=== PATIENT | female | born 1960 | race Caucasian/White ===

== ENCOUNTER 2020-07-02 09:10 | Outpatient (REF) | payer MEDICARE, SELFPAY ==
[2020-07-02 11:23] LABS: MANUAL DIFF FLAG NO
[2020-07-02 11:33] LABS: Basophils Absolute Auto 0.1 X10*3/uL (0.0-0.2); Basophils Percent Auto 0.6 % (0-2); Eosinophils Absolute Auto 0.2 X10*3/uL (0.0-0.4); Eosinophils Percent Auto 2.2 % (0-4); Hemoglobin 12.6 g/dl (12.0-16.0); Imm Gran Abs Auto 0.06 X10*3/uL (0.00-0.03); Imm Gran Pct Auto 0.6 % (0.0-0.4); Lymphocytes Absolute Auto 2.3 X10*3/uL (1.2-4.9); Lymphocytes Percent Auto 23.3 % (20-40); Mean Corpuscular HGB Conc 29.3 g/dl (31.0-35.0); Mean Corpuscular Hemoglobin 24.3 pg (27.0-33.0); Mean Platelet Volume 11.9 fL (9.4-12.3); Monocytes Absolute Auto 0.7 X10*3/uL (0.1-1.2); Neutrophils Absolute Auto 6.7 X10*3/uL (2.0-8.3); Neutrophils Percent Auto 66.3 % (45-73); Platelet Count 318 X10*3/uL (160-400); Red Blood Count 5.18 X10*6/uL (4.20-5.50); Red Cell Distribution Width 14.6 % (11.0-16.0)
[2020-07-02 11:44] LABS: Alanine Aminotransferase 27 U/L (0-31); Albumin Level 4.3 g/dL (3.5-5.0); Alkaline Phosphatase 98 U/L (39-117); Anion Gap 14 (12-20); Aspartate Amino Transferase 21 U/L (5-31); Bilirubin Total 0.3 mg/dL (0.0-1.0); Blood Urea Nitrogen 16 mg/dL (9-16); Calcium 9.1 mg/dL (8.4-10.2); Carbon Dioxide 27 mmol/L (22-29); Chloride 103 mmol/L (96-108); Cholesterol 190 mg/dL; Estimated Glomerular Filt Rate > 60; Glucose Fasting 156 mg/dL (60-99); HDL Cholesterol 74 mg/dL; LDL Cholesterol Calculated 89 mg/dl; Potassium 4.8 mmol/l (3.3-5.1); Sodium 139 mmol/L (135-145); Total Protein 6.8 g/dL (6.5-8.0); Triglycerides 139 mg/dL
[2020-07-02 11:56] LABS: Creatinine Urine 154.94 mg/dL; Microalbum/Creatinine Ratio Ur 10.3 ug/mg cr
[2020-07-02 12:07] LABS: TSH reflex Free T4 1.29 mIU/mL (0.32-4.0); Vitamin D 25-OH Total 34.4 ng/mL (>30)
[2020-07-02 12:24] LABS: Folate 8.3 ng/mL (> or = 4.0); Vitamin B12 1855 pg/mL (200-900)
== END 2020-07-02 09:11 | disposition home or self-care (01) ==
LOC: HO.HMGCLDS 09:10
PROVIDERS: PCP Internal Medicine; Visit Provider Internal Medicine
DX: E11.22 Type 2 diabetes mellitus with diabetic chronic kidney disease (principal); N18.30 Chronic kidney disease, stage 3 unspecified; E78.2 Mixed hyperlipidemia; E66.01 Morbid (severe) obesity due to excess calories; G62.9 Polyneuropathy, unspecified
CPT/HCPCS: 36415; 80053; 80061; 82043; 82306; 82607; 82746; 84443; 85025

== ENCOUNTER → 2020-08-21 13:07 | Outpatient (BNVA) | payer MEDICARE, SELFPAY | PROVIDERS: PCP Internal Medicine; Visit Provider Urology | DX: Z13.89 Encounter for screening for other disorder (principal) | CPT/HCPCS: 99202 ==

== ENCOUNTER → 2020-09-23 08:48 | Outpatient (BNVA) | payer MEDICARE, SELFPAY | PROVIDERS: PCP Internal Medicine; Visit Provider Urology | DX: N32.1 Vesicointestinal fistula (principal) | CPT/HCPCS: 52000; 81002; 99212 ==

== ENCOUNTER 2020-10-20 14:49 | Outpatient (REF) | payer MEDICARE, SELFPAY ==
[2020-10-20 16:59] LABS: Blood Urea Nitrogen 17 mg/dL (9-16); Estimated Glomerular Filt Rate 59
== END 2020-10-20 14:50 | disposition home or self-care (01) ==
LOC: HO.LAB 14:49
PROVIDERS: PCP Internal Medicine; Visit Provider Surgery
DX: N32.1 Vesicointestinal fistula (principal)
CPT/HCPCS: 36415; 82565; 84520; 99202

== ENCOUNTER 2020-10-31 13:21 | Outpatient (REF) | payer MEDICARE, SELFPAY ==
--- NOTE | ~2020-10-31 | CT_ITS ---
EXAMINATION: CT ABDOMEN AND PELVIS WITH CONTRAST CLINICAL INFORMATION: Vesicointestinal fistula. COMPARISON: None TECHNIQUE: Multidetector volumetric images were obtained from the superior aspect of the liver through the pubic symphysis following administration 85 mL of Omnipaque 350 intravenous contrast. Sagittal and coronal reformatted images were obtained on the technologist's workstation. Oral contrast: No This CT examination was performed using dose optimization techniques as appropriate, variously including the following: *Automated exposure control *Adjustment of mA and/or kV according to patient size (this includes techniques or standardized protocols for targeted exams where dose is matched to indication/reason for exam; i.e. extremities or head) *Use of iterative reconstruction technique DLP: 784 mGy-cm FINDINGS: LUNG BASES: The visualized lung bases are unremarkable. LIVER, GALLBLADDER, AND BILIARY TREE: The liver is normal in size, shape, and hypoattenuation. No focal hepatic lesion or biliary ductal dilatation is present. The gallbladder is not visualized. PANCREAS: There is mild attenuation of head and uncinate process of the pancreas. The body and the tail of pancreas is unremarkable. SPLEEN: Unremarkable. ADRENAL GLANDS: Unremarkable. KIDNEYS AND URETERS: The kidneys are normal in size, lobulated shape, and normal attenuation. No hydronephrosis, hydroureter, or calculi seen. No perinephric stranding. BLADDER: Unremarkable. GASTROINTESTINAL TRACT: There is scattered stool and diverticula seen throughout the colon without any distention or diverticulitis. The small bowel loops are normal caliber. No free air or free fluid seen. No abnormal fluid collection or abscess seen. ABDOMINAL WALL: No significant hernia is appreciated. LYMPH NODES: Normal. VASCULAR: Unremarkable. PELVIC VISCERA: The uterus has been surgically removed. There is no free air or free fluid. There is no adnexal mass seen. OSSEOUS STRUCTURES: There are degenerative disc changes and ventral spondylosis throughout the lower dorsal and lumbar spine. No lytic process. CT/CT abdomen pelvis w con IMPRESSION: Sigmoid diverticulosis without diverticulitis. There is no fistulous connection, air-fluid level or fluid collection adjacent to the sigmoid colon and the bladder. Lobulated right kidney contour but no radiopaque renal calculi or hydronephrosis seen. Moderate constipation. Diffuse attenuation of liver likely hepatic steatosis. No focal lesion seen.
[2020-10-31] MEDS: iohexoL 350 MG/ML 100 ML INFUS..BTL IV (14:36)
== END 2020-10-31 13:22 | disposition home or self-care (01) ==
LOC: HO.CT 13:21
PROVIDERS: PCP Internal Medicine; Visit Provider Surgery
DX: N32.1 Vesicointestinal fistula (principal)
CPT/HCPCS: 74177; Q9967

== ENCOUNTER 2020-11-03 14:23 | Outpatient (REF) | payer MEDICARE, SELFPAY ==
--- NOTE | ~2020-11-03 | XR_ITS ---
EXAMINATION: XR KNEE, RIGHT CLINICAL INFORMATION: Pain COMPARISON: Previous x-ray August 2007 TECHNIQUE: Four views of the right knee. FINDINGS: There is a slight medial subluxation of the distal femur with respect to the proximal tibia. Bone alignment is otherwise normal. No fracture or dislocation is seen. There is joint space narrowing at the medial femoral tibial joint. There is lateral degenerative meniscal calcification. There are osteophytes at the patellofemoral joint. There is a slight lateral subluxation of the patella on the sunrise view. There is no significant joint effusion. XR/XR knee RT 4V IMPRESSION: Degenerative changes and medial subluxation of the distal tibia with respect to the proximal fibula. This appears increased from 2018 exams.
== END 2020-11-03 14:24 | disposition home or self-care (01) ==
LOC: HO.XRAY 14:23
PROVIDERS: PCP Internal Medicine; Visit Provider Internal Medicine
DX: N32.1 Vesicointestinal fistula (principal); R39.89 Other symptoms and signs involving the genitourinary system; E11.9 Type 2 diabetes mellitus without complications; I10 Essential (primary) hypertension; E78.2 Mixed hyperlipidemia; E66.01 Morbid (severe) obesity due to excess calories; Z88.1 Allergy status to other antibiotic agents; Z91.041 Radiographic dye allergy status; Z91.013 Allergy to seafood; Z88.2 Allergy status to sulfonamides; Z88.8 Allergy status to other drugs, medicaments and biological substances; Z91.018 Allergy to other foods; Z91.81 History of falling; Z79.84 Long term (current) use of oral hypoglycemic drugs; Z79.899 Other long term (current) drug therapy
CPT/HCPCS: 73564; 99212

== ENCOUNTER → 2021-01-05 09:49 | Outpatient (BNVA) | payer MEDICARE, SELFPAY | PROVIDERS: PCP Internal Medicine; Visit Provider Nurse Practitioner Gerontology | DX: E11.65 Type 2 diabetes mellitus with hyperglycemia (principal); E78.2 Mixed hyperlipidemia; I10 Essential (primary) hypertension; E66.01 Morbid (severe) obesity due to excess calories; Z68.42 Body mass index [BMI] 45.0-49.9, adult | CPT/HCPCS: 82947; 99212 ==

== ENCOUNTER 2021-01-13 11:20 | Outpatient (REF) | payer MEDICARE, SELFPAY ==
--- NOTE | ~2021-01-13 | US_ITS ---
EXAMINATION: US THYROID CLINICAL INFORMATION: Nontoxic goiter, unspecified. COMPARISON: None TECHNIQUE: Linear transducer grayscale and color Doppler examination with attention to the region of the thyroid. FINDINGS: SIZE: Measurements of the thyroid lobes and nodules are given in sagittal, anteroposterior and transverse dimensions respectively. Right Thyroid Lobe: 5.4 x 1.5 x 1.7 cm, volume 7.1 mL. Parenchyma: The gland echotexture is heterogeneous. Thyroid vascularity is normal. Left Thyroid Lobe: 5.6 x 1.5 x 1.9 cm, volume 8.4 mL. Parenchyma: The gland echotexture is heterogeneous. Thyroid vascularity is normal. Isthmus: 0.6 cm in maximum AP dimension. Estimated total number of nodules greater than or equal to 1 cm: 3. Patient Care Technician nodules are described as follows: 1. Location: Right mid pole. Size: 0.9 x 0.6 x 1.0 cm, volume 0.28 mL. Nodule characteristics: Composition: Spongiform (0). ACR TI-RADS total points: 0 ACR TI-RADS category: 1 2. Location: Right mid pole. Size: 1.0 x 0.5 x 0.7 cm, volume 0.18 mL. Nodule characteristics: Composition: Spongiform (0). ACR TI-RADS total points: 0 ACR TI-RADS category: 1 3. Location: Left lower pole. Size: 1.8 x 1.7 x 1.7 cm, volume 2.7 mL. Nodule characteristics: Composition: Solid (2). Echogenicity: Hyperechoic (1). Shape: Not taller than wide (0). Margins: Smooth (0). Echogenic Foci: None (0). ACR TI-RADS total points: 3 ACR TI-RADS category: 3 NODES: No lymphadenopathy is seen in the tissue surrounding the thyroid gland. US/US thyroid IMPRESSION: 1. Bilateral thyroid nodules are seen, as detailed. Recommend follow-up ultrasound examination in one year. 2. There is heterogeneous thyroid echotexture, which can be associated with thyroiditis. ACR TI-RADS RECOMMENDATION REFERENCE: Ultrasound-guided fine-needle aspiration, followup ultrasound, no further follow up. * TR1 (0 point) and TR 2 (2 points): No FNA or follow up * TR3 (3 points): FNA if more than or equal to 2.5 cm in maximum dimension, followup ultrasound in 1, 3 and 5 years if 1.5 to 2.4 cm in maximum dimension. * TR4 (4-6 points): FNA if more than or equal to 1.5 cm in maximum dimension, followup ultrasound in 1, 2, 3 and 5 years if 1 to 1.4 cm in maximum dimension. * TR5 (more than or equal to 7 points): FNA if more than or equal to 1 cm in maximum dimension, followup ultrasound every year for 5 years if 0.5 to 0.9 cm in maximum dimension. * TR3, TR4 or TR5 nodules that are below the size threshold for follow up receive no follow up.
== END 2021-01-13 11:21 | disposition home or self-care (01) ==
LOC: HO.HMGCX 11:20
PROVIDERS: PCP Internal Medicine; Visit Provider Nurse Practitioner Gerontology
DX: E04.9 Nontoxic goiter, unspecified (principal)
CPT/HCPCS: 76536

== ENCOUNTER 2021-01-20 08:58 | Outpatient (REF) | payer MEDICARE, SELFPAY ==
[2021-01-20 12:13] LABS: Free T4 (Free Thyroxine) 1.01 ng/dL (0.71-1.85); Thyroid Stimulating Hormone 1.75 uIU/mL (0.32-4.0)
[2021-01-21 20:06] LABS: Thyroglobulin Antibodies <1 IU/mL (< or = 1); Thyroid Peroxidase Antibodies <1 IU/mL (<9)
== END 2021-01-20 08:59 | disposition home or self-care (01) ==
LOC: HO.HMGCLDS 08:58
PROVIDERS: PCP Internal Medicine; Visit Provider Nurse Practitioner Gerontology
DX: E04.9 Nontoxic goiter, unspecified (principal)
CPT/HCPCS: 36415; 84439; 84443; 86376; 86800

== ENCOUNTER 2021-03-17 08:43 | Outpatient (REF) | payer MEDICARE, SELFPAY ==
[2021-03-17 12:25] LABS: Creatinine Urine 147.46 mg/dL; Microalbum/Creatinine Ratio Ur 16.9 ug/mg cr
[2021-03-17 12:33] LABS: Alanine Aminotransferase 23 U/L (0-31); Albumin Level 4.2 g/dL (3.5-5.0); Alkaline Phosphatase 97 U/L (39-117); Anion Gap 15 (12-20); Aspartate Amino Transferase 21 U/L (5-31); Bilirubin Total 0.2 mg/dL (0.0-1.0); Blood Urea Nitrogen 14 mg/dL (9-16); Calcium 9.9 mg/dL (8.4-10.2); Carbon Dioxide 24 mmol/L (22-29); Chloride 104 mmol/L (96-108); Cholesterol 196 mg/dL; Estimated Glomerular Filt Rate 56; Glucose Fasting 311 mg/dL (60-99); HDL Cholesterol 54 mg/dL; LDL Cholesterol Calculated 94 mg/dl; Potassium 4.9 mmol/L (3.3-5.1); Sodium 138 mmol/L (135-145); Total Protein 6.8 g/dL (6.5-8.0); Triglycerides 241 mg/dL
[2021-03-21 13:16] LABS: Vitamin D 25-OH, D2 <4 ng/mL; Vitamin D 25-OH, D3 41 ng/mL; Vitamin D 25-OH, Total 41 ng/mL (30-100)
== END 2021-03-17 08:44 | disposition home or self-care (01) ==
LOC: HO.HMGCLDS 08:43
PROVIDERS: PCP Internal Medicine; Visit Provider Internal Medicine
DX: E78.2 Mixed hyperlipidemia (principal); E78.5 Hyperlipidemia, unspecified; E11.9 Type 2 diabetes mellitus without complications; E55.9 Vitamin D deficiency, unspecified
CPT/HCPCS: 36415; 80053; 80061; 82043; 82306

== ENCOUNTER 2021-03-26 07:45 | Outpatient (REF) | payer MEDICARE, SELFPAY ==
--- NOTE | 2021-03-26 08:44 | PM.OP ---
Brief Operative Note Date of Service: 03/26/21 Pre-op diagnosis: Multinodular Thyroid Procedure: This is doctor Leigha Kuhn. This is an ultrasound-guided fine-needle aspiration report. Date of Examination: 03/26/2021 Indication: Multinodular Thyroid Porcedure: Procedure was explained to the patient. Alternatives, the risk and benefits were discussed. Written consent was obtained. A time-out was also obtained. After sterile preparation, fine-needle aspiration of a left lower pole 1.8 cm thyroid nodule was performed using direct ultrasound guidance to confirm accurate needle placement. Four aspirations were made using 27 gauge needles. Samples were submitted for cytology. 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 The patient tolerated the procedure well. Aftercare instructions were provided. Impression: Uncomplicated fine needle aspiration biopsy of a left lower pole 1.8 cm thyroid nodule under ultrasound guidance. The 2 right mid pole nodules that were previously measured at 1.0 cm, measured 0.7 cm and 0.8 cm in greatest dimension today, thus no FNA biopsy was performed on these nodules. Surgeon: Leigha Kuhn, DO Was an Party Director used for this Procedure?: No Estimated blood loss (mL): 0
== END 2021-03-26 07:46 | disposition home or self-care (01) ==
LOC: HO.US 07:45
PROVIDERS: PCP Internal Medicine; Visit Provider Internal Medicine
DX: E04.2 Nontoxic multinodular goiter (principal)
CPT/HCPCS: 10005; 88172; 88173; 88177

== ENCOUNTER → 2021-03-27 08:38 | Outpatient (BNVA) | payer MEDICARE, SELFPAY | PROVIDERS: PCP Internal Medicine; Visit Provider Nurse Practitioner Gerontology | DX: E11.65 Type 2 diabetes mellitus with hyperglycemia (principal); E66.01 Morbid (severe) obesity due to excess calories; E78.2 Mixed hyperlipidemia; E04.9 Nontoxic goiter, unspecified; I10 Essential (primary) hypertension; Z68.42 Body mass index [BMI] 45.0-49.9, adult | CPT/HCPCS: Q3014 ==

== ENCOUNTER → 2021-04-09 11:14 | Outpatient (BNVA) | payer MEDICARE, SELFPAY | PROVIDERS: PCP Internal Medicine; Visit Provider Internal Medicine | DX: Z13.89 Encounter for screening for other disorder (principal) | CPT/HCPCS: Q3014 ==

== ENCOUNTER → 2021-05-21 10:22 | Outpatient (BNVA) | payer MEDICARE, SELFPAY | PROVIDERS: PCP Internal Medicine; Visit Provider Nurse Practitioner Gerontology | DX: E11.65 Type 2 diabetes mellitus with hyperglycemia (principal); E78.2 Mixed hyperlipidemia; E66.01 Morbid (severe) obesity due to excess calories; I10 Essential (primary) hypertension; Z68.42 Body mass index [BMI] 45.0-49.9, adult; Z79.4 Long term (current) use of insulin | CPT/HCPCS: 82947; 99212 ==

== ENCOUNTER → 2021-07-20 10:40 | Outpatient (BNVA) | payer MEDICARE, SELFPAY | PROVIDERS: PCP Internal Medicine; Referring Provider Internal Medicine; Visit Provider Physician Assistant | DX: Z12.11 Encounter for screening for malignant neoplasm of colon (principal); N32.1 Vesicointestinal fistula; N36.0 Urethral fistula; F41.9 Anxiety disorder, unspecified | CPT/HCPCS: 99202 ==

== ENCOUNTER 2021-07-23 07:21 | Outpatient (REF) | payer MEDICARE, SELFPAY ==
[2021-07-23 11:35] LABS: Alanine Aminotransferase 33 U/L (0-31); Albumin Level 4.1 g/dL (3.5-5.0); Alkaline Phosphatase 100 U/L (39-117); Anion Gap 13 (12-20); Aspartate Amino Transferase 31 U/L (5-31); Bilirubin Total 0.3 mg/dL (0.0-1.0); Blood Urea Nitrogen 14 mg/dL (9-16); Calcium 9.7 mg/dL (8.4-10.2); Carbon Dioxide 24 mmol/L (22-29); Chloride 106 mmol/L (96-108); Cholesterol 192 mg/dL; Estimated Glomerular Filt Rate > 60; Glucose Random 244 mg/dL (60-115); HDL Cholesterol 51 mg/dL; LDL Cholesterol Calculated 97 mg/dl; Potassium 4.6 mmol/L (3.3-5.1); Sodium 138 mmol/L (135-145); Total Protein 6.8 g/dL (6.5-8.0); Triglycerides 223 mg/dL
[2021-07-23 12:45] LABS: Creatinine Urine 143.27 mg/dL; Microalbum/Creatinine Ratio Ur 19.5 ug/mg cr
[2021-07-28 14:43] LABS: Vitamin D 25-OH, D2 <4 ng/mL; Vitamin D 25-OH, D3 33 ng/mL; Vitamin D 25-OH, Total 33 ng/mL (30-100)
== END 2021-07-23 07:22 | disposition home or self-care (01) ==
LOC: HO.HMGCLDS 07:21
PROVIDERS: Visit Provider Internal Medicine
DX: E11.65 Type 2 diabetes mellitus with hyperglycemia (principal); E55.9 Vitamin D deficiency, unspecified; E78.5 Hyperlipidemia, unspecified
CPT/HCPCS: 36415; 80053; 80061; 82043; 82306

== ENCOUNTER 2021-08-21 07:06 | Day surgery (SDC) | payer MEDICARE, SELFPAY ==
[2021-08-21 07:17] VITALS: BMI 49.6
[2021-08-21 07:32] VITALS: BP 154/73; PULSE 106; RESP 18; TEMP 36.4; O2SAT 97
[2021-08-21 07:40] LABS: Glucose, Whole Blood 247 mg/dL (60-115)
[2021-08-21] MEDS: Lactated Ringers 1,000 ML 50 ML IVCONT (07:44)
--- NOTE | 2021-08-21 07:49 | MHC.SHP ---
Pre-Procedural Eval Section A Date of Service: 08/21/21 Section B Chief Complaint: Screening Details of Present Illness: Colon cancer screening, colo-vesical fistula Relevant Family History (Specify if Yes): No Relevant Social History: Tobacco Use (past smoker) Present Medications: see Short Stay Collaborative assessment Medical History: Significant History (Anxiety Diabetes mellitus Diabetes type 2, uncontrolled Essential hypertension GERD (gastroesophageal reflux disease) Goiter Lumbar degenerative disc disease Mixed hyperlipidemia Morbid obesity Multinodular thyroid Obesity due to excess calories Right knee pain 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) History of Previous Operations: Relevant previous surgery/procedure and date(s) (History of carpal tunnel release History of cholecystectomy History of lumbar fusion History of lumbar laminectomy History of total abdominal hysterectomy and bilateral salpingo-oophorectomy History of tubal ligation Hx of cystoscopy Status post fine needle aspiration) Allergies: Allergies Allergy/AdvReac Type Severity Reaction Status Date / Time Iodinated Contrast Media Allergy Severe ANAPHYLAXIS Verified 08/17/21 16:59 [IV CONTRAST] morphine [MORPHINE] Allergy Severe CARDIAC Verified 08/17/21 16:59 ARREST Sulfa (Sulfonamide Allergy Severe WASNT ABLE Verified 08/17/21 16:59 Antibiotics) TO SEE, [SULFA(SULFONAMIDE right eye ANTIBIOTICS)] blindness adhesive tape Allergy Intermediate BLISTERS Verified 08/17/21 16:59 amoxicillin [Augmentin] Allergy Intermediate hives Verified 08/17/21 16:59 ciprofloxacin [Cipro] Allergy Intermediate hives Verified 08/17/21 16:59 clavulanic acid [Augmentin] Allergy Intermediate hives Verified 08/17/21 16:59 erythromycin base Allergy Intermediate HIVES Verified 08/17/21 16:59 [Erythromycin Base] iodine [IODINE] Allergy Intermediate BLISTERS Verified 08/17/21 16:59 levofloxacin [From LEVAQUIN] Allergy Intermediate RASH Verified 08/17/21 16:59 lobster Allergy Intermediate hives Uncoded 08/17/21 16:59 pork Allergy Intermediate hives Uncoded 08/17/21 16:59 Review of Systems Sugical H&P ROS: Negative: Constitution, Cardiovascular, Respiratory and Gastrointestinal Exam Surgical H&P Exam: Normal: Heart, Normal: Lungs, Normal: Extremities and Normal: Abdomen Plan Diagnosis/Plan: Unchanged I have reviewed the history and physical and performed a pertinent physical examination on my patient. No changes have occurred unless specified.
--- NOTE | 2021-08-21 07:54 | W.PM.OPN ---
Operative Note Operative Note Date of Service: 08/21/21 Narrative: Pre-op diagnosis: Colon cancer screening, colo- vesical fistula Post-op diagnosis:?other ( diverticulosis, hemorrhoids) Procedure: COLONOSCOPY TILL CECUM WITH BIOPSIES Consent: Indications for the procedure and potential complications of bleeding, perforation, reaction to medications and missed diagnosis were discussed with the patient and informed consent was obtained. Instrument: Olympus PCF H 190 L variable stiffness pediatric colonoscope Monitoring: Vital signs and clinical assessment, intermittent blood pressure monitoring, continuous EKG monitoring, Pulse oximetry and Carbon Dioxide monitoring were done throughout the procedure. Colon withdrawl time was 21 minutes. Procedure: The patient was placed in the left lateral decubitis position and pre-procedure medications were administered. After a digital rectal examination of the ano-rectum, the video colonoscope was inserted into the rectum and advanced through the colon to the cecum. The colonoscope was slowly withdrawn in a retrograde panoramic fashion and the colon mucosa was carefully examined including a retroflexed view of the rectum. Findings and interventions are described below. Procedure Difficulty: Without difficulty Findings: Terminal Ileum: Distal 10 cms? was examined and appeared normal. Cecum:? Normal. ? Prominent ileocecal valve -? biopsies were obtained Ascending Colon:? ? Slightly nodular appearing mucosa -? random biopsies were obtained to check for microscopic colitis Transverse Colon: ? moderate diverticulosis Descending Colon:? Slightly nodular appearing mucosa -? random biopsies were obtained to check for microscopic colitis Sigmoid Colon:? Severe? diverticulosis with luminal narrowing at 30 cms navigated with some difficuty due to a sharp turn. Rectum:? Normal Ano-rectum:? Small internal hemorrhoids Colon preparation:? Good? Impression and Post Procedure Diagnosis: Colonoscopy Findings: No polyps were detected No fistulous opening was noted - likely hidden among colonic folds. Moderate? to severe diverticulosis seen in the left and transverse colon Severe? diverticulosis with luminal narrowing at 30 cms navigated with some difficuty due to a sharp turn. Small hemorrhoids on retroflexed exam. Plan: Await pathology results Patient has an appointment on 09/03/21 in the [facility] with CITLALLI Montes. Consider Barium enema to visualize location of [place]-vesical fistula - can check with her surgeons if they prefer to schedule in [place]. Repeat Colonoscopy in 10 years. Above findings were reviewed with the patient and diverticulosis handout was given in the discharge area Surgeon: Kenia Cade MD Anesthesia:?MAC (Phyllis Mederos, JESENIA) Was an Truck Bench Mechanic used for this Procedure?:?Yes Truck Bench Mechanic:?Tea Maguire Estimated blood loss (mL):?0 Pathology:?other (A- RIGHT COLON BIOPSIES - R/O MICROSCOPIC COLITIS? B- ILEO-CECAL BIOPSIES? C- LEFT COLON BIOPSIES-? R/O MICROSCOPIC COLITIS) Condition:?stable Disposition:?PACU
--- NOTE | 2021-08-21 08:06 | HO.ANESPROP2 ---
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 (Acute) Diabetes mellitus (Acute) Essential hypertension (Acute) Lumbar degenerative disc disease (Acute) Past Medical History Medical History Anxiety Chronic back pain Diabetes mellitus Diabetes type 2, uncontrolled Essential hypertension Frequent UTI GERD (gastroesophageal reflux disease) Goiter Lumbar degenerative disc disease Mixed hyperlipidemia Morbid obesity Multinodular thyroid Obesity due to excess calories Right knee pain 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 Family History Family History Father Melanoma Hypercholesteremia Substance use disorder Mother Diabetes Hypertension Bladder cancer Maternal Grandmother Cancer Family/Other FH: mental illness Family history of problems with anesthesia: No Surgical History Surgical History History of carpal tunnel release History of cholecystectomy History of lumbar fusion History of lumbar laminectomy History of total abdominal hysterectomy and bilateral salpingo-oophorectomy History of tubal ligation Hx of cystoscopy Status post fine needle aspiration History of Problems with Anesthesia: No Social History Social History Household Members: Spouse Housing: House Alcohol intake: current Alcohol intake frequency: does not drink Patient Tobacco Use Status: Former Tobacco user Quit Date: 29 years ago Tobacco use type: Cigarette Years Smoked: 30 years e-Cigarette/Vaping Use: Never Used Second Hand Smoke Exposure: No Use of substances other than those prescribed or required for medical reasons: No Are you DNR?: No Advance Directives: No Advance Directives Information Provided: Yes Recently lost weight without trying: No Nutrition Risks: No Nutritional Risk service: No Current occupational status: disabled Meds Allergies Allergy/AdvReac Type Severity Reaction Status Date / Time Iodinated Contrast Media Allergy Severe ANAPHYLAXIS Verified 08/17/21 16:59 [IV CONTRAST] morphine [MORPHINE] Allergy Severe CARDIAC Verified 08/17/21 16:59 ARREST Sulfa (Sulfonamide Allergy Severe WASNT ABLE Verified 08/17/21 16:59 Antibiotics) TO SEE, [SULFA(SULFONAMIDE right eye ANTIBIOTICS)] blindness adhesive tape Allergy Intermediate BLISTERS Verified 08/17/21 16:59 amoxicillin [Augmentin] Allergy Intermediate hives Verified 08/17/21 16:59 ciprofloxacin [Cipro] Allergy Intermediate hives Verified 08/17/21 16:59 clavulanic acid [Augmentin] Allergy Intermediate hives Verified 08/17/21 16:59 erythromycin base Allergy Intermediate HIVES Verified 08/17/21 16:59 [Erythromycin Base] iodine [IODINE] Allergy Intermediate BLISTERS Verified 08/17/21 16:59 levofloxacin [From LEVAQUIN] Allergy Intermediate RASH Verified 08/17/21 16:59 lobster Allergy Intermediate hives Uncoded 08/17/21 16:59 pork Allergy Intermediate hives Uncoded 08/17/21 16:59 Active Medications: Current Medications Lactated Ringer's (Lr) 1,000 mls @ 50 mls/hr IVCONT .Q20H JOVANY Last Admin: 08/21/21 07:44 Dose: 50 mls/hr Documented by: Home Medications Medication Instructions Recorded Confirmed Last Taken Type multivitamin 1 tab PO DAILY 10/20/20 08/17/21 Unknown History Exam Exam Date and Time: August 21, 2021 0806 Height,Weight and Vital Signs: Height 5 ft 1 in Weight 119.295 kg Last Vital Signs Temp 97.6 F 08/21/21 07:32 Pulse 106 H 08/21/21 07:32 Resp 18 08/21/21 07:32 BP 154/73 H 08/21/21 07:32 Pulse Ox 97 08/21/21 07:32 Pertinent Lab Results Pertinent Lab Results: Laboratory Tests 08/21/21 07:36 POC Glucose 247 H Airway Mallampati Class: II TM Dist: >3cm Neck ROM: Full Denture: Upper Loose/Missing/Broken Teeth: Yes Heart: [id number] Lungs: cta b/l Assessment and Plan Assessment Anesthesia Assessment: Anesthesia Plan Discussed and Chart Reviewed Final Anesthetic Review Family History of Problems with Anesthesia: No History of Problems with Anesthesia: No NPO: Yes ASA Class: III Final Preanesthetic Review: No Changes in Pt Med Stat, Meds/Allgs Chart Reviewed, Consent Obtained/Reviewed and Anes Risks/Benef Reviewed Patient Risk: Intermediate Procedure Risk: Low Assessment/Block/Sedation in SS: Assess/Block/Sedation-SS Anesthetic Plan Anesthetic Plan: MAC: and Agree w/ Assess. and Plan Disposition: Standard PACU
[2021-08-21 09:43] VITALS: BP 124/59; PULSE 96; RESP 20; TEMP 36.2; O2SAT 97
[2021-08-21 09:58] VITALS: BP 149/79; PULSE 82; RESP 20; TEMP 36.2; O2SAT 100
== END 2021-08-21 10:27 | disposition home or self-care (01) ==
PROVIDERS: PCP Internal Medicine; Visit Provider Internal Medicine Gastroenterology
PROC: 0DJD8ZZ Inspection of Lower Intestinal Tract, Via Natural or Artificial Opening Endoscopic (ICD-10-PCS; CPT 45378; principal; 2021-08-21 08:20)
DX: Z12.11 Encounter for screening for malignant neoplasm of colon (principal); K57.30 Diverticulosis of large intestine without perforation or abscess without bleeding; K64.8 Other hemorrhoids; N32.1 Vesicointestinal fistula; R32 Unspecified urinary incontinence; R39.15 Urgency of urination; Z87.440 Personal history of urinary (tract) infections; F41.1 Generalized anxiety disorder; K21.9 Gastro-esophageal reflux disease without esophagitis; I10 Essential (primary) hypertension; E78.2 Mixed hyperlipidemia; E11.9 Type 2 diabetes mellitus without complications; E66.01 Morbid (severe) obesity due to excess calories; Z68.42 Body mass index [BMI] 45.0-49.9, adult; Z79.4 Long term (current) use of insulin; Z79.899 Other long term (current) drug therapy; Z88.2 Allergy status to sulfonamides; Z88.8 Allergy status to other drugs, medicaments and biological substances; Z91.041 Radiographic dye allergy status; Z88.1 Allergy status to other antibiotic agents; Z90.49 Acquired absence of other specified parts of digestive tract; Z87.891 Personal history of nicotine dependence
CPT/HCPCS: 45380; 82947; 88305

== ENCOUNTER → 2021-08-27 10:53 | Outpatient (BNVA) | payer MEDICARE, SELFPAY | PROVIDERS: PCP Internal Medicine; Visit Provider Nurse Practitioner Gerontology | DX: E11.65 Type 2 diabetes mellitus with hyperglycemia (principal); E78.2 Mixed hyperlipidemia; I10 Essential (primary) hypertension; E66.01 Morbid (severe) obesity due to excess calories; Z68.42 Body mass index [BMI] 45.0-49.9, adult | CPT/HCPCS: 82947; 99212 ==

== ENCOUNTER → 2021-09-03 13:23 | Outpatient (BNVA) | payer MEDICARE, SELFPAY | PROVIDERS: PCP Internal Medicine; Referring Provider Internal Medicine; Visit Provider Physician Assistant | DX: N32.1 Vesicointestinal fistula (principal); K21.9 Gastro-esophageal reflux disease without esophagitis; K57.90 Diverticulosis of intestine, part unspecified, without perforation or abscess without bleeding; Z98.890 Other specified postprocedural states | CPT/HCPCS: 99212 ==

== ENCOUNTER → 2021-11-26 10:22 | Outpatient (BNVA) | payer MEDICARE, SELFPAY | PROVIDERS: PCP Internal Medicine; Visit Provider Nurse Practitioner Gerontology | DX: E11.65 Type 2 diabetes mellitus with hyperglycemia (principal); E78.2 Mixed hyperlipidemia; I10 Essential (primary) hypertension; E66.01 Morbid (severe) obesity due to excess calories; Z68.43 Body mass index [BMI] 50.0-59.9, adult | CPT/HCPCS: 82947; 83036; 99212 ==

== ENCOUNTER 2021-12-21 08:15 | Outpatient (REF) | payer MEDICARE, SELFPAY ==
[2021-12-21 11:36] LABS: Estimated Average Glucose 192 mg/dL; Hemoglobin A1c % 8.3 %
[2021-12-21 12:09] LABS: Alanine Aminotransferase 33 U/L (0-31); Albumin Level 4.2 g/dL (3.5-5.0); Alkaline Phosphatase 92 U/L (39-117); Anion Gap 13 (12-20); Aspartate Amino Transferase 29 U/L (5-31); Bilirubin Total < 0.2 mg/dL (0.0-1.0); Blood Urea Nitrogen 16 mg/dL (9-16); Calcium 9.3 mg/dL (8.4-10.2); Carbon Dioxide 25 mmol/L (22-29); Chloride 106 mmol/L (96-108); Cholesterol 220 mg/dL; Estimated Glomerular Filt Rate > 60; Glucose Fasting 197 mg/dL (60-99); HDL Cholesterol 62 mg/dL; LDL Cholesterol Calculated 108 mg/dl; Potassium 4.9 mmol/L (3.3-5.1); Sodium 139 mmol/L (135-145); Total Protein 6.8 g/dL (6.5-8.0); Triglycerides 253 mg/dL
[2021-12-21 12:23] LABS: Creatinine Urine 111.25 mg/dL; Microalbum/Creatinine Ratio Ur 15.2 ug/mg cr
== END 2021-12-21 08:16 | disposition home or self-care (01) ==
LOC: HO.HMGCLDS 08:15
PROVIDERS: PCP Internal Medicine; Visit Provider Internal Medicine
DX: E11.65 Type 2 diabetes mellitus with hyperglycemia (principal); E11.40 Type 2 diabetes mellitus with diabetic neuropathy, unspecified; E78.5 Hyperlipidemia, unspecified
CPT/HCPCS: 36415; 80053; 80061; 82043; 83036

== ENCOUNTER 2021-12-24 10:05 | Outpatient (REF) | payer MEDICARE, SELFPAY ==
--- NOTE | ~2021-12-24 | XR_ITS ---
EXAMINATION: XR SHOULDER, RIGHT CLINICAL INFORMATION: M25.511 - Pain in right shoulder COMPARISON: None TECHNIQUE: Right shoulder is imaged in 4 views. FINDINGS: No fracture, dislocation, destructive process. Acromioclavicular alignment is normal. There are no visible rotator cuff calcifications. Glenohumeral joint appears normal. XR/XR shoulder RT min 2V IMPRESSION: Normal right shoulder.
--- NOTE | ~2021-12-24 | XR_ITS ---
EXAMINATION: XR LUMBOSACRAL SPINE CLINICAL INFORMATION: M51.36 - Other intervertebral disc degeneration, lumbar region COMPARISON: Radiographs lumbar spine 02/16/2017, CT abdomen and pelvis 10/31/2020 TECHNIQUE: Three views of the lumbosacral spine. FINDINGS: There is normal lumbar segmentation with 5 nonrib-bearing lumbar vertebrae of normal height and normal lumbar lordosis. There are postsurgical changes again seen with laminectomy at L4 and L5, posterior fusion, and screw upper right S1. Probable disc fusion is again present at L4-L5. There are chronic multilevel degenerative changes lower thoracic and L1-L4 lumbar spine. There are prominent bridging osteophytes at L2-L3, largest on left. No destructive process. The SI joints and visualized sacrum are unremarkable. There is posterior subluxation distal coccyx on the lateral view beyond field of view radiographs 2016 and questionably similar to the CT 2020. This may be correlated with patient's symptoms and clinical exam as needed. XR/XR lumbar spine 2-3V IMPRESSION: -Postsurgical changes L4-S1. -Multilevel degenerative changes lower thoracic and lumbar spine. Bulky bridging osteophytes L2-L3. -No vertebral compression or subluxation or destructive process. -Posterior subluxation distal coccyx, possibly chronic. Clinically correlate.
== END 2021-12-24 10:06 | disposition home or self-care (01) ==
LOC: HO.XRAY 10:05
PROVIDERS: PCP Internal Medicine; Visit Provider Internal Medicine
DX: M25.511 Pain in right shoulder (principal); M51.36 Other intervertebral disc degeneration, lumbar region
CPT/HCPCS: 72100; 73030

== ENCOUNTER 2022-03-18 14:41 | Outpatient (REF) | payer MEDICARE, SELFPAY ==
--- NOTE | ~2022-03-18 | US_ITS ---
EXAMINATION: US THYROID CLINICAL INFORMATION: Nontoxic multinodular goiter. COMPARISON: Ultrasound thyroid 01/13/2021. US-guided thyroid biopsy 03/26/2021. TECHNIQUE: Linear transducer grayscale and color Doppler examination with attention to the region of the thyroid. FINDINGS: SIZE: Measurements of the thyroid lobes and nodules are given in sagittal, anteroposterior and transverse dimensions respectively. Right Thyroid Lobe: 5.18 x 1.16 x 1.94 cm, volume 6.09 mL. Previously 5.39 x 1.46 x 1.72 cm, volume 7.10 mL. Parenchyma: The gland echotexture is homogeneous. Thyroid vascularity is normal. Left Thyroid Lobe: 4.92 x 1.52 x 2.11 cm, volume 8.24 mL. Previously 5.60 x 1.52 x 1.88 cm, volume 8.39 mL. Parenchyma: The gland echotexture is homogeneous. Thyroid vascularity is normal. Isthmus: 0.50 cm in maximum AP dimension. Previously 0.59 cm. Estimated total number of nodules greater than or equal to 1 cm: 2. Coat Padder nodules are described as follows: 1. Location: Right mid. Size: 1.0 x 0.60 x 0.85 cm, volume 0.30 mL. Previously: 0.90 x 0.60 x 1.0 cm, volume 2.8 mL. Nodule characteristics: Composition: Spongiform (0). Echogenicity: Anechoic (0). Shape: Not taller than wide (0). Margins: Smooth (0). Echogenic Foci: None (0). ACR TI-RADS total points: 0. Previous: 0. ACR TI-RADS category: 1. Previous: 1. Significant change in size (>/= 20% in 2 dimensions and minimal increase of 2 mm or 50% or greater increase in volume): None. Change in features: None. Change in ACR TI-RADS risk category: None. 2. Location: Right mid. Size: 0.90 x 0.65 x 0.80 cm, volume 0.25 mL. Previously: 1.0 x 0.50 x 0.70 cm, volume 0.18 mL. Nodule characteristics: Composition: Spongiform (0). Echogenicity: Anechoic (0). Shape: Not taller than wide (0). Margins: Smooth (0). Echogenic Foci: None (0). ACR TI-RADS total points: 0. Previous: 0. ACR TI-RADS category: 1. Previous: 1. Significant change in size (>/= 20% in 2 dimensions and minimal increase of 2 mm or 50% or greater increase in volume): None. Change in features: None. Change in ACR TI-RADS risk category: None. 3. Location: Left inferior. Size: 1.9 x 1.9 x 1.9 cm, volume 3.6 mL. Previously: 1.8 x 1.7 x 1.7 cm, volume 2.7 mL. Nodule characteristics: Composition: Solid (2). Echogenicity: Hyperechoic (1). Shape: Not taller than wide (0). Margins: Smooth (0). Echogenic Foci: None (0). ACR TI-RADS total points: 3. Previous: 3. ACR TI-RADS category: 3. Previous: 3. Significant change in size (>/= 20% in 2 dimensions and minimal increase of 2 mm or 50% or greater increase in volume): None. Change in features: None. Change in ACR TI-RADS risk category: None. NODES: No lymphadenopathy is seen in the tissue surrounding the thyroid gland. US/US thyroid IMPRESSION: Small nodules in both lobes are stable with no increased risk based on TI-RADS category. The left lower pole 3 mm nodule is solid. Recommend continued follow-up. ACR TI-RADS RECOMMENDATION REFERENCE: Ultrasound-guided fine-needle aspiration, followup ultrasound, no further follow up. * TR1 (0 point) and TR 2 (2 points): No FNA or follow up. * TR3 (3 points): FNA if more than or equal to 2.5 cm in maximum dimension, followup ultrasound in 1, 3 and 5 years if 1.5 to 2.4 cm in maximum dimension. * TR4 (4-6 points): FNA if more than or equal to 1.5 cm in maximum dimension, followup ultrasound in 1, 2, 3 and 5 years if 1 to 1.4 cm in maximum dimension. * TR5 (more than or equal to 7 points): FNA if more than or equal to 1 cm in maximum dimension, followup ultrasound every year for 5 years if 0.5 to 0.9 cm in maximum dimension. * TR3, TR4 or TR5 nodules that are below the size threshold for followup receive no follow up.
== END 2022-03-18 14:42 | disposition home or self-care (01) ==
LOC: HO.US 14:41
PROVIDERS: Visit Provider Internal Medicine
DX: E04.2 Nontoxic multinodular goiter (principal)
CPT/HCPCS: 76536

== ENCOUNTER 2022-03-25 12:21 | Outpatient (REF) | payer MEDICARE, SELFPAY ==
[2022-03-25 15:20] LABS: Estimated Average Glucose 171 mg/dL; Hemoglobin A1c % 7.6 %
[2022-03-25 15:39] LABS: Free T4 (Free Thyroxine) 0.98 ng/dL (0.71-1.85); Thyroid Stimulating Hormone 1.15 uIU/mL (0.32-4.0)
== END 2022-03-25 12:22 | disposition home or self-care (01) ==
LOC: HO.HMGCLDS 12:21
PROVIDERS: Absent Provider Internal Medicine; PCP Internal Medicine; Visit Provider Internal Medicine
DX: E04.2 Nontoxic multinodular goiter (principal); E11.40 Type 2 diabetes mellitus with diabetic neuropathy, unspecified
CPT/HCPCS: 36415; 83036; 84439; 84443

== ENCOUNTER → 2022-04-07 12:48 | Outpatient (BNVA) | payer MEDICARE, SELFPAY | PROVIDERS: PCP Internal Medicine; Visit Provider Internal Medicine | DX: E11.9 Type 2 diabetes mellitus without complications (principal); E78.5 Hyperlipidemia, unspecified; E04.2 Nontoxic multinodular goiter; I10 Essential (primary) hypertension; Z79.4 Long term (current) use of insulin | CPT/HCPCS: 82947; 99212 ==

== ENCOUNTER 2022-05-15 10:42 | Outpatient (REF) | payer MEDICARE, SELFPAY ==
--- NOTE | ~2022-05-15 | XR_ITS ---
EXAMINATION: XR LUMBOSACRAL SPINE CLINICAL INFORMATION: Pain COMPARISON: Lumbar spine x-rays December 24, 2021 TECHNIQUE: Three views of the lumbosacral spine. FINDINGS: 5 nonrib-bearing lumbar vertebral bodies are visualized. Alignment is unchanged. Lumbar vertebral body heights are maintained. Patient is status post surgical changes along the right L5/S1 level. Prominent osteophytes are scattered throughout the lumbar spine, the largest at the L2/3 level. Vascular calcifications. XR/XR lumbar spine 2-3V IMPRESSION: Similar prominent degenerative and postsurgical changes of the lumbar spine without compression deformity.
== END 2022-05-15 10:43 | disposition home or self-care (01) ==
LOC: HO.HMGCX 10:42
PROVIDERS: PCP Internal Medicine; Visit Provider Internal Medicine
DX: M54.50 Low back pain, unspecified (principal)
CPT/HCPCS: 72100

== ENCOUNTER 2022-06-23 06:57 | Outpatient (REF) | payer MEDICARE, SELFPAY ==
[2022-06-23 12:22] LABS: Creatinine Urine 242.49 mg/dL; Microalbum/Creatinine Ratio Ur 15.6 ug/mg cr
[2022-06-23 12:32] LABS: Cholesterol 185 mg/dL; HDL Cholesterol 52 mg/dL; LDL Cholesterol Calculated 86 mg/dl; Triglycerides 239 mg/dL
[2022-06-23 12:38] LABS: Vitamin D 25-OH Total 30.7 ng/mL (>30)
[2022-06-23 13:08] LABS: Alanine Aminotransferase 30 U/L (0-31); Albumin Level 4.2 g/dL (3.5-5.0); Alkaline Phosphatase 99 U/L (39-117); Anion Gap 15 (12-20); Aspartate Amino Transferase 30 U/L (5-31); Bilirubin Total 0.3 mg/dL (0.0-1.0); Blood Urea Nitrogen 19 mg/dL (9-16); Calcium 9.5 mg/dL (8.4-10.2); Carbon Dioxide 23 mmol/L (22-29); Chloride 108 mmol/L (96-108); Cholesterol 185 mg/dL; Estimated Glomerular Filt Rate 54; Glucose Fasting 195 mg/dL (60-99); Glucose Random 195 mg/dL (60-115); HDL Cholesterol 52 mg/dL; LDL Cholesterol Calculated 86 mg/dl; Potassium 4.5 mmol/L (3.3-5.1); Sodium 141 mmol/L (135-145); Total Protein 6.7 g/dL (6.5-8.0); Triglycerides 239 mg/dL
[2022-06-23 14:42] LABS: Estimated Average Glucose 163 mg/dL; Hemoglobin A1c % 7.3 %
[2022-06-24 22:08] LABS: LDL Cholesterol Direct 105 mg/dL (<100)
== END 2022-06-23 06:58 | disposition home or self-care (01) ==
LOC: HO.HMGCLDS 06:57
PROVIDERS: Absent Provider Internal Medicine; PCP Internal Medicine; Visit Provider Internal Medicine
DX: E55.9 Vitamin D deficiency, unspecified (principal); E78.5 Hyperlipidemia, unspecified; E11.65 Type 2 diabetes mellitus with hyperglycemia
CPT/HCPCS: 36415; 80053; 80061; 82043; 82306; 83036; 83721

== ENCOUNTER 2022-06-24 10:39 | Outpatient (REF) | payer MEDICARE, SELFPAY ==
--- NOTE | 2022-06-24 11:02 | P.BOP_ITS ---
Brief Operative Note Date of Service: 06/24/22 Pre-op diagnosis: Multinodular Thyroid Procedure: EXAMINATION: US THYROID CLINICAL INFORMATION: Multinodular Thyroid COMPARISON: Prior TECHNIQUE: Linear transducer ball-scale and color Doppler examination with attention to the region of the thyroid. FINDINGS: SIZE: Measurements of the thyroid lobes and nodules are given in sagittal, anteroposterior and transverse dimensions respectively. Right Thyroid Lobe: 4.5 x 1.5 x 2.1 cm, volume 7.4 mL. Parenchyma: The gland echotexture is homogenous. Left Thyroid Lobe: 4.3 x 1.6 x 2.0 cm, volume 7.2 mL. Parenchyma: The gland echotexture is homogenous. Isthmus: 0.3 cm in maximum AP dimension. RIGHT THYROID LOBE: There are 2 nodules. 1. Right Mid pole: There is a 0.8 x 0.9 x 0.5 cm predominantly hypoechoic nodule with regular margins and no microcalcifications. 2. Right Mid pole: There is a 0.9 x 0.0.9 x 0.6 cm predominantly hypoechoic nodule with regular margins and no microcalcifications. LEFT THYROID LOBE: There is 1 nodule. 1. Left mid pole: There is a 2.0 x 2.0 x 1.7 cm predominantly solid hypoechoic nodule with regular margins, no microcalcifications. NODES: No lymphadenopathy is seen in the tissue surrounding the thyroid gland. Surgeon: Leigha Kuhn, DO Was an Control Panel Tester used for this Procedure?: No Estimated blood loss (mL): 0
== END 2022-06-24 10:40 | disposition home or self-care (01) ==
LOC: HO.US 10:39
PROVIDERS: PCP Internal Medicine; Visit Provider Internal Medicine
DX: E04.2 Nontoxic multinodular goiter (principal); E11.9 Type 2 diabetes mellitus without complications
CPT/HCPCS: 76536; 99211

== ENCOUNTER → 2022-07-07 12:52 | Outpatient (BNVA) | payer MEDICARE, SELFPAY | PROVIDERS: PCP Internal Medicine; Visit Provider Internal Medicine | DX: E11.9 Type 2 diabetes mellitus without complications (principal); E04.2 Nontoxic multinodular goiter; E78.5 Hyperlipidemia, unspecified; I10 Essential (primary) hypertension | CPT/HCPCS: 82947; 99212 ==

== ENCOUNTER 2022-09-04 09:00 | Outpatient (REF) | payer MEDICARE, SELFPAY ==
[2022-09-04 11:34] LABS: Alanine Aminotransferase 26 U/L (0-31); Albumin Level 4.2 g/dL (3.5-5.0); Alkaline Phosphatase 88 U/L (39-117); Anion Gap 15 (12-20); Aspartate Amino Transferase 23 U/L (5-31); Bilirubin Total 0.4 mg/dL (0.0-1.0); Blood Urea Nitrogen 12 mg/dL (9-16); Calcium 9.4 mg/dL (8.4-10.2); Carbon Dioxide 24 mmol/L (22-29); Chloride 106 mmol/L (96-108); Cholesterol 156 mg/dL; Estimated Glomerular Filt Rate > 60; Glucose Random 137 mg/dL (60-115); HDL Cholesterol 56 mg/dL; LDL Cholesterol Calculated 74 mg/dl; Potassium 4.6 mmol/L (3.3-5.1); Sodium 140 mmol/L (135-145); Total Protein 6.6 g/dL (6.5-8.0); Triglycerides 132 mg/dL
[2022-09-04 11:36] LABS: Estimated Average Glucose 140 mg/dL; Hemoglobin A1c % 6.5 %
[2022-09-04 11:53] LABS: Free T4 (Free Thyroxine) 0.97 ng/dL (0.71-1.85); Thyroid Stimulating Hormone 1.03 uIU/mL (0.32-4.0)
[2022-09-06 16:38] LABS: LDL Cholesterol Direct 67 mg/dL (<100)
== END 2022-09-04 09:01 | disposition home or self-care (01) ==
LOC: HO.HMGCLDS 09:00
PROVIDERS: Absent Provider Internal Medicine; PCP Internal Medicine; Visit Provider Internal Medicine
DX: E11.9 Type 2 diabetes mellitus without complications (principal); E04.2 Nontoxic multinodular goiter
CPT/HCPCS: 36415; 80053; 80061; 83036; 83721; 84439; 84443

== ENCOUNTER → 2022-10-06 12:46 | Outpatient (BNVA) | payer MEDICARE, SELFPAY | PROVIDERS: PCP Internal Medicine; Visit Provider Internal Medicine | DX: E11.65 Type 2 diabetes mellitus with hyperglycemia (principal); E78.5 Hyperlipidemia, unspecified; E04.2 Nontoxic multinodular goiter; I10 Essential (primary) hypertension; Z79.4 Long term (current) use of insulin; Z79.84 Long term (current) use of oral hypoglycemic drugs | CPT/HCPCS: 82947; 99212 ==

== ENCOUNTER 2022-12-15 12:45 | Outpatient (REF) | payer MEDICARE, SELFPAY | END 2022-12-15 12:46 | disposition home or self-care (01) | LOC: HO.HMGCX 12:45 | PROVIDERS: PCP Internal Medicine; Visit Provider Internal Medicine | DX: M54.50 Low back pain, unspecified (principal) | CPT/HCPCS: 72100 ==

== ENCOUNTER 2022-12-30 08:48 | Outpatient (REF) | payer MEDICARE, SELFPAY ==
[2022-12-30 13:55] LABS: Creatinine Urine 182.42 mg/dL
[2022-12-30 14:18] LABS: Estimated Average Glucose 137 mg/dL; Hemoglobin A1c % 6.4 %
[2022-12-30 14:20] LABS: Alanine Aminotransferase 21 U/L (0-31); Albumin Level 4.2 g/dL (3.5-5.0); Alkaline Phosphatase 76 U/L (39-117); Anion Gap 15 (12-20); Aspartate Amino Transferase 19 U/L (5-31); Bilirubin Total 0.2 mg/dL (0.0-1.0); Blood Urea Nitrogen 19 mg/dL (9-16); Calcium 10.3 mg/dL (8.4-10.2); Carbon Dioxide 23 mmol/L (22-29); Chloride 106 mmol/L (96-108); Cholesterol 156 mg/dL; Estimated Glomerular Filt Rate > 60; Glucose Fasting 148 mg/dL (60-99); Glucose Random 148 mg/dL (60-115); HDL Cholesterol 53 mg/dL; LDL Cholesterol Calculated 70 mg/dl; Potassium 4.3 mmol/L (3.3-5.1); Sodium 140 mmol/L (135-145); Thyroid Stimulating Hormone 1.01 uIU/mL (0.32-4.0); Total Protein 7.2 g/dL (6.5-8.0); Triglycerides 169 mg/dL
== END 2022-12-30 08:49 | disposition home or self-care (01) ==
LOC: HO.HMGCLDS 08:48
PROVIDERS: Internal Medicine; PCP Internal Medicine; Visit Provider Internal Medicine
DX: E11.9 Type 2 diabetes mellitus without complications (principal); E04.2 Nontoxic multinodular goiter; E78.5 Hyperlipidemia, unspecified
CPT/HCPCS: 36415; 80053; 80061; 82043; 83036; 84439; 84443

== ENCOUNTER 2023-01-03 13:46 | Outpatient (AMB) | payer MEDICARE, SELFPAY ==
--- NOTE | 2023-01-03 13:48 | MHC.PC.OV ---
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 Accompanied by: Self / Same As Patient Allergies Iodinated Contrast Media [IV CONTRAST] Allergy (Severe, Verified 01/03/23 14:05) ANAPHYLAXIS morphine [MORPHINE] Allergy (Severe, Verified 01/03/23 14:05) CARDIAC ARREST Sulfa (Sulfonamide Antibiotics) [SULFA(SULFONAMIDE ANTIBIOTICS)] Allergy (Severe, Verified 01/03/23 14:05) WASNT ABLE TO SEE, right eye blindness adhesive tape Allergy (Intermediate, Verified 01/03/23 14:05) BLISTERS amoxicillin [Augmentin] Allergy (Intermediate, Verified 01/03/23 14:05) hives ciprofloxacin [Cipro] Allergy (Intermediate, Verified 01/03/23 14:05) hives clavulanic acid [Augmentin] Allergy (Intermediate, Verified 01/03/23 14:05) hives erythromycin base [Erythromycin Base] Allergy (Intermediate, Verified 01/03/23 14:05) HIVES iodine [IODINE] Allergy (Intermediate, Verified 01/03/23 14:05) BLISTERS levofloxacin [From LEVAQUIN] Allergy (Intermediate, Verified 01/03/23 14:05) RASH lobster Allergy (Intermediate, Uncoded 01/03/23 14:05) hives pork Allergy (Intermediate, Uncoded 01/03/23 14:05) hives Medication List - Last Reconciled 01/03/23 by Taylor Powers MD atorvastatin 40 mg PO BEDTIME 90 days blood sugar diagnostic (OneTouch Verio test strips) Use 1 test strips three times a day blood-glucose meter (OneTouch Verio Flex Meter) As directed 3x/day cyclobenzaprine 10 mg PO BEDTIME PRN 10 days fenofibrate 54 mg PO DAILY 90 days fluconazole 150 mg PO Q3D 2 doses gabapentin 100 mg PO BID 90 days hydrocodone-acetaminophen 7.5-325 mg 1 tab PO Q6H PRN 30 days insulin NPH and regular human 100 unit/mL (70-30) (Novolin 70-30 FlexPen U-100 Insulin) 20 units subcut BID lisinopril 2.5 mg PO DAILY 90 days metformin 1,000 mg PO BID 90 days ondansetron 8 mg PO Q8H PRN 30 days pantoprazole 40 mg PO DAILY 90 days pen needle, diabetic (1st Tier Unifine Pentips) Use 1 pen needle twice a day pen needle, diabetic (Easy Comfort Pen [place]) Use 1 once a day [pen needles, diabetic 31 G x 6 mm As directed] semaglutide (Ozempic) 1 mg (0.75 mL) subcut QWEEK 90 days Tobacco use date assessed: 09/09/22 Dental Screening Dental Screen Date: 01/03/23 Did you have a dental visit in the last 12 months?: Yes Did you have a dental problem in the last 6 months where you did not have access to dental care?: No Was dental information given to patient?: Patient has dentist HPI HPI Comments History of Present Illness Details This is a 62-year-old female with diabetes mellitus type 2 on long-term current use of insulin, hypertension, mixed hyperlipidemia and morbid obesity that comes today for follow-up on her conditions. A1c within goal. Blood pressure stable. LDL within goal. She is obese with a BMI of 49.5 and has intentionally lost weight with diet. Denies any chest pain or shortness of breath. 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 Surgical History History of carpal tunnel release History of cholecystectomy History of esophagogastroduodenoscopy (EGD) History of lumbar fusion History of lumbar laminectomy History of total abdominal hysterectomy and bilateral salpingo-oophorectomy History of tubal ligation Hx of colonoscopy Hx of cystoscopy Status post fine needle aspiration Family History Father Melanoma Hypercholesteremia Substance use disorder Mother Diabetes Hypertension Bladder cancer Maternal Grandmother Cancer Family/Other FH: mental illness Social History Household Members: Spouse Housing: House Alcohol intake: never Patient Tobacco Use Status: Former Tobacco user Quit Date: 29 years ago Tobacco use type: Cigarette Years Smoked: 30 years e-Cigarette/Vaping Use: Never Used Second Hand Smoke Exposure: No service: No Current occupational status: disabled Cognitive needs: No Hearing needs: No Vision needs: Yes Questionnaire Thrive Questionnaire Date Thrive assessed: 09/09/22 MAHTEW-7 AMB Questionnaire MATHEW-7 Date MATHEW - 7 assessed: 09/09/22 Source: Developed by Drs. Cabrera Mccloud, Leilani Flanagan, Per Garcia and colleagues, with an educational charline from [employer]. Review of Systems Const All systems reviewed & are unremarkable except as noted in HPI and below Eyes Reports no additional complaints, Denies change in vision and Denies other visual disturbances Card Denies chest pain at rest, Denies chest pain with activity, Denies edema, Denies irregular heart rhythm, Denies claudication, Denies dyspnea, Denies dyspnea on exertion, Denies orthopnea, Denies paroxysmal nocturnal dyspnea and Denies slow heart rate Resp Denies cough, Denies dyspnea and Denies dyspnea on exertion GI Denies abdominal pain, Denies change in bowel habits, Denies excessive flatus, Denies nausea and Denies vomiting Denies urinary incontinence, Denies urinary hesitancy and Denies urinary urgency Musc Denies abnormal gait, Denies atrophy, Denies deformity and Denies limited range of motion Skin/Breast Denies bleeding lesions, Denies changing lesions and Denies rash Neuro Denies abnormal gait and Denies lack of coordination Physical exam (Primary Care) Vital Signs: Last Vital Signs BP 136/80 01/03/23 13:49 BMI result Body Mass Index 49.5 Tobacco/Smoking Status: Tobacco use Status Tobacco use date assessed 09/09/22 01/03/23 13:58 Patient Tobacco Use Status Former Tobacco user 01/03/23 13:58 Tobacco use type Cigarette 01/03/23 13:58 e-Cigarette/Vaping Use Never Used 01/03/23 13:58 Thrive Assessment: Date of Thrive Assessment Date Thrive assessed 09/09/22 01/03/23 13:58 Eyes General: appearance normal, both eyes and all related structures Eyelids: Yes eyelids normal Conjunctivae: conjunctivae normal Neck Neck: Yes normal visual inspection and Yes supple Resp Effort & Inspection: normal respiratory effort Auscultation: clear to auscultation bilaterally Cardio Jugular venous distension: no JVD Rate: regular rate Rhythm: regular rhythm Heart sounds: S1 normal heart sound present and S2 normal heart sound present Extrem General: Yes full ROM Assessment and Plan Assessment & Plan (1) T2DM (type 2 diabetes mellitus): Code(s): E11.9 - Type 2 diabetes mellitus without complications Plan: Continue metformin, Ozempic and insulin. A1c goal is equal or less than 7%. (2) Morbid obesity with BMI of 45.0-49.9, adult: Code(s): E66.01 - Morbid (severe) obesity due to excess calories; Z68.42 - Body mass index [BMI] 45.0-49.9, adult Plan: Continue diet. To exercise as tolerated. BMI goal is less than 30. (3) Essential hypertension: Code(s): I10 - Essential (primary) hypertension Plan: Continue lisinopril. Blood pressure goal is equal or less than 130/80. (4) Mixed hyperlipidemia: Code(s): E78.2 - Mixed hyperlipidemia Plan: Continue statins and fibrates. LDL goal should be less than 70. Orders: Orders Lipid Panel 4 Months E78.5 - Hyperlipidemia, unspecified Microalbumin, Random (w Creat) 4 Months E11.9 - Type 2 diabetes mellitus without complications Comprehensive [place]. Panel Fast 4 Months E11.9 - Type 2 diabetes mellitus without complications Medications: New [scooter] As directed 1 ea 0RF M51.36 - Other intervertebral disc degeneration, lumbar region Coding Level of Care Code Est Pt Level 4 (64570) Diagnoses T2DM (type 2 diabetes mellitus) E11.9 Morbid obesity with BMI of 45.0-49.9, adult E66.01; Z68.42 Essential hypertension I10 Mixed hyperlipidemia E78.2 Time Spent (min) 23
[2023-01-03 13:49] VITALS: BP 136/80; BMI 49.5
== END 2023-01-03 14:19 | disposition home or self-care (01) ==
PROVIDERS: PCP Internal Medicine; Visit Provider Internal Medicine
DX: E11.9 Type 2 diabetes mellitus without complications (principal); E66.01 Morbid (severe) obesity due to excess calories; Z68.42 Body mass index [BMI] 45.0-49.9, adult; I10 Essential (primary) hypertension; E78.2 Mixed hyperlipidemia
CPT/HCPCS: 99214

== ENCOUNTER 2023-01-07 13:14 | Emergency (ER) | payer MEDICARE, SELFPAY ==
[2023-01-07 13:21] VITALS: BP 187/77; PULSE 108; RESP 20; TEMP 36.4; O2SAT 97; BMI 43.9
--- NOTE | 2023-01-07 13:21 | ED.GENADULT ---
HPI - General Adult General Chief complaint: Animal Bite Stated complaint: Dog Bite 01/07/23 Time Seen by Provider: 01/07/23 13:42 Source: patient Mode of arrival: ambulatory Limitations: no limitations History of Present Illness HPI narrative: Patient is a 62 year old assigned female at with a history of DM presenting to the emergency department today with a dog bite to her left hand. Patient states that she was playing ball with her 2 dogs when her bigger dog went for the ball in her hand. Patient states that the dogs are up to date on shots. Patient states that she has a significant amount of allergies including iodine / betadine and Augmentin. Patient denies any dizziness, lightheadedness, abdominal pain, nausea, vomiting, fever, chills, blurry vision, double vision, loss of vision, chest pain, difficulty breathing, shortness of breath, back pain, night sweats, pain with urination, increased urinary frequency, increased urinary urgency, blood in her urine or stool, syncope or a near syncopal episode, bowel incontinence, bladder incontinence, bowel retention, bladder retention, or any other complaints at this time. Onset (ago): minute(s) Location: left and upper extremity Radiation: non-radiation Severity: mild Severity scale (1-10): 4 Quality: aching and dull Pain Consistency: constant Relieving factors: none Exacerbating factors: none Associated symptoms: denies other symptoms Treatments prior to arrival: none Related Data Home Medications Medication Instructions Recorded Confirmed insulin NPH-regular 70-30 U-100 20 unit subcut BID 10/06/22 01/03/23 insulin 100 unit/mL subcutaneous pen (Novolin 70-30 FlexPen U-100 Insulin) Previous Rx's Medication Instructions Recorded pen needle, diabetic 31 gauge x #200 ea 03/08/2210/26 (1st Tier Unifine Pentips) pen needle, diabetic 31 gauge x #50 ea 03/09/2208/26 (Easy Comfort Pen [place]) pen needles, diabetic 31 G x 6 mm #90 ea 03/10/22 blood-glucose meter (OneTouch #1 ea 05/04/22 Verio Flex Meter) cyclobenzaprine 10 mg tablet 10 mg PO BEDTIME PRN muscle spasm 06/07/22 10 days #10 tabs atorvastatin 40 mg tablet 40 mg PO BEDTIME 90 days #90 tabs 02/15/23 blood sugar diagnostic (OneTouch #100 ea 08/16/22 Verio test strips) gabapentin 100 mg capsule 100 mg PO BID 90 days #180 caps 09/09/22 ondansetron 8 mg disintegrating 8 mg PO Q8H PRN nausea and 09/09/22 tablet vomiting 30 days #14 tabs fluconazole 150 mg tablet 150 mg PO Q3D 2 doses #2 tabs 10/10/22 metformin 1,000 mg tablet 1,000 mg PO BID 90 days #180 tabs 12/08/22 pantoprazole 40 mg tablet,delayed 40 mg PO DAILY 90 days #90 tabs 12/08/22 release lisinopril 2.5 mg tablet 2.5 mg PO DAILY 90 days #90 tabs 12/09/22 hydrocodone 7.5 mg-acetaminophen 1 tab PO Q6H PRN pain 30 days #120 12/20/22 325 mg tablet tabs semaglutide 1 mg/dose (4 mg/3 mL) 1 mg (0.75 mL) subcut QWEEK 90 12/29/22 subcutaneous pen injector (Ozempic) days #9.75 mL fenofibrate 54 mg tablet 54 mg PO DAILY 90 days #90 tabs 12/31/22 scooter #1 ea 01/03/23 clindamycin HCl 150 mg capsule 450 mg PO TID 7 days #63 caps 01/07/23 doxycycline hyclate 100 mg tablet 100 mg PO BID 7 days #14 tabs 01/07/23 Allergies Allergy/AdvReac Type Severity Reaction Status Date / Time Iodinated Contrast Media Allergy Severe ANAPHYLAXIS Verified 01/03/23 14:05 [IV CONTRAST] morphine [MORPHINE] Allergy Severe CARDIAC Verified 01/03/23 14:05 ARREST Sulfa (Sulfonamide Allergy Severe WASNT ABLE Verified 01/03/23 14:05 Antibiotics) TO SEE, [SULFA(SULFONAMIDE right eye ANTIBIOTICS)] blindness adhesive tape Allergy Intermediate BLISTERS Verified 01/03/23 14:05 amoxicillin [Augmentin] Allergy Intermediate hives Verified 01/03/23 14:05 ciprofloxacin [Cipro] Allergy Intermediate hives Verified 01/03/23 14:05 clavulanic acid [Augmentin] Allergy Intermediate hives Verified 01/03/23 14:05 erythromycin base Allergy Intermediate HIVES Verified 01/03/23 14:05 [Erythromycin Base] iodine [IODINE] Allergy Intermediate BLISTERS Verified 01/03/23 14:05 levofloxacin [From LEVAQUIN] Allergy Intermediate RASH Verified 01/03/23 14:05 lobster Allergy Intermediate hives Uncoded 01/03/23 14:05 pork Allergy Intermediate hives Uncoded 01/03/23 14:05 Review of Systems Constitutional: Constitutional: Reports no additional constitutional complaints, Denies chills, Denies fever(s) and Denies night sweats Eyes: Eyes: Reports no additional eye complaints, Denies blurry vision, Denies change in vision, Denies diplopia, Denies eye discharge, Denies loss of vision and Denies eye pain ENT: Denies dizziness Cardiovascular: Cardiovascular: Reports no additional cardiovascular complaints, Denies chest pain, Denies lightheadedness, Denies Loss of Consciousness and Denies dyspnea Respiratory: Respiratory: Reports no additional respiratory complaints and Denies dyspnea Gastrointestinal: Gastrointestinal: Reports no additional gastrointestinal complaints, Denies abdominal pain, Denies melena, Denies hematochezia, Denies change in bowel habits and Denies change in stool character Genitourinary: Genitourinary: Denies hematuria, Denies urinary frequency, Denies dysuria, Denies urinary incontinence, Denies urinary hesitancy and Denies urinary urgency Musculoskeletal: Musculoskeletal: Reports no additional musculoskeletal complaints, Denies numbness and Denies tingling Comments: left hand laceration Neurologic: Denies dizziness, Denies loss of vision, Denies numbness and Denies tingling Psychiatric: Psychiatric: Reports no additional psychiatric complaints Endocrine: Endocrine: Reports no additional endocrine complaints Hematologic/Lymphatic: Hematologic/Lymphatic: Reports no additional hematologic/lymphatic complaints Allergic/Immunologic: Allergic/Immunologic: Reports no additional allergic/immunologic complaints [facility] Past Medical History Attestation statement: The following information was validated with the patient. Source: old records reviewed and nursing notes reviewed Medical History Anxiety Bilateral knee pain Chronic back pain Diabetes mellitus Diabetes type 2, uncontrolled Encounter for screening colonoscopy Essential hypertension Frequent UTI GERD (gastroesophageal reflux disease) Goiter HLD (hyperlipidemia) HTN (hypertension) Lumbar degenerative disc disease Lumbar pain Mixed hyperlipidemia Morbid obesity Morbid obesity with BMI of 45.0-49.9, adult Multinodular thyroid Multinodular thyroid Obesity due to excess calories Right knee pain Right shoulder pain Sinusitis Super-super obese T2DM (type 2 diabetes mellitus) 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 Surgical History History of carpal tunnel release History of cholecystectomy History of esophagogastroduodenoscopy (EGD) History of lumbar fusion History of lumbar laminectomy History of total abdominal hysterectomy and bilateral salpingo-oophorectomy History of tubal ligation Hx of colonoscopy Hx of cystoscopy Status post fine needle aspiration Family History Family History Father Melanoma Hypercholesteremia Substance use disorder Mother Diabetes Hypertension Bladder cancer Maternal Grandmother Cancer Family/Other FH: mental illness Social History Social History Household Members: Spouse Housing: House Alcohol intake: never Patient Tobacco Use Status: Former Tobacco user Quit Date: 29 years ago Tobacco use type: Cigarette Years Smoked: 30 years e-Cigarette/Vaping Use: Never Used Second Hand Smoke Exposure: No Advance Directives: No Advance Directives Information Provided: No service: No Current occupational status: disabled Cognitive needs: No Hearing needs: No Vision needs: Yes Physical Exam ED Vital Signs: Vital Signs - 24 hr 01/07/23 13:21 Temperature 97.6 F Pulse Rate 108 H Respiratory Rate 20 Blood Pressure 187/77 H Pulse Oximetry 97 Oxygen Delivery Method Room Air BMI result Body Mass Index 43.9 Const General: cooperative, no acute distress, alert and awake Nutritional Appearance: well nourished Orientation/consciousness: patient oriented x3 Limitations: no limitations [facility] Head: Yes normal to inspection and Yes atraumatic Ears: hearing grossly normal bilaterally and external ears normal General nose exam: Normal external nose present, no nasal discharge noted and no epistaxis Face and sinus: Yes normal facial exam, No abrasion and No laceration Mouth: Normal oral and palatal mucosa present, no drooling and no muffled voice Eyes General: appearance normal, both eyes and all related structures Periorbital: periorbital findings normal Eyelids: Yes eyelids normal Conjunctivae: conjunctivae normal Pupils: Equal, round and reactive pupils present EOM: EOMs intact bilaterally Neck Neck: Yes normal visual inspection, Yes full ROM and Yes no lymphadenopathy Chest Chest palpation & inspection: normal inspection of the chest Resp Effort & Inspection: normal respiratory effort and able to speak in complete sentences GI Inspection: Yes normal to inspection Neuro General: patient oriented x3 and moves all extremities Cranial nerves: Yes Equal, round and reactive pupils present Cognition (Neuro): normal cognition Motor exam (neuro): 5/5 motor strength present throughout Sensory Exam: Normal double simultaneous stimulation for sensation Coordination: [id number] test normal Extrem General: Yes full ROM and Yes capillary refill normal Hand/finger images: 1. 3cm laceration, mild gaping, no active bleeding, full ROM of the left hand Psych Appearance: grossly normal Mental Status: mental status grossly normal Affect: normal affect Attitude: cooperative Thought process: Normal thought process present Thought content: Normal thought content present Insight: Good insight present (Psych) Course Course Course Narrative: This is a rapid medical exam: Additional HPI, ROS, PE not included below will be deferred to primary provider. Patient is a 62-year-old right hand dominant female with dog bite to left hand. Was bit while playing ball with her dog who is UTD on shots. She went to grab the ball at the same as the dog and accidentally got bit. Unsure last tetanus but states it was here. Full ROM to all fingers. Medications Administered Discontinued Medications Generic Name Dose Route Start Last Admin Trade Name Freq PRN Reason Stop Dose Admin Diphtheria/Tetanus/Acell Pertussis 0.5 ml 01/07/23 14:52 01/07/23 14:59 Diphth,Pertus(Acell),Tet Adult 0.5 Ml Syringe IM 01/07/23 14:53 0.5 ml .ONCE ONE Administration Procedures Laceration Laceration 1: Site: hand Side (If applicable): left Size (cm): 3 Description: linear Depth: simple, single layer Local Anesthetic: lidocaine 1% Amount of anesthesia used (mL): 5 Pre-repair: wound explored, irrigated extensively and deep structures intact Skin layer closed with: other (prolene) Size (cm): 6-0 Number of sutures: 3 Technique: simple, interrupted Medical Decision Making Medical Decision Making MDM Narrative: Patient is a 62 year old assigned female at with a history of DM presenting to the emergency department today with a dog bite to her left hand. Patient's physical exam was as noted in the physical exam portion of this chart. I explained my physical exam findings to the patient. I answered all questions asked by the patient. Patient was brought up to date on her tetanus shot. Patient's laceration was repaired with 3 sutures to loosely approximately the wound. Patient's PMS was intact prior to and after laceration repair. I stressed the importance of the patient taking her medication as prescribed. I stressed the importance of the patient following up with her primary care provider and the wound center. I stressed the importance of the patient having her sutures removed in 7-10 days, performing daily wound checks / dressing changes, and NOT soaking the affected area. I stressed the importance of the patient returning to the emergency department immediately if her symptoms were to worsen or if she were to develop any dizziness, shortness of breath, difficulty breathing, chest pain, blurry vision, loss of vision, nausea, vomiting, abdominal pain, fever, chills, back pain, or any other complaints. Patient verbalized agreement and understanding with this treatment plan and discharge. Differential Diagnosis Differential Diagnoses: The differential diagnosis associated with the presentation includes Dog bite Hand laceration Prescription Management I considered prescription management with: Antibiotic (patient prescribed an antibiotic) Chronic Conditions Patient?s care impacted by: Diabetes Discharge Plan Discharge Clinical Impression: Dog bite Patient Disposition: Home, Self-Care Instructions: Animal Bite (ED), Care For Your Stitches (DC) Additional Instructions: Follow up with your primary care provider and the wound center. Take your antibiotic as prescribed. Return to the emergency department immediately if your symptoms worsen or if you develop any dizziness, shortness of breath, difficulty breathing, chest pain, blurry vision, loss of vision, nausea, vomiting, abdominal pain, fever, chills, back pain, or any other complaints. Prescriptions: New doxycycline hyclate 100 mg tablet 100 mg PO BID 7 Days Qty: 14 0RF clindamycin HCl 150 mg capsule 450 mg PO TID 7 Days Qty: 63 0RF No Action (DME) pen needle, diabetic [1st Tier Unifine Pentips] 31 gauge x 5/16 needle See Rx Instructions .Route Qty: 200 6RF Rx Instructions: Use 1 pen needle twice a day (DME) pen needle, diabetic [Easy Comfort Pen [place]] 31 gauge x 3/16 needle See Rx Instructions .Route Qty: 50 6RF Rx Instructions: Use 1 once a day (DME) pen needles, diabetic 31 G x 6 mm 31 x 6 See Rx Instructions .Route .MEDSUPPLY Qty: 90 3RF Rx Instructions: As directed (DME) blood-glucose meter [OneTouch Verio Flex meter] [facility] [place] Rx Instructions .Route Qty: 1 0RF Rx Instructions: As directed 3x/day cyclobenzaprine 10 mg tablet 10 mg PO BEDTIME PRN (Reason: muscle spasm) 10 Days Qty: 10 0RF atorvastatin 40 mg tablet 40 mg PO BEDTIME 90 Days Qty: 90 3RF (DME) OneTouch Verio test strips Strip See Rx Instructions .Route Qty: 100 11RF Rx Instructions: Use 1 test strips three times a day fluconazole 150 mg tablet 150 mg PO Q3D Qty: 2 3RF metformin 1,000 mg tablet 1,000 mg PO BID 90 Days Qty: 180 1RF pantoprazole 40 mg tablet,delayed release (DR/EC) 40 mg PO DAILY 90 Days Qty: 90 3RF lisinopril 2.5 mg tablet 2.5 mg PO DAILY 90 Days Qty: 90 1RF hydrocodone-acetaminophen 7.5-325 mg tablet 1 tab PO Q6H PRN (Reason: pain) 30 Days Qty: 120 0RF Ozempic 1 mg/dose (4 mg/3 mL) pen injector 1 mg subcut QWEEK 90 Days Qty: 9.75 11RF fenofibrate 54 mg tablet 54 mg PO DAILY 90 Days Qty: 90 1RF gabapentin 100 mg capsule 100 mg PO BID 90 Days Qty: 180 1RF ondansetron 8 mg tablet,disintegrating 8 mg PO Q8H PRN (Reason: nausea and vomiting) 30 Days Qty: 14 3RF (DME) scooter See Rx Instructions .Route .MEDSUPPLY Qty: 1 0RF Rx Instructions: As directed Novolin 70-30 FlexPen U-100 100 unit/mL (70-30) insulin pen 20 unit subcut BID Referrals: [facility] [Provider Group] (Call to establish and follow up with the wound center. ) Taylor Bess MD [Primary Care Provider] - Interventions: ED Discharge Assessment Last Done: 01/07/23 15:07 Discharge Date/Time: 01/07/23 15:07 Print Language: Mal[place]ian
[2023-01-07] MEDS: Diphth,Pertus(ACell),Tet Adult 0.5 ML SYRINGE IM (14:59)
== END 2023-01-07 15:07 | disposition home or self-care (01) ==
PROVIDERS: Emergency Provider Emergency Medicine Emergency Medical Services; PCP Internal Medicine
DX: S61.452A Open bite of left hand, initial encounter (principal); S60.512A Abrasion of left hand, initial encounter; W54.0XXA Bitten by dog, initial encounter; Y93.9 Activity, unspecified; Y92.9 Unspecified place or not applicable; Y99.9 Unspecified external cause status; Z87.891 Personal history of nicotine dependence; Z23 Encounter for immunization
CPT/HCPCS: 12002; 90471; 90715; 99282; 99284

== ENCOUNTER 2023-01-13 14:38 | Outpatient (AMB) | payer MEDICARE, SELFPAY ==
[2023-01-13 14:49] VITALS: BP 132/90; PULSE 92; O2SAT 100
--- NOTE | 2023-01-13 14:49 | A.OFFPC_ITS ---
Vital Signs 01/13/23 14:49 Height 5 ft BMI Reason not done Patient refused/unable BP 132/90 H Blood Pressure Location Lt brachial Position Sitting Pulse 92 Pulse Source Pulse Oximeter Temp Source Skin Pulse Oximetry (%) 100 Oxygen Delivery Method Room Air Intake Visit Reasons: ER follow up Dog bite/stitches Log Operations Coordinator Required: No Allergies Iodinated Contrast Media [IV CONTRAST] Allergy (Severe, Verified 01/13/23 15:05) ANAPHYLAXIS morphine [MORPHINE] Allergy (Severe, Verified 01/13/23 15:05) CARDIAC ARREST Sulfa (Sulfonamide Antibiotics) [SULFA(SULFONAMIDE ANTIBIOTICS)] Allergy (Severe, Verified 01/13/23 15:05) WASNT ABLE TO SEE, right eye blindness adhesive tape Allergy (Intermediate, Verified 01/13/23 15:05) BLISTERS amoxicillin [Augmentin] Allergy (Intermediate, Verified 01/13/23 15:05) hives ciprofloxacin [Cipro] Allergy (Intermediate, Verified 01/13/23 15:05) hives clavulanic acid [Augmentin] Allergy (Intermediate, Verified 01/13/23 15:05) hives erythromycin base [Erythromycin Base] Allergy (Intermediate, Verified 01/13/23 15:05) HIVES iodine [IODINE] Allergy (Intermediate, Verified 01/13/23 15:05) BLISTERS levofloxacin [From LEVAQUIN] Allergy (Intermediate, Verified 01/13/23 15:05) RASH lobster Allergy (Intermediate, Uncoded 01/13/23 15:05) hives pork Allergy (Intermediate, Uncoded 01/13/23 15:05) hives Medication List - Last Reconciled 01/13/23 by ROBERT Ravi atorvastatin 40 mg PO BEDTIME 90 days blood sugar diagnostic (OneTouch Verio test strips) Use 1 test strips three times a day blood-glucose meter (OneTouch Verio Flex Meter) As directed 3x/day clindamycin HCl 450 mg (3 x 150 mg) PO TID 7 days cyclobenzaprine 10 mg PO BEDTIME PRN 10 days doxycycline hyclate 100 mg PO BID 7 days fenofibrate 54 mg PO DAILY 90 days fluconazole 150 mg PO Q3D 2 doses gabapentin 100 mg PO BID 90 days hydrocodone-acetaminophen 7.5-325 mg 1 tab PO Q6H PRN 30 days insulin NPH and regular human 100 unit/mL (70-30) (Novolin 70-30 FlexPen U-100 Insulin) 20 units subcut BID lisinopril 2.5 mg PO DAILY 90 days metformin 1,000 mg PO BID 90 days ondansetron 8 mg PO Q8H PRN 30 days pantoprazole 40 mg PO DAILY 90 days pen needle, diabetic (1st Tier Unifine Pentips) Use 1 pen needle twice a day pen needle, diabetic (Easy Comfort Pen [place]) Use 1 once a day [pen needles, diabetic 31 G x 6 mm As directed] [scooter As directed] semaglutide (Ozempic) 1 mg (0.75 mL) subcut QWEEK 90 days Tobacco use date assessed: 01/13/23 Dental Screening Dental Screen Date: 01/13/23 Did you have a dental visit in the last 12 months?: Yes HPI ER follow up Dog bite/stitches HPI Details Patient is a 62-year-old female presents today to follow-up on [facility] visit 01/07/2023 due to dog bite. Patient of Dr. Dorantes. Per ED notes: Patient is a 62 year old assigned female at with a history of DM presenting to the emergency department today with a dog bite to her left hand. Patient's physical exam was as noted in the physical exam portion of this chart. I explained my physical exam findings to the patient. I answered all questions asked by the patient. Patient was brought up to date on her tetanus shot. Patient's laceration was repaired with 3 sutures to loosely approximately the wound. Patient's PMS was intact prior to and after laceration repair. I stressed the importance of the patient taking her medication as prescribed. I stressed the importance of the patient following up with her primary care provider and the wound center. I stressed the importance of the patient having her sutures removed in 7-10 days, performing daily wound checks / dressing changes, and NOT soaking the affected area. I stressed the importance of the patient returning to the emergency department immediately if her symptoms were to worsen or if she were to develop any dizziness, shortness of breath, difficulty breathing, chest pain, blurry vision, loss of vision, nausea, vomiting, abdominal pain, fever, chills, back pain, or any other complaints. Patient verbalized agreement and und erstanding with this treatment plan and discharge. Today, patient reports that she has finished doxycycline and clindamycin. She denies left hand pain, able to move her hand and fingers. No shortness of breath or chest pain. Patient reports applying bacitracin to left hand laceration and covering with rolling gauze. She is here to remove sutures. [facility] Medical History Anxiety Bilateral knee pain Chronic back pain Diabetes mellitus Diabetes type 2, uncontrolled Encounter for screening colonoscopy Essential hypertension Frequent UTI GERD (gastroesophageal reflux disease) Goiter HLD (hyperlipidemia) HTN (hypertension) Lumbar degenerative disc disease Lumbar pain Mixed hyperlipidemia Morbid obesity Morbid obesity with BMI of 45.0-49.9, adult Multinodular thyroid Multinodular thyroid Obesity due to excess calories Right knee pain Right shoulder pain Sinusitis Super-super obese T2DM (type 2 diabetes mellitus) 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 Surgical History History of carpal tunnel release History of cholecystectomy History of esophagogastroduodenoscopy (EGD) History of lumbar fusion History of lumbar laminectomy History of total abdominal hysterectomy and bilateral salpingo-oophorectomy History of tubal ligation Hx of colonoscopy Hx of cystoscopy Status post fine needle aspiration Family History Father Melanoma Hypercholesteremia Substance use disorder Mother Diabetes Hypertension Bladder cancer Maternal Grandmother Cancer Family/Other FH: mental illness Social History Household Members: Spouse Housing: House Alcohol intake: never Patient Tobacco Use Status: Former Tobacco user Quit Date: 29 years ago Tobacco use type: Cigarette Years Smoked: 30 years e-Cigarette/Vaping Use: Never Used Second Hand Smoke Exposure: No service: No Current occupational status: disabled Cognitive needs: No Hearing needs: No Vision needs: Yes Questionnaire Thrive Questionnaire Date Thrive assessed: 09/09/22 AUDIT C Alcohol Use Questionnaire (AUDIT-C) 1. How often do you have a drink containing alcohol?: Never Total Score: 0 Score Reviewed/Action Taken: No MATHEW-7 AMB Questionnaire MATHEW-7 Date MATHEW - 7 assessed: 09/09/22 Source: Developed by Drs. Cabrera Mccloud, Leilani Flanagan, Per Garcia and colleagues, with an educational charline from [employer]. Review of Systems Const Denies body aches, Denies chills, Denies fever(s) and Denies headache(s) Eyes Denies change in vision ENT Denies dizziness, Denies otalgia, Denies headache(s), Denies nasal discharge, Denies sinus pain and Denies sore throat Card Denies chest pain, Denies edema, Denies lightheadedness and Denies dyspnea Resp Denies cough and Denies dyspnea GI Denies abdominal pain Denies dysuria Musc Denies myalgias, Denies arthralgias, Denies numbness and Denies tingling Skin/Breast Reports as per HPI and Denies rash Neuro Denies dizziness, Denies headache(s), Denies numbness and Denies tingling Physical exam (Primary Care) Vital Signs: Last Vital Signs Pulse 92 01/13/23 14:49 BP 132/90 H 01/13/23 14:49 Pulse Ox 100 01/13/23 14:49 Oxygen Delivery Method Room Air 01/13/23 14:49 Tobacco/Smoking Status: Tobacco use Status Tobacco use date assessed 01/13/23 01/13/23 14:54 Patient Tobacco Use Status Former Tobacco user 01/13/23 14:54 Tobacco use type Cigarette 01/13/23 14:54 e-Cigarette/Vaping Use Never Used 01/13/23 14:54 Thrive Assessment: Date of Thrive Assessment Date Thrive assessed 09/09/22 01/13/23 14:54 Const General: cooperative and no acute distress Orientation/consciousness: patient oriented x3 HENMT Head: Yes normocephalic and Yes atraumatic Mouth: oropharynx normal and moist mucous membranes Throat: Yes posterior oropharynx normal Eyes General: appearance normal, both eyes and all related structures Neck Neck: Yes normal visual inspection and Yes full ROM Resp Effort & Inspection: normal respiratory effort and able to speak in complete sentences Auscultation: clear to auscultation bilaterally, no crackles, no rales, no rhonc hi and no wheezes Cardio Rate: regular rate Rhythm: regular rhythm Heart sounds: S1 normal heart sound present and S2 normal heart sound present GI Auscultation: normal bowel sounds Skin General skin exam: no rashes or lesions noted Full body images: 1. Left hand about 3cm laceration, well-approximated, laceration slightly wet- patient reports applying bacitracin, 3 sutures successfully removed, patient tolerated well, mild scabbing noted, no significant erythema Neuro General: patient oriented x3 Gait exam (Neuro): Normal gait present Extrem General: Yes full ROM and No edema Assessment and Plan Assessment & Plan (1) Dog bite: Code(s): W54.0XXA - Bitten by dog, initial encounter Plan: Left hand about 3cm laceration, well-approximated, laceration slightly wet- patient reports applying bacitracin, 3 sutures successfully removed, patient tolerated well, mild scabbing noted, no significant erythema. Keep laceration dry and clean, can cover with gauze for bedtime. During the day can keep laceration open to air. Signs and symptoms reviewed when to notify provider or go to the emergency department. Patient agreed with the plan. Coding Level of Care Code Est Pt Level 3 (50290) Diagnoses Dog bite W54.0XXA
== END 2023-01-13 15:23 | disposition home or self-care (01) ==
PROVIDERS: PCP Internal Medicine; Visit Provider Nurse Practitioner Family
DX: S61.412A Laceration without foreign body of left hand, initial encounter (principal); W54.0XXA Bitten by dog, initial encounter
CPT/HCPCS: 99213

== ENCOUNTER 2023-03-10 09:43 | Outpatient (AMB) | payer MEDICARE, SELFPAY ==
--- NOTE | 2023-03-10 09:49 | MHC.OFFVIS ---
Intake Vital Signs 03/10/23 09:53 Height 5 ft Weight 266 lb 8.622 oz BMI 52.0 BP 130/72 Blood Pressure Location Lt brachial Position Sitting Pulse 89 Pulse Source Pulse Oximeter Intake Visit Reasons: F/U T2DM/, pt confirmed Intake Note: New patient to Dr. Salomon present to follow up on Type 2 Diabetes Mellitus. Previously followed by Dr. Choudhury. Last Diabetic Eye exam: 10/29/22 Last Podiatry Visit: None Random Glucose: 175 mg/dl HgA1C: 6.4% 12/30/2022 Stage Director Required: No Accompanied by: Self / Same As Patient Allergies Iodinated Contrast Media [IV CONTRAST] Allergy (Severe, Verified 03/10/23 09:59) ANAPHYLAXIS morphine [MORPHINE] Allergy (Severe, Verified 03/10/23 09:59) CARDIAC ARREST Sulfa (Sulfonamide Antibiotics) [SULFA(SULFONAMIDE ANTIBIOTICS)] Allergy (Severe, Verified 03/10/23 09:59) WASNT ABLE TO SEE, right eye blindness adhesive tape Allergy (Intermediate, Verified 03/10/23 09:59) BLISTERS amoxicillin [Augmentin] Allergy (Intermediate, Verified 03/10/23 09:59) hives ciprofloxacin [Cipro] Allergy (Intermediate, Verified 03/10/23 09:59) hives clavulanic acid [Augmentin] Allergy (Intermediate, Verified 03/10/23 09:59) hives erythromycin base [Erythromycin Base] Allergy (Intermediate, Verified 03/10/23 09:59) HIVES iodine [IODINE] Allergy (Intermediate, Verified 03/10/23 09:59) BLISTERS levofloxacin [From LEVAQUIN] Allergy (Intermediate, Verified 03/10/23 09:59) RASH lobster Allergy (Intermediate, Uncoded 01/13/23 15:05) hives pork Allergy (Intermediate, Uncoded 01/13/23 15:05) hives HPI HPI Comments History of Present Illness Details 62 YO F with PMHx T2DM and a NTMNG who is seen in F/U for T2DM and a NTMNG. The patient last saw Dr. Choudhury on 10/06/2022 Initially diagnosed with T2DM in 2011. Was initially started on treatment with Metformin. Current regimen Metformin 1000 mg PO BID, Ozempic 1 mg once a week and 70/30 26 units qAM and 24 units qpm. Checks sugars once a day Average sugar: 135 Range: 117-158 Reports low sugars never. Treats lows with juice. Checks sugar after to ensure it is rising. Treats according to rule of 15's. Most recent A1C: 6.4% 12/20/22 . Family history of T2DM in Mother. Has eyes checked yearly, last eye exam 10/29/2022 , denies retinopathy. Denies neuropathy, No Has nephropathy, on Lisinopril 2.5 mg PO daily. UAC 15.6 06/23/2022. Has HLD, on Atorvastatin 40 mg PO daily. Last LDL 67 09/04/2022. Denies CAD. Diet: Does not count carbohydrates. Weight: Stable Has not had diabetes education. 2) Multinodular Thyroid: 03/26/2021 she underwent FNA biopsy of her LLP 1.8 cm thyroid nodule with benign cytology.? Her remaining nodules were all measured to be less than 1 cm at that time, so no additional FNA biopsies were indicated. She had a repeat US completed by me 06/24/2022 with her LMP nodule measuring 2.0 cm. No repeat FNA was indicated. Labs: Laboratory Tests 06/23/22 09/04/22 09/04/22 07:10 09:06 09:06 Sodium 140 Potassium 4.6 Creatinine 0.88 Estimated GFR > 60 Hemoglobin A1c % 6.5 LDL Cholesterol Di rect TSH 1.03 Free T4 0.97 Microalb/Creat Rat io 15.6 09/04/22 09:06 Sodium Potassium Creatinine Estimated GFR Hemoglobin A1c % LDL Cholesterol Di rect 67 TSH Free T4 Microalb/Creat Rat io [facility] Medical History Anxiety Bilateral knee pain Chronic back pain Diabetes mellitus Diabetes type 2, uncontrolled Encounter for screening colonoscopy Essential hypertension Frequent UTI GERD (gastroesophageal reflux disease) Goiter HLD (hyperlipidemia) HTN (hypertension) Lumbar degenerative disc disease Lumbar pain Mixed hyperlipidemia Morbid obesity Morbid obesity with BMI of 45.0-49.9, adult Multinodular thyroid Multinodular thyroid Obesity due to excess calories Right knee pain Right shoulder pain Sinusitis Super-super obese T2DM (type 2 diabetes mellitus) 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 Surgical History History of carpal tunnel release History of cholecystectomy History of esophagogastroduodenoscopy (EGD) History of lumbar fusion History of lumbar laminectomy History of total abdominal hysterectomy and bilateral salpingo-oophorectomy History of tubal ligation Hx of colonoscopy Hx of cystoscopy Status post fine needle aspiration Family History Father Melanoma Hypercholesteremia Substance use disorder Mother Diabetes Hypertension Bladder cancer Maternal Grandmother Cancer Family/Other FH: mental illness Social History Household Members: Spouse Housing: House Alcohol intake: never Patient Tobacco Use Status: Former Tobacco user Quit Date: 29 years ago Tobacco use type: Cigarette Years Smoked: 30 years e-Cigarette/Vaping Use: Never Used Second Hand Smoke Exposure: No service: No Current occupational status: disabled Cognitive needs: No Hearing needs: No Vision needs: Yes Physical Exam Absence of Cushingoid features. Absence of acromegalic features. Neck exam reveals nl size thyroid about 15 gms. No thyroid nodules palpable. No carotid bruits present. Lungs CTA. Heart S1 S2, Reg R/R. No M/R/ G. Skin exam reveals absence of vitiligo or acanthosis nigricans. Abdominal exam reveals Soft NT/ND with NA BS. No organomegaly present. Neck Other: . Extrem Other: Visual exam of foot performed. No ulcerations or open lesions. No onchomycosis, no callouses.Pulses 2 + distally Sensation intact to monofilament exam. Vibratory sensation sensed is intact with 128 Hz tuning fork in the right lower extremity with decrease in left lower extremity Assessment & Plan Assessment & Plan (1) Diabetes type 2, uncontrolled: Code(s): E11.65 - Type 2 diabetes mellitus with hyperglycemia Qualifiers: Glycemic state: with hyperglycemia Qualified Code(s): E11.65 - Type 2 diabetes mellitus with hyperglycemia Plan: This 63-year-old white female with history of type 2 diabetes being treated with metformin, Ozempic and premixed insulin with excellent glycemic control and known microvascular complications namely nephropathy. Plan is to continue the current therapy . At This point, patient returned to the care of her primary care provider and return back to endocrinology should HbA1c deteriorate (2) Multinodular thyroid: Code(s): E04.2 - Nontoxic multinodular goiter Plan: Status post FNA of left lower pole nodule benign cytology. Ultrasounds have been stable in size. At this point, patient returned to care of her primary care provider who could repeat a thyroid ultrasound in about a year's time. If there is any change in the size or characteristics of the nodule, the patient returned back to endocrinology Coding Level of Care Code Est Pt Level 4 (43185) Diagnoses Uncontrolled type 2 diabetes mellitus with hyperglycemia E11.65 Glycemic state: with hyperglycemia Multinodular thyroid E04.2
[2023-03-10 09:53] VITALS: BP 130/72; PULSE 89; BMI 52.0
[2023-03-10 10:10] LABS: Glucose, Whole Blood 175 mg/dL (60-115)
== END 2023-03-10 10:21 | disposition home or self-care (01) ==
PROVIDERS: PCP Internal Medicine; Visit Provider Internal Medicine Endocrinology, Diabetes & Metabolism
DX: E11.65 Type 2 diabetes mellitus with hyperglycemia (principal); E04.2 Nontoxic multinodular goiter
CPT/HCPCS: 99214

== ENCOUNTER → 2023-03-10 09:43 | Outpatient (BNVA) | payer MEDICARE, SELFPAY | PROVIDERS: Visit Provider Internal Medicine Endocrinology, Diabetes & Metabolism | DX: E11.65 Type 2 diabetes mellitus with hyperglycemia (principal); E04.2 Nontoxic multinodular goiter | CPT/HCPCS: 82947; 99212 ==

== ENCOUNTER 2023-03-21 14:05 | Outpatient (REF) | payer MEDICARE, SELFPAY ==
--- NOTE | ~2023-03-21 | XR_ITS ---
EXAMINATION: XR LUMBOSACRAL SPINE CLINICAL INFORMATION: Lumbar degenerative disc disease. COMPARISON: Radiographs dated 12/15/2022. TECHNIQUE: AP and lateral views of the lumbar spine and lateral view of the lumbosacral junction. FINDINGS: There is bony demineralization. Vertebral body heights and alignment are normal. There is mild to moderate disc space narrowing at T10-T11 through T12-L1. There is multi-level moderately severe disc space narrowing extending from L1-L2 through L5-S1. No acute fracture or spondylolisthesis is seen. There is multi-level thoracolumbar spondylosis. There is multi-level lumbar facet arthropathy. An orthopedic screw is again seen applied to the right sacral ala. There are aortoiliac atherosclerotic calcifications. XR/XR lumbar spine 2-3V IMPRESSION: There is multi-level thoracolumbar degenerative disc disease, spondylosis and facet arthropathy. Degenerative disc disease is particularly pronounced extending from L1-L2 through L5-S1, where it is moderately severe.
== END 2023-03-21 14:06 | disposition home or self-care (01) ==
LOC: HO.HMGCX 14:05
PROVIDERS: PCP Internal Medicine; Visit Provider Internal Medicine
DX: M51.36 Other intervertebral disc degeneration, lumbar region (principal)
CPT/HCPCS: 72100

== ENCOUNTER 2023-05-12 12:14 | Outpatient (REF) | payer MEDICARE, SELFPAY ==
--- NOTE | ~2023-05-12 | XR_ITS ---
EXAMINATION: XR HAND, RIGHT CLINICAL INFORMATION: Right hand pain COMPARISON: None available. TECHNIQUE: PA, lateral, and oblique views of the right hand. FINDINGS: Degenerative changes first carpometacarpal joint. Diffuse mild interphalangeal joint space narrowings. No fracture, dislocation or focal soft tissue swelling. XR/XR hand RT 2V IMPRESSION: Degenerative type changes.
== END 2023-05-12 12:15 | disposition home or self-care (01) ==
LOC: HO.HMGCX 12:14
PROVIDERS: PCP Internal Medicine; Visit Provider Internal Medicine
DX: M79.641 Pain in right hand (principal)
CPT/HCPCS: 73120

== ENCOUNTER 2023-05-16 10:46 | Outpatient (AMB) | payer MEDICARE, SELFPAY ==
[2023-05-16 10:55] VITALS: BP 136/70; BMI 50.4
--- NOTE | 2023-05-16 10:55 | MHC.PC.OV ---
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 Required: No Accompanied by: Self / Same As Patient Allergies Iodinated Contrast Media [IV CONTRAST] Allergy (Severe, Verified 05/16/23 11:01) ANAPHYLAXIS morphine [MORPHINE] Allergy (Severe, Verified 05/16/23 11:01) CARDIAC ARREST Sulfa (Sulfonamide Antibiotics) [SULFA(SULFONAMIDE ANTIBIOTICS)] Allergy (Severe, Verified 05/16/23 11:01) WASNT ABLE TO SEE, right eye blindness adhesive tape Allergy (Intermediate, Verified 05/16/23 11:01) BLISTERS amoxicillin [Augmentin] Allergy (Intermediate, Verified 05/16/23 11:01) hives ciprofloxacin [Cipro] Allergy (Intermediate, Verified 05/16/23 11:01) hives clavulanic acid [Augmentin] Allergy (Intermediate, Verified 05/16/23 11:01) hives erythromycin base [Erythromycin Base] Allergy (Intermediate, Verified 05/16/23 11:01) HIVES iodine [IODINE] Allergy (Intermediate, Verified 05/16/23 11:01) BLISTERS levofloxacin [From LEVAQUIN] Allergy (Intermediate, Verified 05/16/23 11:01) RASH lobster Allergy (Intermediate, Uncoded 05/16/23 11:01) hives pork Allergy (Intermediate, Uncoded 05/16/23 11:01) hives Medication List - Last Reconciled 05/16/23 by Taylor Powers MD atorvastatin 40 mg PO BEDTIME 90 days blood sugar diagnostic (OneTouch Verio test strips) Use 1 test strips three times a day blood-glucose meter (OneTouch Verio Flex Meter) As directed 3x/day cyclobenzaprine 10 mg PO BEDTIME PRN 10 days fenofibrate 54 mg PO DAILY 90 days fluconazole 150 mg PO Q3D 2 doses gabapentin 100 mg PO BID 90 days hydrocodone-acetaminophen 7.5-325 mg 1 tab PO Q6H PRN 30 days insulin NPH and regular human 100 unit/mL (70-30) (Novolin 70-30 FlexPen U-100 Insulin) 28 units subcut BID lisinopril 2.5 mg PO DAILY 90 days metformin 1,000 mg PO BID 90 days ondansetron 8 mg PO Q8H PRN 30 days pantoprazole 40 mg PO DAILY 90 days pen needle, diabetic (1st Tier Unifine Pentips) Use 1 pen needle twice a day pen needle, diabetic (Easy Comfort Pen [place]) Use 1 once a day [pen needles, diabetic 31 G x 6 mm As directed] [scooter As directed] semaglutide (Ozempic) 1 mg (0.75 mL) subcut QWEEK 90 days Tobacco use date assessed: 01/13/23 Fall risk assessment: No Falls in past year Last assessed Fall Risk: 05/16/23 Dental Screening Dental Screen Date: 05/16/23 Did you have a dental visit in the last 12 months?: No Did you have a dental problem in the last 6 months where you did not have access to dental care?: No Was dental information given to patient?: Patient has dentist HPI HPI Comments History of Present Illness Details This is a 63-year-old female with diabetes mellitus type 2 on long-term current use of insulin, hypertension, mixed hyperlipidemia and morbid obesity that comes today for follow-up on her conditions. A1c elevated and she said she had a recent cortisone injection. I will still increase insulin to 28 units twice a day. Blood pressure stable. Last LDL was within goal. She is morbidly obese with a BMI of 50.4 and declines weight loss surgery. No chest pain or shortness of breath. Compliant with medications. 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 Diabetes mellitus Essential hypertension Lumbar degenerative disc disease Surgical History History of esophagogastroduodenoscopy (EGD) Hx of colonoscopy Status post fine needle aspiration Hx of cystoscopy History of total abdominal hysterectomy and bilateral salpingo-oophorectomy History of lumbar fusion History of carpal tunnel release History of lumbar laminectomy History of cholecystectomy History of tubal ligation Family History Father Melanoma Hypercholesteremia Substance use disorder Mother Diabetes Hypertension Bladder cancer Maternal Grandmother Cancer Family/Other FH: mental illness Social History Household Members: Spouse Housing: House Alcohol intake: never Patient Tobacco Use Status: Former Tobacco user Quit Date: 29 years ago Tobacco use type: Cigarette Years Smoked: 30 years e-Cigarette/Vaping Use: Never Used Second Hand Smoke Exposure: No service: No Current occupational status: disabled Cognitive needs: No Hearing needs: No Vision needs: Yes Questionnaire Thrive Questionnaire Date Thrive assessed: 09/09/22 MATHEW-7 AMB Questionnaire MATHEW-7 Date MATHEW - 7 assessed: 09/09/22 Source: Developed by Drs. Cabrera Mccloud, Leilani Flanagan, Per Garcia and colleagues, with an educational charline from [employer]. Review of Systems Const All systems reviewed & are unremarkable except as noted in HPI and below Eyes Reports no additional complaints, Denies change in vision and Denies other visual disturbances Card Denies chest pain at rest, Denies chest pain with activity, Denies edema, Denies irregular heart rhythm, Denies claudication, Denies dyspnea, Denies dyspnea on exertion, Denies orthopnea, Denies paroxysmal nocturnal dyspnea and Denies slow heart rate Resp Denies cough, Denies dyspnea and Denies dyspnea on exertion GI Denies abdominal pain, Denies change in bowel habits, Denies excessive flatus, Denies nausea and Denies vomiting Denies urinary incontinence, Denies urinary hesitancy and Denies urinary urgency Musc Denies abnormal gait, Denies atrophy, Denies deformity and Denies limited range of motion Skin/Breast Denies bleeding lesions, Denies changing lesions and Denies rash Neuro Denies abnormal gait and Denies lack of coordination Physical exam (Primary Care) Vital Signs: Last Vital Signs BP 136/70 05/16/23 10:55 BMI result Body Mass Index 50.4 Tobacco/Smoking Status: Tobacco use Status Tobacco use date assessed 01/13/23 05/16/23 11:00 Patient Tobacco Use Status Former Tobacco user 05/16/23 11:00 Tobacco use type Cigarette 05/16/23 11:00 e-Cigarette/Vaping Use Never Used 05/16/23 11:00 Thrive Assessment: Date of Thrive Assessment Date Thrive assessed 09/09/22 05/16/23 11:00 Eyes General: appearance normal, both eyes and all related structures Eyelids: Yes eyelids normal Conjunctivae: conjunctivae normal Neck Neck: Yes normal visual inspection and Yes supple Resp Effort & Inspection: normal respiratory effort Auscultation: clear to auscultation bilaterally Cardio Jugular venous distension: no JVD Rate: regular rate Rhythm: regular rhythm Heart sounds: S1 normal heart sound present and S2 normal heart sound present Extrem General: Yes full ROM Results AMB Hemoglobin A1c AMB Hemoglobin A1c 7.9 % Last Edit by RAEANN Murillo on 05/16/23 11:02 Results Reviewed Results Reviewed: Laboratory Last Values Hgb A1c (Clinic) 7.9 % (4.0-6.0) H 05/16/23 10:52 Assessment and Plan Assessment & Plan (1) Type 2 diabetes mellitus, with long-term current use of insulin: Code(s): E11.9 - Type 2 diabetes mellitus without complications; Z79.4 - half-way (current) use of insulin Qualifiers: Diabetes mellitus complication status: with hyperglycemia Qualified Code(s): E11.65 - Type 2 diabetes mellitus with hyperglycemia; Z79.4 - half-way (current) use of insulin Plan: Increase insulin to 28 units twice a day. A1c goal is equal or less than 7%. (2) Mixed hyperlipidemia: Code(s): E78.2 - Mixed hyperlipidemia Plan: Continue statins and fibrates. LDL goal is equal or less than 70. (3) Essential hypertension: Code(s): I10 - Essential (primary) hypertension Plan: Continue lisinopril. Blood pressure goal is equal or less than 130/80. (4) Morbid obesity with BMI of 50.0-59.9, adult: Code(s): E66.01 - Morbid (severe) obesity due to excess calories; Z68.43 - Body mass index [BMI] 50.0-59.9, adult Plan: Start diet and exercise as tolerated. BMI goal is less than 30 Orders: Orders AMB Hemoglobin A1c Today E11.9 - Type 2 diabetes mellitus without complications Lipid Panel 5 Months E78.5 - Hyperlipidemia, unspecified Comprehensive [place]. Panel Fast 5 Months E11.9 - Type 2 diabetes mellitus without complications Microalbumin, Random (w Creat) 5 Months E11.9 - Type 2 diabetes mellitus without complications Coding Level of Care Code Est Pt Level 4 (65938) Diagnoses Type 2 diabetes mellitus with hyperglycemia, with long-term current use of insulin E11.65; Z79.4 Diabetes mellitus complication status: with hyperglycemia Mixed hyperlipidemia E78.2 Essential hypertension I10 Morbid obesity with BMI of 50.0-59.9, adult E66.01; Z68.43 Time Spent (min) 22
== END 2023-05-16 11:11 | disposition home or self-care (01) ==
PROVIDERS: PCP Internal Medicine; Visit Provider Internal Medicine
DX: E11.65 Type 2 diabetes mellitus with hyperglycemia (principal); Z79.4 Long term (current) use of insulin; E66.01 Morbid (severe) obesity due to excess calories; Z68.43 Body mass index [BMI] 50.0-59.9, adult; E78.2 Mixed hyperlipidemia; I10 Essential (primary) hypertension
CPT/HCPCS: 83036; 99214

== ENCOUNTER 2023-10-12 08:37 | Outpatient (REF) | payer MEDICARE, SELFPAY ==
[2023-10-12 11:15] LABS: Creatinine Urine 195.57 mg/dL; Microalbum/Creatinine Ratio Ur 11.2 ug/mg cr (<30)
[2023-10-12 11:25] LABS: Alanine Aminotransferase 22 U/L (0-31); Albumin Level 4.2 g/dL (3.5-5.0); Alkaline Phosphatase 86 U/L (39-117); Aspartate Amino Transferase 20 U/L (5-31); Bilirubin Total 0.3 mg/dL (0.0-1.0); Blood Urea Nitrogen 14 mg/dL (9-16); Calcium 9.6 mg/dL (8.4-10.2); Cholesterol 164 mg/dL (<200); Estimated Glomerular Filt Rate > 60; Glucose Fasting 158 mg/dL (60-99); HDL Cholesterol 55 mg/dL (>40); LDL Cholesterol Calculated 80 mg/dL (<100); Potassium 4.4 mmol/L (3.3-5.1); Sodium 141 mmol/L (135-145); Triglycerides 149 mg/dL (<150)
== END 2023-10-12 08:38 | disposition home or self-care (01) ==
LOC: HO.HMGCLDS 08:37
PROVIDERS: PCP Internal Medicine; Visit Provider Internal Medicine
DX: E78.5 Hyperlipidemia, unspecified (principal); E11.9 Type 2 diabetes mellitus without complications
CPT/HCPCS: 36415; 80053; 80061; 82043; 82570

== ENCOUNTER 2023-10-17 10:25 | Outpatient (AMB) | payer MEDICARE, SELFPAY ==
--- NOTE | 2023-10-17 10:27 | MHC.PC.OV ---
Vital Signs 10/17/23 10:32 Height 5 ft Weight 259 lb BMI 50.6 BP 132/78 Blood Pressure Location Lt brachial Position Sitting Intake Visit Reasons: dm Intake Note: Patient here for a follow up DM, letter request Cost Control Supervisor Required: No Accompanied by: Self / Same As Patient Allergies Iodinated Contrast Media [IV CONTRAST] Allergy (Severe, Verified 10/17/23 10:41) ANAPHYLAXIS morphine [MORPHINE] Allergy (Severe, Verified 10/17/23 10:41) CARDIAC ARREST Sulfa (Sulfonamide Antibiotics) [SULFA(SULFONAMIDE ANTIBIOTICS)] Allergy (Severe, Verified 10/17/23 10:41) WASNT ABLE TO SEE, right eye blindness adhesive tape Allergy (Intermediate, Verified 10/17/23 10:41) BLISTERS amoxicillin [Augmentin] Allergy (Intermediate, Verified 10/17/23 10:41) hives ciprofloxacin [Cipro] Allergy (Intermediate, Verified 10/17/23 10:41) hives clavulanic acid [Augmentin] Allergy (Intermediate, Verified 10/17/23 10:41) hives erythromycin base [Erythromycin Base] Allergy (Intermediate, Verified 10/17/23 10:41) HIVES iodine [IODINE] Allergy (Intermediate, Verified 10/17/23 10:41) BLISTERS levofloxacin [From LEVAQUIN] Allergy (Intermediate, Verified 10/17/23 10:41) RASH lobster Allergy (Intermediate, Uncoded 10/17/23 10:41) hives pork Allergy (Intermediate, Uncoded 10/17/23 10:41) hives Medication List - Last Reconciled 10/17/23 by Taylor Powers MD atorvastatin 40 mg PO BEDTIME 90 days blood sugar diagnostic (OneTouch Verio test strips) Use 1 test strips three times a day blood-glucose meter (OneTouch Verio Flex Meter) As directed 3x/day cyclobenzaprine 10 mg PO BEDTIME PRN 10 days fenofibrate 54 mg PO DAILY 90 days gabapentin 100 mg PO BID 90 days hydrocodone-acetaminophen 7.5-325 mg 1 tab PO Q6H PRN 30 days insulin NPH and regular human 100 unit/mL (70-30) (Novolin 70-30 FlexPen U-100 Insulin) 28 units (0.28 mL) subcut BID 30 days lisinopril 2.5 mg PO DAILY 90 days metformin 1,000 mg PO BID 90 days ondansetron 8 mg PO Q8H PRN 30 days pantoprazole 40 mg PO DAILY 90 days pen needle, diabetic (1st Tier Unifine Pentips) Use 1 pen needle twice a day pen needle, diabetic (Easy Comfort Pen [place]) Use 1 once a day [pen needles, diabetic 31 G x 6 mm As directed] [scooter As directed] semaglutide (Ozempic) 1 mg (0.75 mL) subcut QWEEK 90 days Tobacco use date assessed: 10/17/23 Dental Screening Dental Screen Date: 05/16/23 HPI HPI Comments History of Present Illness Details This is a 63-year-old female with diabetes mellitus type 2 on long-term current use of insulin, hypertension, hyperlipidemia, GERD and lumbar degenerative disc disease that comes today for follow-up on her conditions. A1c within goal. Blood pressure stable. LDL within goal. GERD well control with pantoprazole. Has low back pain secondary to lumbar degenerative disc disease aggravated by activity that has been well controlled with gabapentin and Vicodin as needed. Patient is aware that gabapentin and Vicodin can cause addiction and sedation. Denies any chest pain or shortness of breath. She is morbidly obese with a BMI of 50.6 and declines weight loss surgery. Advised to do diet and exercise as tolerated to reach BMI goal less than 30. 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 Diabetes mellitus Essential hypertension Lumbar degenerative disc disease Surgical History History of esophagogastroduodenoscopy (EGD) Hx of colonoscopy Status post fine needle aspiration Hx of cystoscopy History of total abdominal hysterectomy and bilateral salpingo-oophorectomy History of lumbar fusion History of carpal tunnel release History of lumbar laminectomy History of cholecystectomy History of tubal ligation Family History Father Melanoma Hypercholesteremia Substance use disorder Mother Diabetes Hypertension Bladder cancer Maternal Grandmother Cancer Family/Other FH: mental illness Social History Household Members: Spouse Housing: House Alcohol intake: never Patient Tobacco Use Status: Former Tobacco user Quit Date: 29 years ago Tobacco use type: Cigarette Years Smoked: 30 years e-Cigarette/Vaping Use: Never Used Second Hand Smoke Exposure: No service: No Current occupational status: disabled Cognitive needs: No Hearing needs: No Vision needs: Yes Questionnaire PHQ-9 Over the last 2 weeks, how often have you been bothered by any of the following problems? 1. Little interest or pleasure in doing things: not at all 2. Feeling down, depressed, or hopeless: not at all 3. Trouble falling or staying asleep, or sleeping too much: not at all 4. Feeling tired or having little energy: not at all 5. Poor appetite or overeating: not at all 6. Feeling bad about yourself - or that you are a failure or have let yourself or your family down: not at all 7. Trouble concentrating on things, such as reading the newspaper or watching television: not at all 8. Moving or speaking so slowly that other people could have noticed. Or the opposite - being so fidgety or restless that you have been moving around a lot more than usual: not at all 9. Thoughts that you would be better off or of hurting yourself in some way: not at all Total score: 0 Depression Screening Interpretation: Negative Depression Screening Done: Yes 76102 - PHQ-9 Billing: Yes Source: Developed by Drs. Cabrera Mccloud, Leilani Flanagan, Per Garcia and colleagues, with an educational charline from [employer]. Thrive Questionnaire Date Thrive assessed: 10/17/23 I am a: Patient What is your living situation today?: I have a steady place to live Within the past 12 months, did the food you bought not last and you didn't have the money to get more?: Never true Within the past 12 months, did you worry whether your food would run out before you got money to buy more?: Never true Do you have trouble paying for medicines?: No Do you have trouble getting transportation to medical appointments?: No Do you have trouble paying your heating and electricity bill?: No Do you have trouble taking care of your child, family member or friend?: No Do you have trouble with day-to-day activities such as bathing, preparing meals, shopping, managing finances, etc.?: No Are you currently unemployed and looking for a job?: No Are you interested in more education?: No Please select the resources that you would like help with: None Currently or been in a relationship where the following occur: no concerns reported THRIVE Score: 0 AUDIT C Alcohol Use Questionnaire (AUDIT-C) 1. How often do you have a drink containing alcohol?: Never Total Score: 0 Score Reviewed/Action Taken: No MATHEW-7 AMB Questionnaire MATHEW-7 Date MATHEW - 7 assessed: 10/17/23 Feeling nervous, anxious, or on edge: 0 = Not at all Not being able to stop or control worryin = Not at all Worrying too much about different things: 0 = Not at all Trouble relaxin = Not at all Being so restless that it is hard to sit still: 0 = Not at all Becoming easily annoyed or irritable: 0 = Not at all Feeling afraid as if something awful might happen: 0 = Not at all Total MATHEW-7 score (0-4 normal; 5-9 mild; 10-14 moderate; 15-21 severe): 0 Source: Developed by Drs. Cabrera Mccloud, Leilani Flanagan, Per Garcia and colleagues, with an educational charline from [employer]. MATHEW-7 Assessment Billing MATHEW-7 Assessment Tool: MATHEW-7 Assessment 47653 Review of Systems Const All systems reviewed & are unremarkable except as noted in HPI and below Eyes Reports no additional complaints, Denies change in vision and Denies other visual disturbances Card Denies chest pain at rest, Denies chest pain with activity, Denies edema, Denies irregular heart rhythm, Denies claudication, Denies dyspnea, Denies dyspnea on exertion, Denies orthopnea, Denies paroxysmal nocturnal dyspnea and Denies slow heart rate Resp Denies cough, Denies dyspnea and Denies dyspnea on exertion GI Denies abdominal pain, Denies change in bowel habits, Denies excessive flatus, Denies nausea and Denies vomiting Denies urinary incontinence, Denies urinary hesitancy and Denies urinary urgency Physical exam (Primary Care) Vital Signs: Last Vital Signs BP 132/78 10/17/23 10:32 BMI result Body Mass Index 50.6 Tobacco/Smoking Status: Tobacco use Status Tobacco use date assessed 10/17/23 10/17/23 10:36 Patient Tobacco Use Status Former Tobacco user 10/17/23 10:31 Tobacco use type Cigarette 10/17/23 10:31 e-Cigarette/Vaping Use Never Used 10/17/23 10:31 PHQ-9: PHQ-9 Score PHQ-9: Total score 0 10/17/23 10:36 Depression Screening Interpretation: Negative Thrive Assessment: Date of Thrive Assessment Date Thrive assessed 10/17/23 10/17/23 10:31 Currently or been in a relationship where the following occur: no concerns reported Resp Effort & Inspection: normal respiratory effort Auscultation: clear to auscultation bilaterally Cardio Jugular venous distension: no JVD Rate: regular rate Rhythm: regular rhythm Heart sounds: S1 normal heart sound present and S2 normal heart sound present Extrem General: Yes full ROM Results AMB Hemoglobin A1c AMB Hemoglobin A1c 6.7 % Last Edit by RAEANN Murillo on 10/17/23 10:40 Results Reviewed Results Reviewed: Laboratory Last Values Hgb A1c (Clinic) 6.7 % (4.0-6.0) H 10/17/23 10:26 Assessment and Plan Assessment & Plan (1) Type 2 diabetes mellitus, with long-term current use of insulin: Code(s): E11.9 - Type 2 diabetes mellitus without complications; Z79.4 - parts counterman (current) use of insulin Qualifiers: Diabetes mellitus complication status: with hyperglycemia Qualified Code(s): E11.65 - Type 2 diabetes mellitus with hyperglycemia; Z79.4 - assisted (current) use of insulin Plan: Continue metformin, Ozempic and insulin. A1c goal is equal or less than 7%. (2) Morbid obesity with BMI of 50.0-59.9, adult: Code(s): E66.01 - Morbid (severe) obesity due to excess calories; Z68.43 - Body mass index [BMI] 50.0-59.9, adult Plan: Start diet and exercise. BMI goal is less than 30. (3) HTN (hypertension): Code(s): I10 - Essential (primary) hypertension Plan: Continue lisinopril. Blood pressure goal is equal or less than 130/80. (4) HLD (hyperlipidemia): Code(s): E78.5 - Hyperlipidemia, unspecified Plan: Continue statins and fibrates. LDL goal is less than 70. (5) GERD (gastroesophageal reflux disease): Comment: Continue PPI avoid culprits Code(s): K21.9 - Gastro-esophageal reflux disease without esophagitis Qualifiers: Esophagitis presence: esophagitis presence not specified Qualified Code(s): K21.9 - Gastro-esophageal reflux disease without esophagitis Plan: Continue PPIs. (6) Lumbar degenerative disc disease: Code(s): M51.36 - Other intervertebral disc degeneration, lumbar region Plan: Continue gabapentin and Vicodin prn. Orders: Orders Lipid Panel 4 Months E78.5 - Hyperlipidemia, unspecified Hemoglobin A1c 4 Months E11.40 - Type 2 diabetes mellitus with diabetic neuropathy, unspecified Comprehensive [place]. Panel Fast 4 Months E11.65 - Type 2 diabetes mellitus with hyperglycemia, Z79.4 - parts counterman (current) use of insulin AMB Hemoglobin A1c Today E11.9 - Type 2 diabetes mellitus without complications Microalbumin, Random (w Creat) 4 Months E11.9 - Type 2 diabetes mellitus without complications Referrals Dermatology Referral L98.9 - Disorder of the skin and subcutaneous tissue, unspecified Medications: Changed From gabapentin 100 mg PO BID 90 days 180 caps 1RF To gabapentin 100 mg PO TID 90 days 270 caps 1RF Refilled hydrocodone-acetaminophen 7.5-325 mg 1 tab PO Q6H 30 days PRN 120 tabs 0RF pain Coding Level of Care Code Est Pt Level 4 (53270) Diagnoses Type 2 diabetes mellitus with hyperglycemia, with long-term current use of insulin E11.65; Z79.4 Diabetes mellitus complication status: with hyperglycemia Morbid obesity with BMI of 50.0-59.9, adult E66.01; Z68.43 HTN (hypertension) I10 HLD (hyperlipidemia) E78.5 Gastroesophageal reflux disease, unspecified whether esophagitis present K21.9 Esophagitis presence: esophagitis presence not specified Lumbar degenerative disc disease M51.36 Additional Codes MATHEW-7 Assessment Billing - MATHEW-7 Assessment Tool: MATHEW-7 Assessment 73169 ([id number]) Time Spent (min) 25
[2023-10-17 10:32] VITALS: BP 132/78; BMI 50.6
== END 2023-10-17 10:53 | disposition home or self-care (01) ==
PROVIDERS: PCP Internal Medicine; Visit Provider Internal Medicine
DX: E11.65 Type 2 diabetes mellitus with hyperglycemia (principal); Z79.4 Long term (current) use of insulin; E66.01 Morbid (severe) obesity due to excess calories; Z68.43 Body mass index [BMI] 50.0-59.9, adult; I10 Essential (primary) hypertension; E78.5 Hyperlipidemia, unspecified; K21.9 Gastro-esophageal reflux disease without esophagitis; M51.36 Other intervertebral disc degeneration, lumbar region; E11.9 Type 2 diabetes mellitus without complications
CPT/HCPCS: 83036; 99214

== ENCOUNTER 2023-10-18 11:18 | Outpatient (AMB) | payer MEDICARE, SELFPAY ==
[2023-10-18 11:23] VITALS: BP 150/100; PULSE 98; TEMP 36.2; O2SAT 99; BMI 51.0
--- NOTE | 2023-10-18 11:23 | AM.OFFWIN_ITS ---
Intake Vital Signs 10/18/23 11:23 Height 5 ft Weight 261 lb BMI 51.0 BP 150/100 H Blood Pressure Location Lt brachial Position Sitting Pulse 98 Pulse Source Pulse Oximeter Temp 97.2 F Temp Source Temporal Artery Scan Pulse Oximetry (%) 99 Oxygen Delivery Method Room Air Intake Visit Reasons: EP fell hit head Intake Note: fell hit head started today Patient Tobacco Use Status: Former Tobacco user Quit Date: 29 years ago Allergies Iodinated Contrast Media [IV CONTRAST] Allergy (Severe, Verified 10/18/23 11:29) ANAPHYLAXIS morphine [MORPHINE] Allergy (Severe, Verified 10/18/23 11:29) CARDIAC ARREST Sulfa (Sulfonamide Antibiotics) [SULFA(SULFONAMIDE ANTIBIOTICS)] Allergy (Severe, Verified 10/18/23 11:29) WASNT ABLE TO SEE, right eye blindness adhesive tape Allergy (Intermediate, Verified 10/18/23 11:29) BLISTERS amoxicillin [Augmentin] Allergy (Intermediate, Verified 10/18/23 11:29) hives ciprofloxacin [Cipro] Allergy (Intermediate, Verified 10/18/23 11:29) hives clavulanic acid [Augmentin] Allergy (Intermediate, Verified 10/18/23 11:29) hives erythromycin base [Erythromycin Base] Allergy (Intermediate, Verified 10/18/23 11:29) HIVES iodine [IODINE] Allergy (Intermediate, Verified 10/18/23 11:29) BLISTERS levofloxacin [From LEVAQUIN] Allergy (Intermediate, Verified 10/18/23 11:29) RASH lobster Allergy (Intermediate, Uncoded 10/17/23 10:41) hives pork Allergy (Intermediate, Uncoded 10/17/23 10:41) hives Do you need a note to return to daycare/school/sports/work: No HPI HPI Comments History of Present Illness Details 63-year-old female presents today after falling in the parking lot at [employer]. The patient states she fell in a hole and struck her head. She states she is having severe headache and has to puncture wounds and abrasion on her left eye and left hand. 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 Diabetes mellitus Essential hypertension Lumbar degenerative disc disease Surgical History History of esophagogastroduodenoscopy (EGD) Hx of colonoscopy Status post fine needle aspiration Hx of cystoscopy History of total abdominal hysterectomy and bilateral salpingo-oophorectomy History of lumbar fusion History of carpal tunnel release History of lumbar laminectomy History of cholecystectomy History of tubal ligation Family History Father Melanoma Hypercholesteremia Substance use disorder Mother Diabetes Hypertension Bladder cancer Maternal Grandmother Cancer Family/Other FH: mental illness Social History Household Members: Spouse Housing: House Alcohol intake: never Patient Tobacco Use Status: Former Tobacco user Quit Date: 29 years ago Tobacco use type: Cigarette Years Smoked: 30 years e-Cigarette/Vaping Use: Never Used Second Hand Smoke Exposure: No service: No Current occupational status: disabled Cognitive needs: No Hearing needs: No Vision needs: Yes Review of Systems Const All systems reviewed & are unremarkable except as noted in HPI and below Reports headache(s) Eyes Reports no additional complaints ENT Reports no additional complaints and Reports headache(s) Card Reports no additional complaints Resp Reports no additional complaints Skin/Breast Reports new lesions (Abrasion) Neuro Reports headache(s) Physical Exam Vital Signs: Last Vital Signs Temp 97.2 F 10/18/23 11:23 Pulse 98 10/18/23 11:23 BP 150/100 H 10/18/23 11:23 Pulse Ox 99 10/18/23 11:23 Oxygen Delivery Method Room Air 10/18/23 11:23 BMI result Body Mass Index 51.0 Const General: acute distress moderate HEENT Head: Yes abrasion, Yes contusion and Yes hematoma Ears: hearing grossly normal bilaterally General nose exam: Normal external nose present Face and sinus: Yes abrasion Skin Trauma: abrasion Wounds: wounds noted (Lateral aspect of left eye, left hand) Assessment & Plan Assessment & Plan (1) Head injury: Code(s): S09.90XA - Unspecified injury of head, initial encounter Plan: The patient agreed to go to the emergency department for evaluation. She was going to call her daughter for a ride. Refuses ambulance Plan See plan Coding Level of Care Code Est Pt Level 3 (79418) Diagnoses Head injury S09.90XA
== END 2023-10-18 11:35 | disposition home or self-care (01) ==
LOC: HO.HMGWI 11:18
PROVIDERS: PCP Internal Medicine
DX: S09.90XA Unspecified injury of head, initial encounter (principal)
CPT/HCPCS: 99213

== ENCOUNTER 2023-10-18 11:55 | Emergency (ER) | payer MEDICARE, SELFPAY ==
--- NOTE | ~2023-10-18 | XR_ITS ---
EXAMINATION: XR HAND/WRIST, LEFT CLINICAL INFORMATION: Fall this morning with pain COMPARISON: None TECHNIQUE: Four views of the left hand and wrist. FINDINGS: There is a tiny possible avulsion fracture involving the distal navicular on its radial aspect (see mercer image). No associated soft tissue swelling is seen. The bones and soft tissues are otherwise unremarkable . Alignment is anatomic. Joint spaces are maintained. No erosions or soft tissue calcifications. XR/XR hand wrist LT IMPRESSION: Possible tiny avulsion fracture involving the distal navicular. Correlate with point tenderness.
--- NOTE | ~2023-10-18 | CT_ITS ---
EXAMINATION: CT FACIAL BONES WITHOUT CONTRAST CLINICAL INFORMATION: Orbital pain after a fall COMPARISON: None available. TECHNIQUE: Thin section axial images with sagittal coronal reformats are obtained through the facial bones. This CT examination was performed using dose optimization techniques as appropriate, variously including the following: *Automated exposure control *Adjustment of mA and/or kV according to patient size (this includes techniques or standardized protocols for targeted exams where dose is matched to indication/reason for exam; i.e. extremities or head) *Use of iterative reconstruction technique DLP: 287 mGy-cm FINDINGS: Mandible and zygomatic arches intact. Orbits intact. Orbital rims intact. Maxillary sinuses clear. There is mild to moderate deviation of the nasal septum to the left of the right and left infundibulum are patent. The right and left TMJs are not dislocated. CT/CT facial bones wo IV con IMPRESSION: Unremarkable exam.
--- NOTE | ~2023-10-18 | CT_ITS ---
EXAMINATION: CT HEAD WITHOUT CONTRAST CLINICAL INFORMATION: Headaches after fall COMPARISON: None available. TECHNIQUE: Contiguous axial imaging was performed from the skull base to vertex without intravenous administration of contrast. This CT examination was performed using dose optimization techniques as appropriate, variously including the following: *Automated exposure control *Adjustment of mA and/or kV according to patient size (this includes techniques or standardized protocols for targeted exams where dose is matched to indication/reason for exam; i.e. extremities or head) *Use of iterative reconstruction technique DLP: 626 mGy-cm FINDINGS: No intra or extra-axial fluid collection or hemorrhage, mass, or mass effect. Calvarium intact. CT/CT head/brain wo IV con IMPRESSION: No acute intracranial pathology.
--- NOTE | ~2023-10-18 | CT_ITS ---
EXAMINATION: CT CERVICAL SPINE WITHOUT CONTRAST CLINICAL INFORMATION: Pain after falling. Neck pain COMPARISON: None available. TECHNIQUE: Thin section axial imaging with sagittal coronal reformats. This CT examination was performed using dose optimization techniques as appropriate, variously including the following: *Automated exposure control *Adjustment of mA and/or kV according to patient size (this includes techniques or standardized protocols for targeted exams where dose is matched to indication/reason for exam; i.e. extremities or head) *Use of iterative reconstruction technique DLP: 503 mGy-cm FINDINGS: Advanced degenerative change noted C3-C7 with disc space narrowing, anterior and posterior spurring and moderate disc protrusions throughout. This creates mild mass effect on the ventral aspect of the canal but no evidence for fracture or destructive process. The prevertebral soft tissues are normal. Nodule lower left lobe of the thyroid incidentally observed but this was described on the prior ultrasound study of 06/24/2022 [address] 03/18/2022. CT/CT cervical spine wo IV con IMPRESSION: Advanced multilevel degenerative change. Fleischner guidelines were followed.
[2023-10-18 12:24] VITALS: BP 161/88; PULSE 81; RESP 18; TEMP 36.2; O2SAT 98; BMI 49.6
--- NOTE | 2023-10-18 12:34 | ED.FALL ---
HPI - Fall General Chief Complaint: Head Injury Stated Complaint: Fall head inj Time Seen by Provider: 10/18/23 15:43 Source: patient Mode of arrival: ambulatory Limitations: no limitations History of Present Illness HPI Narrative: 63 y/o female presenting to the ER from Urgent Care for evaluation of headache and left oribital pain and left eye pain s/p mechanical fall at 1030am today. tripped in a pothole and fell onto her face, no LOC and not on anticoagulation. no vision changes. She reports left hand and wrist pain from falling on an outstretched hand. She reports a 10/10 headache at this time. complaint: fall Onset (ago): hour(s) Fall from: standing Fall witnessed: no Place fall occurred: street Loss of consciousness: none Prolonged down time: no Symptoms prior to fall: none Context: tripped/slipped Location of injury: head and face Location of injury - extremities: left: hand Severity: severe Severity scale (1-10): 10 Quality: sharp and aching Associated symptoms (after fall): headache Related Data Previous Rx's ?Medication ?Instructions ?Recorded pen needle, diabetic 31 gauge x #200 ea 03/08/22 5/ (1st Tier Unifine Pentips) pen needle, diabetic 31 gauge x #50 ea 03/09/2208/26 (Easy Comfort Pen Fontana) pen needles, diabetic 31 G x 6 mm #90 ea 03/10/22 blood-glucose meter (OneTouch #1 ea 05/04/22 Verio Flex Meter) cyclobenzaprine 10 mg tablet 10 mg PO BEDTIME PRN muscle spasm 06/07/22 10 days #10 tabs atorvastatin 40 mg tablet 40 mg PO BEDTIME 90 days #90 tabs 07/28/22 blood sugar diagnostic (OneTouch #100 ea 08/16/22 Verio test strips) ondansetron 8 mg disintegrating 8 mg PO Q8H PRN nausea and 09/09/22 tablet vomiting 30 days #14 tabs pantoprazole 40 mg tablet,delayed 40 mg PO DAILY 90 days #90 tabs 12/08/22 release semaglutide 1 mg/dose (4 mg/3 mL) 1 mg (0.75 mL) subcut QWEEK 90 12/29/22 subcutaneous pen injector (Ozempic) days #9.75 mL fenofibrate 54 mg tablet 54 mg PO DAILY 90 days #90 tabs 12/31/22 scooter #1 ea 02/23/23 metformin 1,000 mg tablet 1,000 mg PO BID 90 days #180 tabs 06/21/23 lisinopril 2.5 mg tablet 2.5 mg PO DAILY 90 days #90 tabs 07/18/23 insulin NPH-regular 70-30 U-100 28 unit (0.28 mL) subcut BID 30 08/02/23 insulin 100 unit/mL subcutaneous days #16.8 mL pen (Novolin 70-30 FlexPen U-100 Insulin) gabapentin 100 mg capsule 100 mg PO TID 90 days #270 caps 10/17/23 hydrocodone 7.5 mg-acetaminophen 1 tab PO Q6H PRN pain 30 days #120 10/17/23 325 mg tablet tabs Allergies Allergy/AdvReac Type Severity Reaction Status Date / Time Iodinated Contrast Media Allergy Severe ANAPHYLAXIS Verified 10/18/23 12:28 [IV CONTRAST] morphine [MORPHINE] Allergy Severe CARDIAC Verified 10/18/23 12:28 ARREST Sulfa (Sulfonamide Allergy Severe WASNT ABLE Verified 10/18/23 12:28 Antibiotics) TO SEE, [SULFA(SULFONAMIDE right eye ANTIBIOTICS)] blindness adhesive tape Allergy Intermediate BLISTERS Verified 10/18/23 12:28 amoxicillin [Augmentin] Allergy Intermediate hives Verified 10/18/23 12:28 ciprofloxacin [Cipro] Allergy Intermediate hives Verified 10/18/23 12:28 clavulanic acid [Augmentin] Allergy Intermediate hives Verified 10/18/23 12:28 erythromycin base Allergy Intermediate HIVES Verified 10/18/23 12:28 [Erythromycin Base] iodine [IODINE] Allergy Intermediate BLISTERS Verified 10/18/23 12:28 levofloxacin [From LEVAQUIN] Allergy Intermediate RASH Verified 10/18/23 12:28 lobster Allergy Intermediate hives Uncoded 10/18/23 12:28 pork Allergy Intermediate hives Uncoded 10/18/23 12:28 Review of Systems Review of Systems: Yes all other systems are reviewed and are negative PMFSH Past Medical History Medical History (Updated 10/19/23 @ 00:01 by Halie Rose) Morbid obesity with BMI of 45.0-49.9, adult Sinusitis Multinodular thyroid Lumbar pain HLD (hyperlipidemia) HTN (hypertension) T2DM (type 2 diabetes mellitus) Bilateral knee pain Super-super obese Right shoulder pain Chronic back pain Frequent UTI Anxiety Encounter for screening colonoscopy GERD (gastroesophageal reflux disease) Multinodular thyroid Goiter Obesity due to excess calories Diabetes type 2, uncontrolled Right knee pain Morbid obesity Mixed hyperlipidemia 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 Diabetes mellitus Essential hypertension Lumbar degenerative disc disease Surgical History History of esophagogastroduodenoscopy (EGD) Hx of colonoscopy Status post fine needle aspiration Hx of cystoscopy History of total abdominal hysterectomy and bilateral salpingo-oophorectomy History of lumbar fusion History of carpal tunnel release History of lumbar laminectomy History of cholecystectomy History of tubal ligation Family History Family History Father Melanoma Hypercholesteremia Substance use disorder Mother Diabetes Hypertension Bladder cancer Maternal Grandmother Cancer Family/Other FH: mental illness Social History Social History Household Members: Spouse Housing: House Alcohol intake: never Patient Tobacco Use Status: Former Tobacco user Quit Date: 29 years ago Tobacco use type: Cigarette Years Smoked: 30 years e-Cigarette/Vaping Use: Never Used Second Hand Smoke Exposure: No Advance Directives: No Advance Directives Information Provided: No service: No Current occupational status: disabled Cognitive needs: No Hearing needs: No Vision needs: Yes Physical Exam Vital Signs: Vital Signs: Last Vital Signs Temp 97.2 F 10/18/23 16:03 Pulse 81 10/18/23 16:03 Resp 18 10/18/23 16:03 BP 161/88 H 10/18/23 16:03 Pulse Ox 98 10/18/23 16:03 O2 Del Method Room Air 10/18/23 16:03 BMI result Body Mass Index 49.6 Appearance: Alert. Oriented X3. No acute distress. Head/face: normocephalic, superficial abrasion over the left orbit with [id number] swelling, mild tenderness. Eyes: Pupils equal, round and reactive to light. EOMI. Normal-appearing conjunctiva. ENT: Pharynx normal. No tonsillar swelling or exudate. Neck: Normal inspection. Neck supple. No midline tenderness. CVS: Normal heart rate and rhythm. Pulses normal. Respiratory: No respiratory distress. Breath sounds normal. Abdomen: Soft and nontender. +BS x4 Skin: Skin warm and dry. Normal skin color. Normal skin turgor. No rashes. Extremities: No lower extremity edema. No joint swelling. Right hand in a velcro wrist splint from home. Left hand with no gross deformity. tenderness over the thenar eminence on the palmar aspect. 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 Neurovascularly intact Neuro/psych: Oriented X 3. No motor deficit. No sensory deficit. CN II-XII intact. Normal speech and cognition. Steady gait Course Course Course Narrative: This is a Rapid Medical Examination (RME) performed by Alesia Garcia PA-C in triage. Full HPI, ROS, assessment and treatment plan per primary provider in the Main ED. 63 y/o female presenting to the ER from Urgent Care for evaluation of headache and left oribital pain and left eye pain s/p mechanical fall at 1030am today. tripped in a pothole and fell onto her face, no LOC and not on anticoagulation. no vision changes. on exam she has mild swelling of the left upper obit, small abrasion. PERRLA bilaterally and EOMI. vision is grossly normal. left hand with no gross deformity, small abrasion. steady gait Plan: CT head, facial bones, and cervical spine, XR left hand/wrist Medical Decision Making Medical Decision Making MDM Narrative: 63-year-old female with history of morbid obesity, HTN, HLD, dm, anxiety, GERD, chronic back pain who presents to the ER for evaluation of a fall, tripping and hitting her face this morning. She did fall on outstretched hand and has some left hand and wrist pain. Imaging was ordered from triage including CT of her head, face, neck. No acute traumatic injuries were appreciated. X-ray of her left hand was performed which shows a abnormality of her scaphoid. Imaging was sent to [facility] from [facility]. Agree with a Velcro thumb spica splint. She has her own orthopedist at doing [facility] and has an appointment next week. We discussed the importance of compliance with this, treating it like a cast and only removing for handwashing and bathing. We discussed the importance of outpatient follow-up and she expressed understanding. She is stable for discharge home with outpatient follow-up. Differential Diagnosis Differential Diagnoses: The differential diagnosis associated with the presentation includes Orbital fracture, closed head injury, concussion, subdural hematoma, wrist sprain, hand fracture, scaphoid fracture, distal radius fracture Admission/Observation Consideration of admission/observation: Escalation of care including admission/observation considered Independent Interpretation I performed an independent interpretation of an: Plain X-Ray and CT Scan Interpretation: CT scan of the head without any acute bleed or swelling. X-ray of the left hand was reviewed, appears there has a small avulsion of the scaphoid Radiology Impression Discussion of test interpretation with radiology: I have reviewed the radiologist's reading. Radiologist Impression: CT/CT head/brain wo IV con IMPRESSION: No acute intracranial pathology. CT/CT facial bones wo IV con IMPRESSION: Unremarkable exam CT/CT cervical spine wo IV con IMPRESSION: Advanced multilevel degenerative change. EXAMINATION: XR HAND/WRIST, LEFT CLINICAL INFORMATION: Fall this morning with pain COMPARISON: None TECHNIQUE: Four views of the left hand and wrist. FINDINGS: There is a tiny possible avulsion fracture involving the distal navicular on its radial aspect (see mercer image). No associated soft tissue swelling is seen. The bones and soft tissues are otherwise unremarkable . Alignment is anatomic. Joint spaces are maintained. No erosions or soft tissue calcifications. XR/XR hand wrist LT IMPRESSION: Possible tiny avulsion fracture involving the distal navicular. Correlate with point tenderness. External Record Review External record reviewed: Prior outpatient labs and Prior outpatient radiology Prescription Management I considered prescription management with: Pain Medication Discharge Plan Discharge Clinical Impression: Fracture of scaphoid bone of hand, Contusion of left orbit Patient Disposition: Home, Self-Care Instructions: Scaphoid Fracture (ED) Additional Instructions: Your CT scan did not show any acute injuries. Where the provided velcro splint at all times unless washing her hands or showering. It is very important that you follow-up with your orthopedist for further evaluation and treatment. If you develop new or worsening symptoms call 911 or come back to the ER for further evaluation. EXAMINATION: XR HAND/WRIST, LEFT CLINICAL INFORMATION: Fall this morning with pain COMPARISON: None TECHNIQUE: Four views of the left hand and wrist. FINDINGS: There is a tiny possible avulsion fracture involving the distal navicular on its radial aspect (see mercer image). No associated soft tissue swelling is seen. The bones and soft tissues are otherwise unremarkable . Alignment is anatomic. Joint spaces are maintained. No erosions or soft tissue calcifications. XR/XR hand wrist LT IMPRESSION: Possible tiny avulsion fracture involving the distal navicular. Correlate with point tenderness. Prescriptions: No Action (DME) pen needle, diabetic [1st Tier Unifine Pentips] 31 gauge x 5/16 needle See Rx Instructions .Route Qty: 200 6RF Rx Instructions: Use 1 pen needle twice a day (DME) pen needle, diabetic [Easy Comfort Pen Fontana] 31 gauge x 3/16 needle See Rx Instructions .Route Qty: 50 6RF Rx Instructions: Use 1 once a day (DME) pen needles, diabetic 31 G x 6 mm 31 x 6 See Rx Instructions .Route .MEDSUPPLY Qty: 90 3RF Rx Instructions: As directed (DME) blood-glucose meter [OneTouch Verio Flex meter] [facility] [place] See Rx Instructions .Route Qty: 1 0RF Rx Instructions: As directed 3x/day cyclobenzaprine 10 mg tablet 10 mg PO BEDTIME PRN (Reason: muscle spasm) 10 Days Qty: 10 0RF atorvastatin 40 mg tablet 40 mg PO BEDTIME 90 Days Qty: 90 3RF (DME) OneTouch Verio test strips Strip See Rx Instructions .Route Qty: 100 11RF Rx Instructions: Use 1 test strips three times a day pantoprazole 40 mg tablet,delayed release (DR/EC) 40 mg PO DAILY 90 Days Qty: 90 3RF Ozempic 1 mg/dose (4 mg/3 mL) pen injector 1 mg subcut QWEEK 90 Days Qty: 9.75 11RF fenofibrate 54 mg tablet 54 mg PO DAILY 90 Days Qty: 90 1RF (DME) scooter See Rx Instructions .Route .MEDSUPPLY Qty: 1 0RF Rx Instructions: As directed metformin 1,000 mg tablet 1,000 mg PO BID 90 Days Qty: 180 1RF lisinopril 2.5 mg tablet 2.5 mg PO DAILY 90 Days Qty: 90 1RF Novolin 70-30 FlexPen U-100 100 unit/mL (70-30) insulin pen 28 unit subcut BID 30 Days Qty: 16.8 6RF ondansetron 8 mg tablet,disintegrating 8 mg PO Q8H PRN (Reason: nausea and vomiting) 30 Days Qty: 14 3RF gabapentin 100 mg capsule 100 mg PO TID 90 Days Qty: 270 1RF hydrocodone-acetaminophen 7.5-325 mg tablet 1 tab PO Q6H PRN (Reason: pain) 30 Days Qty: 120 0RF Interventions: ED Discharge Assessment Last Done: 10/18/23 16:03 Discharge Date/Time: 10/18/23 16:03 Print Language: [place]
[2023-10-18 16:03] VITALS: BP 161/88; PULSE 81; RESP 18; TEMP 36.2; O2SAT 98
== END 2023-10-18 16:03 | disposition home or self-care (01) ==
LOC: HO.ED 15:59
PROVIDERS: Emergency Provider Emergency Medicine; PCP Internal Medicine
DX: S62.002A Unspecified fracture of navicular [scaphoid] bone of left wrist, initial encounter for closed fracture (principal); S05.12XA Contusion of eyeball and orbital tissues, left eye, initial encounter; I10 Essential (primary) hypertension; E11.9 Type 2 diabetes mellitus without complications; W01.0XXA Fall on same level from slipping, tripping and stumbling without subsequent striking against object, initial encounter; Y93.9 Activity, unspecified; Y92.410 Unspecified street and highway as the place of occurrence of the external cause; Y99.9 Unspecified external cause status
CPT/HCPCS: 70450; 70486; 72125; 73110; 73130; 99283; 99284

== ENCOUNTER 2023-12-26 10:04 | Outpatient (REF) | payer MEDICARE, SELFPAY ==
--- NOTE | ~2023-12-26 | XR_ITS ---
EXAMINATION: XR KNEE, RIGHT CLINICAL INFORMATION: Knee pain COMPARISON: None available. TECHNIQUE: Two views of the right knee. FINDINGS: No acute fracture or dislocation. There is moderate tricompartmental joint space narrowing and osteophyte formation. There is a small joint effusion. XR/XR knee RT 2V IMPRESSION: Moderate degenerative disease of the right knee.
== END 2023-12-26 10:05 | disposition home or self-care (01) ==
LOC: HO.HMGCX 10:04
PROVIDERS: PCP Internal Medicine; Visit Provider Internal Medicine
DX: M25.561 Pain in right knee (principal)
CPT/HCPCS: 73560

== ENCOUNTER 2024-02-29 10:40 | Outpatient (AMB) | payer MEDICARE, SELFPAY ==
[2024-02-29 10:46] VITALS: BP 152/82; BMI 50.3
--- NOTE | 2024-02-29 10:46 | A.OFFPC_ITS ---
Vital Signs 02/29/24 10:46 Height 5 ft 1 in Weight 266 lb BMI 50.3 BP 152/82 H Blood Pressure Location Lt brachial Position Sitting Intake Visit Reasons: dm Intake Note: Patient here for a follow up DM [employer] Required: No Accompanied by: Self / Same As Patient Allergies Iodinated Contrast Media [IV CONTRAST] Allergy (Severe, Verified 02/29/24 11:01) ANAPHYLAXIS morphine [MORPHINE] Allergy (Severe, Verified 02/29/24 11:01) CARDIAC ARREST Sulfa (Sulfonamide Antibiotics) [SULFA(SULFONAMIDE ANTIBIOTICS)] Allergy (Severe, Verified 02/29/24 11:01) WASNT ABLE TO SEE, right eye blindness adhesive tape Allergy (Intermediate, Verified 02/29/24 11:01) BLISTERS amoxicillin [Augmentin] Allergy (Intermediate, Verified 02/29/24 11:01) hives ciprofloxacin [Cipro] Allergy (Intermediate, Verified 02/29/24 11:01) hives clavulanic acid [Augmentin] Allergy (Intermediate, Verified 02/29/24 11:01) hives erythromycin base [Erythromycin Base] Allergy (Intermediate, Verified 02/29/24 11:01) HIVES iodine [IODINE] Allergy (Intermediate, Verified 02/29/24 11:01) BLISTERS levofloxacin [From LEVAQUIN] Allergy (Intermediate, Verified 02/29/24 11:01) RASH lobster Allergy (Intermediate, Uncoded 02/29/24 11:01) hives pork Allergy (Intermediate, Uncoded 02/29/24 11:01) hives Medication List - Last Reconciled 02/29/24 by Taylor Powers MD atorvastatin 40 mg PO BEDTIME 90 days blood sugar diagnostic (OneTouch Verio test strips) Use 1 test strips three times a day blood-glucose meter (OneTouch Verio Flex Meter) As directed 3x/day cyclobenzaprine 10 mg PO BEDTIME PRN 10 days fenofibrate 54 mg PO DAILY 90 days gabapentin 100 mg PO TID 90 days hydrocodone-acetaminophen 7.5-325 mg 1 tab PO Q6H PRN 30 days insulin NPH and regular human 100 unit/mL (70-30) (Novolin 70-30 FlexPen U-100 Insulin) 28 units (0.28 mL) subcut BID 30 days lisinopril 2.5 mg PO DAILY 90 days metformin 1,000 mg PO BID 90 days ondansetron 8 mg PO Q8H PRN 30 days pantoprazole 40 mg PO DAILY 90 days pen needle, diabetic (1st Tier Unifine Pentips) Use 1 pen needle twice a day pen needle, diabetic (Easy Comfort Pen [place]) Use 1 once a day [pen needles, diabetic 31 G x 6 mm As directed] [scooter As directed] semaglutide (Ozempic) 1 mg (0.75 mL) subcut QWEEK 90 days Tobacco use date assessed: 10/17/23 Fall risk assessment: No Falls in past year Last assessed Fall Risk: 02/29/24 Dental Screening Dental Screen Date: 02/29/24 Did you have a dental visit in the last 12 months?: Yes Did you have a dental problem in the last 6 months where you did not have access to dental care?: No Was dental information given to patient?: Patient has dentist HPI HPI Comments History of Present Illness Details This is a 64-year-old female with diabetes mellitus type 2 on long-term current use of insulin, hypertension, hyperlipidemia and morbid obesity that comes today for follow-up on her conditions. A1c within goal and I will decrease insulin. Blood pressure elevated and she does not want to increase lisinopril because she said it is because she is in pain and has not take her pain pill. She will check it at home 3 times a week. Last LDL was close to goal and this will be repeated in next office visit. She is morbidly obese with a BMI of 50.3 and was advised to do diet and exercise as tolerated to reach BMI goal less than 30. 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 Diabetes mellitus Essential hypertension Lumbar degenerative disc disease Surgical History History of esophagogastroduodenoscopy (EGD) Hx of colonoscopy Status post fine needle aspiration Hx of cystoscopy History of total abdominal hysterectomy and bilateral salpingo-oophorectomy History of lumbar fusion History of carpal tunnel release History of lumbar laminectomy History of cholecystectomy History of tubal ligation Family History Father Melanoma Hypercholesteremia Substance use disorder Mother Diabetes Hypertension Bladder cancer Maternal Grandmother Cancer Family/Other FH: mental illness Social History Household Members: Spouse Housing: House Alcohol intake: never Patient Tobacco Use Status: Former Tobacco user Tobacco use type: Cigarette Years Smoked: 30 years e-Cigarette/Vaping Use: Never Used Second Hand Smoke Exposure: No service: No Current occupational status: disabled Cognitive needs: No Hearing needs: No Vision needs: Yes Questionnaire Thrive Questionnaire Date Thrive assessed: 10/17/23 Are you currently unemployed and looking for a job?: No MATHEW-7 AMB Questionnaire MATHEW-7 Date MATHEW - 7 assessed: 10/17/23 Source: Developed by Drs. Cabrera Mccloud, Leilani Flanagan, Per mujica nd colleagues, with an educational charline from [employer]. Review of Systems Const All systems reviewed & are unremarkable except as noted in HPI and below Card Denies chest pain at rest, Denies chest pain with activity, Denies edema, Denies irregular heart rhythm, Denies claudication, Denies dyspnea, Denies dyspnea on exertion, Denies orthopnea, Denies paroxysmal nocturnal dyspnea and Denies slow heart rate Resp Denies cough, Denies dyspnea and Denies dyspnea on exertion GI Denies abdominal pain, Denies change in bowel habits, Denies excessive flatus, Denies nausea and Denies vomiting Physical exam (Primary Care) Vital Signs: Last Vital Signs BP 152/82 H 02/29/24 10:46 BMI result Body Mass Index 50.3 BMI Assessment/Plan discussion: High BMI High, discussed plan: lifestyle, weight reduction, dietary and physical activity Tobacco/Smoking Status: Tobacco use Status Tobacco use date assessed 10/17/23 02/29/24 10:50 Patient Tobacco Use Status Former Tobacco user 02/29/24 10:50 Tobacco use type Cigarette 02/29/24 10:50 e-Cigarette/Vaping Use Never Used 02/29/24 10:50 Thrive Assessment: Date of Thrive Assessment Date Thrive assessed 10/17/23 02/29/24 10:50 Resp Effort & Inspection: normal respiratory effort Auscultation: clear to auscultation bilaterally Cardio Jugular venous distension: no JVD Rate: regular rate Rhythm: regular rhythm Heart sounds: S1 normal heart sound present and S2 normal heart sound present Extrem General: Yes full ROM Results AMB Hemoglobin A1c 2 AMB Hemoglobin A1c 4.1 % Last Edit by RAEANN Murillo on 02/29/24 10:5 9 Results Reviewed Results Reviewed: Laboratory Last Values Hgb A1c (Clinic) 4.1 % (4.0-6.0) 02/29/24 10:45 Assessment and Plan Assessment & Plan (1) Morbid obesity with BMI of 50.0-59.9, adult: Code(s): E66.01 - Morbid (severe) obesity due to excess calories; Z68.43 - Body mass index [BMI] 50.0-59.9, adult Plan: Start diet and exercise. BMI goal is less than 30. (2) Type 2 diabetes mellitus, with long-term current use of insulin: Code(s): E11.9 - Type 2 diabetes mellitus without complications; Z79.4 - USP (current) use of insulin Qualifiers: Diabetes mellitus complication status: with hyperglycemia Qualified Code(s): E11.65 - Type 2 diabetes mellitus with hyperglycemia; Z79.4 - terminal carman (current) use of insulin Plan: Decrease insulin from 28 units twice a day to 25 units twice a day. Continue Ozempic and metformin. A1c goal is equal or less than 7%. (3) HLD (hyperlipidemia): Code(s): E78.5 - Hyperlipidemia, unspecified Plan: Continue statins. LDL goal is less than 70. (4) Essential hypertension: Code(s): I10 - Essential (primary) hypertension Plan: Continue lisinopril. Ambulatory blood pressure monitor in was advised to do 2 to 3 times a week. Orders: Orders AMB Hemoglobin A1c Today E11.65 - Type 2 diabetes mellitus with hyperglycemia, Z79.4 - terminal carman (current) use of insulin US thyroid Today E04.2 - Nontoxic multinodular goiter Lipid Panel 4 Months E78.5 - Hyperlipidemia, unspecified Microalbumin, Random (w Creat) 4 Months R80.9 - Proteinuria, unspecified Comprehensive [place]. Panel Fast 4 Months E11.65 - Type 2 diabetes mellitus with hyperglycemia, Z79.4 - USP (current) use of insulin Medications: New semaglutide (Ozempic) 1 mg (0.75 mL) subcut QWEEK 3 mL 2RF 4 weeks Changed From insulin NPH and regular human 100 unit/mL (70-30) (Novolin 70-30 FlexPen U- 100 Insulin) 28 units (0.28 mL) subcut BID 30 days 16.8 mL 0RF E11.65 - Type 2 diabetes mellitus with hyperglycemia To insulin NPH and regular human 100 unit/mL (70-30) (Novolin 70-30 FlexPen U- 100 Insulin) 25 units (0.25 mL) subcut BID 15 mL 1RF 30 days E11.65 - Type 2 diabetes mellitus with hyperglycemia Discontinued semaglutide (Ozempic) Discontinued Reason: No Longer Medically Relevant 1 mg (0.75 mL) subcut QWEEK 90 days 9.75 mL 11RF E11.9 - Type 2 diabetes mellitus without complications Coding Level of Care Code Est Pt Level 4 (43643) Complex EM visit Add On G2211 Diagnoses Morbid obesity with BMI of 50.0-59.9, adult E66.01; Z68.43 Type 2 diabetes mellitus with hyperglycemia, with long-term current use of insulin E11.65; Z79.4 Diabetes mellitus complication status: with hyperglycemia HLD (hyperlipidemia) E78.5 Essential hypertension I10 Time Spent (min) 23
== END 2024-02-29 11:20 | disposition home or self-care (01) ==
PROVIDERS: PCP Internal Medicine; Visit Provider Internal Medicine
DX: E66.01 Morbid (severe) obesity due to excess calories (principal); Z68.43 Body mass index [BMI] 50.0-59.9, adult; E11.65 Type 2 diabetes mellitus with hyperglycemia; Z79.4 Long term (current) use of insulin; E78.5 Hyperlipidemia, unspecified; I10 Essential (primary) hypertension

== ENCOUNTER → 2024-02-29 10:40 | Outpatient (BNVA) | payer MEDICARE, SELFPAY | PROVIDERS: PCP Internal Medicine; Visit Provider Internal Medicine | DX: E11.65 Type 2 diabetes mellitus with hyperglycemia (principal); E66.01 Morbid (severe) obesity due to excess calories; Z68.42 Body mass index [BMI] 45.0-49.9, adult; E78.5 Hyperlipidemia, unspecified; I10 Essential (primary) hypertension; Z79.4 Long term (current) use of insulin | CPT/HCPCS: 83036; 99212 ==

== ENCOUNTER 2024-03-12 10:12 | Outpatient (REF) | payer MEDICARE, SELFPAY ==
--- NOTE | ~2024-03-12 | US_ITS ---
EXAMINATION: US THYROID CLINICAL INFORMATION: Nontoxic multinodular goiter. COMPARISON: Ultrasound soft tissue head/neck thyroid dated 03/18/2022 and 01/13/2021. TECHNIQUE: Linear transducer grayscale and color Doppler examination with attention to the region of the thyroid. FINDINGS: SIZE: Measurements of the thyroid lobes and nodules are given in sagittal, anteroposterior and transverse dimensions respectively. Right Thyroid Lobe: 4.5 x 1.5 x 2.1 cm, volume 7.4 mL. Previously 5.2 x 1.2 x 1.9 cm, volume 6.09 mL. Parenchyma: The gland echotexture is homogeneous. Thyroid vascularity is normal. Left Thyroid Lobe: 5.6 x 2.2 x 1.9 cm, volume 12.2 mL. Previously 4.9 x 1.5 x 2.1 cm, volume 8.2 mL. Parenchyma: The gland echotexture is homogeneous. Thyroid vascularity is normal. Isthmus: 0.5 cm in maximum AP dimension. Previously 0.5 cm. Estimated total number of nodules greater than or equal to 1 cm: 3. [employer] nodules are described as follows: 1. Location: Right mid. Size: 1.3 x 0.6 x 0.8 cm, volume 0.3 mL. Previously: 1.0 x 0.6 x 0.8 cm, volume 0.3 mL. Nodule characteristics: Composition: Spongiform (0). Echogenicity: Anechoic (0). Shape: Not taller than wide (0). Margins: Smooth (0). Echogenic Foci: None (0). ACR TI-RADS total points: 0 Previous: 0 ACR TI-RADS category: 1 Previous: 1 Significant change in size (>/= 20% in 2 dimensions and minimal increase of 2 mm or 50% or greater increase in volume): No Change in features: No Change in ACR TI-RADS risk category: No 2. Location: Right mid inferior. Size: 1.0 x 0.6 x 0.7 cm, volume 0.2 mL. Previously: 0.9 x 0.7 x 0.8 cm, volume 0.2 mL. Nodule characteristics: Composition: Spongiform (0). Echogenicity: Anechoic (0). Shape: Not taller than wide (0). Margins: Smooth (0). Echogenic Foci: None (0). ACR TI-RADS total points: 0 Previous: 0 ACR TI-RADS category: 1 Previous: 1 Significant change in size (>/= 20% in 2 dimensions and minimal increase of 2 mm or 50% or greater increase in volume): No Change in features: No Change in ACR TI-RADS risk category: No 3. Location: Left inferior. Size: 2.0 x 1.7 x 2.3 cm, volume 4.1 mL. Previously: 2.0 x 1.7 x 1.9 cm, volume 3.4 mL. Nodule characteristics: Composition: Solid (2). Echogenicity: Hyperechoic (1). Shape: Not taller than wide (0). Margins: Smooth (0). Echogenic Foci: None (0). ACR TI-RADS total points: 3 Previous: 3 ACR TI-RADS category: 3 Previous: 3 Significant change in size (>/= 20% in 2 dimensions and minimal increase of 2 mm or 50% or greater increase in volume): No Change in features: No Change in ACR TI-RADS risk category: No NODES: No lymphadenopathy is seen in the tissue surrounding the thyroid gland. US/US thyroid IMPRESSION: Multinodular goiter. The left lower pole nodule meets the criteria for follow-up in one year. ACR TI-RADS RECOMMENDATION REFERENCE: Ultrasound-guided fine-needle aspiration, follow up ultrasound, no further followup. * TR1 (0 point) and TR2 (2 points): No FNA or followup * TR3 (3 points): FNA if more than or equal to 2.5 cm in maximum dimension, follow up ultrasound in 1, 3 and 5 years if 1.5 to 2.4 cm in maximum dimension. * TR4 (4-6 points): FNA if more than or equal to 1.5 cm in maximum dimension, follow up ultrasound in 1, 2, 3 and 5 years if 1 to 1.4 cm in maximum dimension. * TR5 (more than or equal to 7 points): FNA if more than or equal to 1 cm in maximum dimension, follow up ultrasound every year for 5 years if 0.5 to 0.9 cm in maximum dimension. * TR3, TR4 or TR5 nodules that are below the size threshold for follow up receive no followup. Electronically signed by: Baldev Pereyra MD 04/02/2024 09:07 AM EDT RP
== END 2024-03-12 10:13 | disposition home or self-care (01) ==
LOC: HO.US 10:12
PROVIDERS: PCP Internal Medicine; Visit Provider Internal Medicine
DX: E04.2 Nontoxic multinodular goiter (principal)
CPT/HCPCS: 76536

== ENCOUNTER 2024-06-29 08:14 | Outpatient (REF) | payer MEDICARE, SELFPAY ==
[2024-06-29 10:48] LABS: Alanine Aminotransferase 26 U/L (0-31); Alkaline Phosphatase 81 U/L (39-117); Anion Gap 10 (12-20); Aspartate Amino Transferase 27 U/L (5-31); Bilirubin Total 0.3 mg/dL (0.0-1.0); Blood Urea Nitrogen 12 mg/dL (9-16); Calcium 9.3 mg/dL (8.4-10.2); Carbon Dioxide 26 mmol/L (22-29); Chloride 110 mmol/L (96-108); Cholesterol 150 mg/dL (<200); Estimated Glomerular Filt Rate > 60; Glucose Fasting 131 mg/dL (60-99); HDL Cholesterol 56 mg/dL (>40); LDL Cholesterol Calculated 65 mg/dL (<100); Potassium 4.4 mmol/L (3.3-5.1); Sodium 142 mmol/L (135-145); Triglycerides 149 mg/dL (<150)
[2024-06-29 11:01] LABS: Creatinine Urine 160.32 mg/dL; Microalbum/Creatinine Ratio Ur 36.8 ug/mg cr (<30)
== END 2024-06-29 08:15 | disposition home or self-care (01) ==
LOC: HO.HMGCLDS 08:14
PROVIDERS: PCP Internal Medicine; Visit Provider Internal Medicine
DX: E11.65 Type 2 diabetes mellitus with hyperglycemia (principal); R80.9 Proteinuria, unspecified; Z79.4 Long term (current) use of insulin; E78.5 Hyperlipidemia, unspecified
CPT/HCPCS: 36415; 80053; 80061; 82043; 82570

== ENCOUNTER 2024-07-04 15:11 | Outpatient (AMB) | payer MEDICARE, SELFPAY ==
--- NOTE | 2024-07-04 15:16 | A.OFFPC_ITS ---
Vital Signs 07/04/24 15:20 Height 5 ft 1 in Weight 265 lb BMI 50.1 BP 132/80 Blood Pressure Location Lt brachial Position Sitting Intake Visit Reasons: dm Intake Note: Patient here for a follow up DM Magnetic Observer Required: No Accompanied by: Self / Same As Patient Allergies Iodinated Contrast Media [IV CONTRAST] Allergy (Severe, Verified 07/04/24 15:42) ANAPHYLAXIS morphine [MORPHINE] Allergy (Severe, Verified 07/04/24 15:42) CARDIAC ARREST Sulfa (Sulfonamide Antibiotics) [SULFA(SULFONAMIDE ANTIBIOTICS)] Allergy (Severe, Verified 07/04/24 15:42) WASNT ABLE TO SEE, right eye blindness adhesive tape Allergy (Intermediate, Verified 07/04/24 15:42) BLISTERS amoxicillin [Augmentin] Allergy (Intermediate, Verified 07/04/24 15:42) hives ciprofloxacin [Cipro] Allergy (Intermediate, Verified 07/04/24 15:42) hives clavulanic acid [Augmentin] Allergy (Intermediate, Verified 07/04/24 15:42) hives erythromycin base [Erythromycin Base] Allergy (Intermediate, Verified 07/04/24 15:42) HIVES iodine [IODINE] Allergy (Intermediate, Verified 07/04/24 15:42) BLISTERS levofloxacin [From LEVAQUIN] Allergy (Intermediate, Verified 07/04/24 15:42) RASH lobster Allergy (Intermediate, Uncoded 07/04/24 15:42) hives pork Allergy (Intermediate, Uncoded 07/04/24 15:42) hives Medication List - Last Reconciled 07/04/24 by Taylor Powers MD atorvastatin 40 mg PO BEDTIME 90 days blood sugar diagnostic (OneTouch Verio test strips) Use 1 test strips three times a day blood-glucose meter (OneTouch Verio Flex Meter) As directed 3x/day cyclobenzaprine 10 mg PO BEDTIME PRN 10 days fenofibrate 54 mg PO DAILY 90 days gabapentin 100 mg PO TID 90 days hydrocodone-acetaminophen 7.5-325 mg 1 tab PO Q6H PRN 30 days insulin NPH and regular human 100 unit/mL (70-30) (Novolin 70-30 FlexPen U-100 Insulin) 25 units (0.25 mL) subcut BID 30 days lisinopril 2.5 mg PO DAILY 90 days metformin 1,000 mg PO BID 90 days ondansetron 8 mg PO Q8H PRN 30 days pantoprazole 40 mg PO DAILY 90 days pen needle, diabetic (1st Tier Unifine Pentips) Use 1 pen needle twice a day pen needle, diabetic (Easy Comfort Pen Spencer) Use 1 once a day [pen needles, diabetic 31 G x 6 mm As directed] [scooter As directed] semaglutide (Ozempic) 2 mg (0.75 mL) subcut QWEEK 4 weeks trospium 20 mg PO BID Tobacco use date assessed: 07/04/24 Fall risk assessment: No Falls in past year Last assessed Fall Risk: 07/04/24 Dental Screening Dental Screen Date: 07/04/24 Did you have a dental visit in the last 12 months?: Yes Did you have a dental problem in the last 6 months where you did not have access to dental care?: No Was dental information given to patient?: Patient has dentist HPI HPI Comments History of Present Illness Details The patient is a 64-year-old female presenting with significant constipation and heartburn, which started with a recent adjustment in her diabetes therapy. The patient reports severe constipation, requiring frequent use of laxatives such as Ducalax to facilitate bowel movements, which occur every three days. She attributes constipation to her current incontinence medication. Previously, on a lower dose of Ozempic, her bowel movements were more regular. She has been taking multiple antacids daily for exacerbated heartburn, unrelieved by pantoprazole, despite a diet modification. The patient's Type 2 Diabetes has been managed with insulin, metformin, and Ozempic, with an A1c currently at 6.6%. Recent changes in insulin helped maintain blood glucose levels. She favors the effects of prior lower-dose Ozempic, which adequately managed her condition. Additionally, she experiences chronic back pain, managed with gabapentin, fearful of sedation at higher doses. Lastly, she discusses a decrease in urinary incontinence due to Truspion, albeit with concurrent constipation. She is morbidly obese with a BMI of 50.1 and was advised to do diet and exercise as tolerated. 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 Diabetes mellitus Essential hypertension Lumbar degenerative disc disease Surgical History History of esophagogastroduodenoscopy (EGD) Hx of colonoscopy Status post fine needle aspiration Hx of cystoscopy History of total abdominal hysterectomy and bilateral salpingo-oophorectomy History of lumbar fusion History of carpal tunnel release History of lumbar laminectomy History of cholecystectomy History of tubal ligation Family History Father Melanoma Hypercholesteremia Substance use disorder Mother Diabetes Hypertension Bladder cancer Maternal Grandmother Cancer Family/Other FH: mental illness Social History Household Members: Spouse Housing: House Alcohol intake: never Patient Tobacco Use Status: Former Tobacco user Tobacco use type: Cigarette Years Smoked: 30 years e-Cigarette/Vaping Use: Never Used Second Hand Smoke Exposure: No service: No Current occupational status: disabled Cognitive needs: No Hearing needs: No Vision needs: Yes Questionnaire PHQ-9 Over the last 2 weeks, how often have you been bothered by any of the following problems? 1. Little interest or pleasure in doing things: not at all 2. Feeling down, depressed, or hopeless: not at all 3. Trouble falling or staying asleep, or sleeping too much: not at all 4. Feeling tired or having little energy: not at all 5. Poor appetite or overeating: not at all 6. Feeling bad about yourself - or that you are a failure or have let yourself or your family down: not at all 7. Trouble concentrating on things, such as reading the newspaper or watching television: not at all 8. Moving or speaking so slowly that other people could have noticed. Or the opposite - being so fidgety or restless that you have been moving around a lot more than usual: not at all 9. Thoughts that you would be better off or of hurting yourself in some way: not at all Total score: 0 Depression Screening Interpretation: Negative Depression Screening Done: Yes 76328 - PHQ-9 Billing: Yes Source: Developed by Drs. Cabrera Mccloud, Per Gay and colleagues, with an educational charline from [employer]. Thrive Questionnaire Date Thrive assessed: 07/04/24 I am a: Patient What is your living situation today?: I have a steady place to live Within the past 12 months, did the food you bought not last and you didn't have the money to get more?: Never true Within the past 12 months, did you worry whether your food would run out before you got money to buy more?: Never true Do you have trouble paying for medicines?: No Do you have trouble getting transportation to medical appointments?: No Do you have trouble paying your heating and electricity bill?: No Do you have trouble taking care of your child, family member or friend?: No Do you have trouble with day-to-day activities such as bathing, preparing meals, shopping, managing finances, etc.?: No Are you currently unemployed and looking for a job?: No Are you interested in more education?: No Please select the resources that you would like help with: None Currently or been in a relationship where the following occur: No concerns reported THRIVE Score: 0 AUDIT C Alcohol Use Questionnaire (AUDIT-C) 1. How often do you have a drink containing alcohol?: Never Total Score: 0 MATHEW-7 AMB Questionnaire MATHEW-7 Date MATHEW - 7 assessed: 07/04/24 Feeling nervous, anxious, or on edge: 0 = Not at all Not being able to stop or control worryin = Not at all Worrying too much about different things: 0 = Not at all Trouble relaxin = Not at all Being so restless that it is hard to sit still: 0 = Not at all Becoming easily annoyed or irritable: 0 = Not at all Feeling afraid as if something awful might happen: 0 = Not at all Total MATHEW-7 score (0-4 normal; 5-9 mild; 10-14 moderate; 15-21 severe): 0 Source: Developed by Leilani Chiang Kurt Kroenke and colleagues, with an educational charline from [employer]. MATHEW-7 Assessment Billing MATHEW-7 Assessment Tool: MATHEW-7 Assessment 03052 Review of Systems Const All systems reviewed & are unremarkable except as noted in HPI and below Card Denies chest pain at rest, Denies chest pain with activity, Denies edema, Denies irregular heart rhythm, Denies claudication, Denies dyspnea, Denies dyspnea on exertion, Denies orthopnea, Denies paroxysmal nocturnal dyspnea and Denies slow heart rate Resp Denies cough, Denies dyspnea and Denies dyspnea on exertion GI Denies abdominal pain, Denies change in bowel habits, Denies excessive flatus, Denies nausea and Denies vomiting Denies urinary incontinence, Denies urinary hesitancy and Denies urinary urgency Physical exam (Primary Care) Vital Signs: Last Vital Signs BP 132/80 07/04/24 15:20 BMI result Body Mass Index 50.1 BMI Assessment/Plan discussion: High BMI High, discussed plan: lifestyle, weight reduction, dietary and physical activity Tobacco/Smoking Status: Tobacco use Status Tobacco use date assessed 07/04/24 07/04/24 15:20 Patient Tobacco Use Status Former Tobacco user 07/04/24 15:20 Tobacco use type Cigarette 07/04/24 15:20 e-Cigarette/Vaping Use Never Used 07/04/24 15:20 PHQ-9: PHQ-9 Score PHQ-9: Total score 0 07/04/24 15:45 Depression Screening Interpretation: Negative Thrive Assessment: Date of Thrive Assessment Date Thrive assessed 07/04/24 07/04/24 15:20 Currently or been in a relationship where the following occur: No concerns reported Resp Effort & Inspection: normal respiratory effort Auscultation: clear to auscultation bilaterally Cardio Jugular venous distension: no JVD Rate: regular rate Rhythm: regular rhythm Heart sounds: S1 normal heart sound present and S2 normal heart sound present Extrem General: Yes full ROM Results AMB Hemoglobin A1c AMB Hemoglobin A1c 6.6 % Last Edit by RAEANN Murillo on 07/04/24 15:3 7 Results Reviewed Results Reviewed: Laboratory Last Values Hgb A1c (Clinic) 6.6 % (4.0-6.0) H 07/04/24 15:15 Coding Level of Care Code Est Pt Level 4 (18471) Complex EM visit Add On G2211 Diagnoses Type 2 diabetes mellitus with hyperglycemia, with long-term current use of insulin E11.65; Z79.4 Diabetes mellitus complication status: with hyperglycemia Morbid obesity with BMI of 50.0-59.9, adult E66.01; Z68.43 HTN (hypertension) I10 HLD (hyperlipidemia) E78.5 Gastroesophageal reflux disease, unspecified whether esophagitis present K21.9 Esophagitis presence: esophagitis presence not specified Chronic idiopathic constipation K59.04 Additional Codes MATHEW-7 Assessment Billing - MATHEW-7 Assessment Tool: MATHEW-7 Assessment 91762 ([id number]) PHQ-9 - 86226 - PHQ-9 Billing: Yes ([id number]) Time Spent (min) 22 Assessment & Plan Assessment & Plan (1) Type 2 diabetes mellitus, with long-term current use of insulin: Code(s): E11.9 - Type 2 diabetes mellitus without complications; Z79.4 - exterminator helper (current) use of insulin Category: Medical Qualifiers: Diabetes mellitus complication status: with hyperglycemia Qualified Code(s): E11.65 - Type 2 diabetes mellitus with hyperglycemia; Z79.4 - detention (current) use of insulin (2) Morbid obesity with BMI of 50.0-59.9, adult: Code(s): E66.01 - Morbid (severe) obesity due to excess calories; Z68.43 - Body mass index [BMI] 50.0-59.9, adult Category: Medical (3) HTN (hypertension): Code(s): I10 - Essential (primary) hypertension Category: Medical (4) HLD (hyperlipidemia): Code(s): E78.5 - Hyperlipidemia, unspecified Category: Medical (5) GERD (gastroesophageal reflux disease): Comment: Continue PPI avoid culprits Code(s): K21.9 - Gastro-esophageal reflux disease without esophagitis Category: Medical Qualifiers: Esophagitis presence: esophagitis presence not specified Qualified Code(s): K21.9 - Gastro-esophageal reflux disease without esophagitis (6) Chronic idiopathic constipation: Code(s): K59.04 - Chronic idiopathic constipation Category: Medical Plan - Adjust insulin doses as necessary to control blood glucose levels. - Reduce Ozempic to previously effective dosing due to adverse effects. - Investigate alternative GERD management given current reflux medication inefficacy. - Consider altering or lowering dosage of incontinence medication to mitigate constipation. - Trial increasing gabapentin cautiously for chronic pain management with monitoring of sedation effects. Patient was informed and verbally consented to the use of an ambient scribe for clinic note documentation during this visit. During the visit, I discussed with the patient the various changes to her medication regimen due to both the side effects (mainly constipation and exacerbated GERD symptoms) and the inefficacy observed with the current doses. We reviewed the importance of maintaining her diabetes management goals, acknowledging her A1c achievement of 6.6%. I recommended returning to a lesser dose of Ozempic to reduce severe constipation, noting her previously reported comfort at that level. We also discussed alternative treatments for GERD, emphasizing the need for possible intervention by gastroenterology if symptoms persist, despite her diet modification efforts. We evaluated options for addressing chronic back pain more effectively with gabapentin adjustments, while minimizing potential side effects such as sedation. The patient was amenable to these changes, expressing relief at retaking a better-tolerated medication re gimen. Orders: Orders AMB Hemoglobin A1c Today E11.9 - Type 2 diabetes mellitus without complications Lipid Panel 4 Months E78.5 - Hyperlipidemia, unspecified Microalbumin, Random (w Creat) 4 Months R80.9 - Proteinuria, unspecified Comprehensive Hagerman. Panel Fast 4 Months E11.65 - Type 2 diabetes mellitus with hyperglycemia, Z79.4 - exterminator helper (current) use of insulin Vitamin D 25-OH Total 4 Months E55.9 - Vitamin D deficiency, unspecified Vitamin B12 and Folate 4 Months E53.8 - Deficiency of other specified B group vitamins Thyroid Stimulating Hormone 4 Months E04.2 - Nontoxic multinodular goiter Medications: New dexlansoprazole 30 mg PO DAILY 90 days 90 caps 1RF metformin 500 mg PO BID 90 days 180 tabs 0RF semaglutide (Ozempic) 1 mg (0.75 mL) subcut QWEEK 4 weeks 3 mL 6RF Changed From gabapentin 100 mg PO TID 90 days 270 caps 1RF To gabapentin 200 mg (2 x 100 mg) PO TID 90 days 540 caps 1RF Discontinued pantoprazole Discontinued Reason: Patient Completed Course 40 mg PO DAILY 90 days 90 tabs 0RF metformin Discontinued Reason: Patient Completed Course 1,000 mg PO BID 90 days 180 tabs 3RF semaglutide (Ozempic) Discontinued Reason: Patient Completed Course 2 mg (0.75 mL) subcut QWEEK 4 weeks 3 mL 0RF Patient Instructions: - Take prescribed lower dose of Ozempic as directed. - Monitor blood sugar levels daily and report any significant changes. - Take adjusted dose of gabapentin as needed, being mindful of any signs of sedation. - Follow dietary modifications to manage GERD symptoms, and log foods that exacerbate symptoms. - Use [id number] antacids sparingly and report if additional prescriptions for GERD management are needed. - Return to the clinic for assessment of symptoms if they worsen or new symptoms appear.
[2024-07-04 15:20] VITALS: BP 132/80; BMI 50.1
--- OUTSIDE RECORDS SUMMARY | 2024-07-04 17:36 | XMS_ITS | Clinical Summary ---
Author Organization [facility] Address [address] [place] [address] Care Team Providers Care Guard Sergeant Name Role Phone Unavailable Primary Care Provider Unavailabl e Social History Tobacco Use Types Packs/Day Years Used Date Smoking Tobacco: Never Assessed Sex and Gender Information Value Date Recorded Sex Assigned at Not on file Gender Identity Not on file Sexual Orientation Not on file Plan of Treatment Not on file
== END 2024-07-04 16:03 | disposition home or self-care (01) ==
PROVIDERS: PCP Internal Medicine; Visit Provider Internal Medicine
DX: E11.65 Type 2 diabetes mellitus with hyperglycemia (principal); Z79.4 Long term (current) use of insulin; E66.01 Morbid (severe) obesity due to excess calories; Z68.43 Body mass index [BMI] 50.0-59.9, adult; I10 Essential (primary) hypertension; E78.5 Hyperlipidemia, unspecified; K21.9 Gastro-esophageal reflux disease without esophagitis; K59.04 Chronic idiopathic constipation; E11.9 Type 2 diabetes mellitus without complications

== ENCOUNTER → 2024-07-04 15:11 | Outpatient (BNVA) | payer MEDICARE, SELFPAY | PROVIDERS: PCP Internal Medicine; Visit Provider Internal Medicine | DX: E11.65 Type 2 diabetes mellitus with hyperglycemia (principal); E66.01 Morbid (severe) obesity due to excess calories; Z68.43 Body mass index [BMI] 50.0-59.9, adult; E78.5 Hyperlipidemia, unspecified; I10 Essential (primary) hypertension; K59.04 Chronic idiopathic constipation; Z79.4 Long term (current) use of insulin | CPT/HCPCS: 83036; 96127; 99212 ==

== ENCOUNTER 2024-07-30 11:26 | Outpatient (REF) | payer MEDICARE, SELFPAY ==
--- OUTSIDE RECORDS SUMMARY | 2024-07-30 11:29 | XMS_ITS | Clinical Summary ---
Author Organization [facility] Address [address] [place] [address] Care Team Providers Care Machine Filler Servicer Name Role Phone Unavailable Primary Care Provider Unavailabl e Social History Tobacco Use Types Packs/Day Years Used Date Smoking Tobacco: Never Assessed Sex and Gender Information Value Date Recorded Sex Assigned at Not on file Gender Identity Not on file Sexual Orientation Not on file Plan of Treatment Not on file
[2024-07-30 12:26] LABS: Influenza A PCR NEGATIVE (Negative); Influenza B PCR NEGATIVE (Negative); Resp Syncy Virus RNA Qual PCR NEGATIVE (Negative); SARS COV2 PCR INHOUSE NEGATIVE (Negative)
== END 2024-07-30 11:27 | disposition home or self-care (01) ==
LOC: HO.LAB 11:26
PROVIDERS: PCP Internal Medicine; Visit Provider Internal Medicine
DX: R09.89 Other specified symptoms and signs involving the circulatory and respiratory systems (principal)
CPT/HCPCS: 0241U

== ENCOUNTER 2024-09-03 11:53 | Outpatient (REF) | payer MEDICARE, SELFPAY ==
[2024-09-03 13:38] LABS: Appearance Urine Clear; Color Urine Yellow; Glucose Urine UA Negative (Negative); Leukocyte Esterase Urine Small (1+) (Negative); Nitrite Urine Negative (Negative); Specific Gravity - Urine 1.015 (1.005-1.025); UMIC TRIGGER UACC YES; Urine Blood Negative (Negative); Urine Ketones Negative (Negative); Urine Protein Negative (Neg-Trace)
[2024-09-03 13:47] LABS: Bacteria Urine None Seen (None Seen); Hyaline Casts Urine 0-2 /LPF (0-2); RBC Urine 0-2 /HPF (0-2); Squamous Epithelial Cell Urine 0-2 /HPF (0-2); UACC Culture Trigger YES
== END 2024-09-03 11:54 | disposition home or self-care (01) ==
LOC: HO.HMGCLDS 11:53
PROVIDERS: PCP Internal Medicine; Visit Provider Internal Medicine
DX: R30.0 Dysuria (principal)
CPT/HCPCS: 81001; 87086; 87088; 87186

== ENCOUNTER 2024-10-09 10:40 | Outpatient (AMB) | payer MEDICARE, SELFPAY ==
--- NOTE | 2024-10-09 10:55 | MHC.OFFVIS ---
Vital Signs 10/09/24 10:57 Height 5 ft 1 in BP 141/64 H Blood Pressure Location Lt brachial Position Sitting Pulse 76 Pulse Oximetry (%) 94 Oxygen Delivery Method Room Air Intake Visit Reasons: constipation and GERD/Christine vaz santosh 09/03/21 Intake Note: Patient complex follow up for GERD and Constipation./christine frost 09/03/2021 and last Colonoscopy by Dr. Cade was 08/21/2021 with 10 yrs recall. Patient cc: NGERD, Constipation/nauseas due the Ozempic, abdominal pain with bloating, and always tired. 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 Accompanied by: Self / Same As Patient Allergies Iodinated Contrast Media [IV CONTRAST] Allergy (Severe, Verified 10/09/24 10:55) ANAPHYLAXIS morphine [MORPHINE] Allergy (Severe, Verified 10/09/24 10:55) CARDIAC ARREST Sulfa (Sulfonamide Antibiotics) [SULFA(SULFONAMIDE ANTIBIOTICS)] Allergy (Severe, Verified 10/09/24 10:55) WASNT ABLE TO SEE, right eye blindness adhesive tape Allergy (Intermediate, Verified 10/09/24 10:55) BLISTERS amoxicillin [Augmentin] Allergy (Intermediate, Verified 10/09/24 10:55) hives ciprofloxacin [Cipro] Allergy (Intermediate, Verified 10/09/24 10:55) hives clavulanic acid [Augmentin] Allergy (Intermediate, Verified 10/09/24 10:55) hives erythromycin base [Erythromycin Base] Allergy (Intermediate, Verified 10/09/24 10:55) HIVES iodine [IODINE] Allergy (Intermediate, Verified 10/09/24 10:55) BLISTERS levofloxacin [From LEVAQUIN] Allergy (Intermediate, Verified 10/09/24 10:55) RASH Penicillins Allergy (Unknown, Verified 10/09/24 11:29) stiff lobster Allergy (Intermediate, Uncoded 07/04/24 15:42) hives pork Allergy (Intermediate, Uncoded 07/04/24 15:42) hives Medication List - Last Reconciled 10/09/24 by Liana Zamorano CNP atorvastatin 40 mg PO BEDTIME 90 days blood sugar diagnostic (OneTouch Verio test strips) Use 1 test strips three times a day blood-glucose meter (OneTouch Verio Flex Meter) As directed 3x/day cyclobenzaprine 10 mg PO BEDTIME PRN 10 days dexlansoprazole 30 mg PO DAILY 90 days doxycycline hyclate 100 mg PO BID 5 days famotidine 20 mg PO DAILY PRN fenofibrate 54 mg PO DAILY 90 days fluconazole 150 mg PO Q3D 2 doses gabapentin 200 mg (2 x 100 mg) PO TID 90 days hydrocodone-acetaminophen 7.5-325 mg 1 tab PO Q6H PRN 30 days insulin NPH and regular human 100 unit/mL (70-30) (Novolin 70-30 FlexPen U-100 Insulin) 25 units (0.25 mL) subcut BID 30 days lisinopril 2.5 mg PO DAILY 90 days meloxicam 15 mg PO DAILY PRN 30 days metformin 500 mg PO TID 90 days metformin 1,000 mg PO BID 90 days multivitamin 1 tab PO DAILY nitrofurantoin macrocrystal 100 mg PO BID 5 days ondansetron 8 mg PO Q8H PRN 30 days pantoprazole 40 mg PO BID pen needle, diabetic (1st Tier Unifine Pentips) Use 1 pen needle twice a day pen needle, diabetic (Easy Comfort [place]) Use 1 once a day [pen needles, diabetic 31 G x 6 mm As directed] [scooter As directed] semaglutide (Ozempic) 1 mg (0.75 mL) subcut QWEEK 4 weeks trospium 20 mg PO BID HPI HPI constipation and GERD/Christine vaz [facility] 09/03/21: Details: Patient is a 64-year-old female with PMH of morbid obesity, DMII, hyperlipidemia, hypertension, anxiety and GERD. Last visit with CITLALLI Vasquez 09/03/2021 for follow-up after colonoscopy. Pt is here today for follow up. She expresses frustration about provider starting visit 15 mintues late. The visit began with the patient presenting as abrupt and terse, but communication improved after her feelings were acknowledged. She reports pyrosis daily. She was taking pantoprazole 40 mg once daily with relief up until approx 2 months ago. She stopped pantoprazole 3 weeks ago due to lack of effectiveness. States PCP prescribed a medication that was not approved by pharmacy. Shares instead she was been taking pepcid 20 mg once daily with mutilple doses of Rolaids and Pepto-Bismol throughout the day. She believes exacerbation may be partly related to Ozempic that was started two years ago. Shares Ozempic also causes constipation and does require laxative for BM. States she plans to discuss discontinuation during next PCP visit. Associated symptoms: regurgitation Aggravating factors: spicy foods + as above Alleviating attempts:eating bread, avoid triggers Patient denies: fever/chills, n/v, appetite changes, unintentional wt loss, ab pain, dysphasia, or melena/hematochezia. Social hx: denies ETOH use recreational drug use former smoker, cessation 32 years ago -family hx as below -personal hx of CA of endometrial CA s/p total hysterectomy -denies significant cardiopulmonary history -tolerated anesthesia in the past without difficulty. 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 Diabetes mellitus Essential hypertension Lumbar degenerative disc disease Surgical History History of esophagogastroduodenoscopy (EGD) Hx of colonoscopy Status post fine needle aspiration Hx of cystoscopy History of total abdominal hysterectomy and bilateral salpingo-oophorectomy History of lumbar fusion History of carpal tunnel release History of lumbar laminectomy History of cholecystectomy History of tubal ligation Family History Father Melanoma Hypercholesteremia Substance use disorder Mother Diabetes Hypertension Bladder cancer Maternal Grandmother Cancer Family/Other FH: mental illness Social History Household Members: Spouse Housing: House Alcohol intake: never Patient Tobacco Use Status: Former Tobacco user Tobacco use type: Cigarette Years Smoked: 30 years e-Cigarette/Vaping Use: Never Used Second Hand Smoke Exposure: No service: No Current occupational status: disabled Cognitive needs: No Hearing needs: No Vision needs: Yes Review of Systems Const Reports as per HPI ENT Reports as per HPI Card Reports as per HPI Resp Reports as per HPI GI Reports as per HPI Reports as per HPI Physical Exam Vital Signs: Last Vital Signs Pulse 76 10/09/24 10:57 BP 141/64 H 10/09/24 10:57 Pulse Ox 94 10/09/24 10:57 Oxygen Delivery Method Room Air 10/09/24 10:57 Const General: healthy appearing, no acute distress and well developed Nutritional Appearance: obese Orientation/consciousness: patient oriented x3 HEENT Head: Yes normal to inspection, Yes normocephalic and Yes atraumatic Face and sinus: Yes normal facial exam Eyes General: appearance normal, both eyes and all related structures Neck Neck: Yes normal visual inspection Resp Effort & Inspection: normal respiratory effort, able to speak in complete sentences, no tracheal deviation and symmetric chest movement Auscultation: clear to auscultation bilaterally Cardio Jugular venous distension: no JVD Rate: regular rate Rhythm: regular rhythm Heart sounds: S1 normal heart sound present, S2 normal heart sound present, no gallops and no murmurs GI Inspection: Yes normal to inspection, No distended and Yes obesity Palpation (GI): Soft to palpation, not firm, nontender and No hepatosplenomegaly present Auscultation: normal bowel sounds Abdomen image: 1. surgical scar Neuro General: patient oriented x3 Gait exam (Neuro): Normal gait present Psych Appearance: grossly normal Mental Status: mental status grossly normal Speech and movement: Normal speech and movement present Affect: normal affect Attitude: cooperative Thought process: Normal thought process present Thought content: Normal thought content present Insight: Good insight present (Psych) Judgement: Good judgement present (Psych) Results Reviewed Results Reviewed: Date of Service: 08/21/21 Narrative: Pre-op diagnosis: Colon cancer screening, colo- vesical fistula Post-op diagnosis:?other ( diverticulosis, hemorrhoids) Procedure: COLONOSCOPY TILL CECUM WITH BIOPSIES Procedure: The patient was placed in the left lateral decubitis position and pre-procedure medications were administered. After a digital rectal examination of the ano-rectum, the video colonoscope was inserted into the rectum and advanced through the colon to the cecum. The colonoscope was slowly withdrawn in a retrograde panoramic fashion and the colon mucosa was carefully examined including a retroflexed view of the rectum. Findings and interventions are described below. Procedure Difficulty: Without difficulty Findings: Terminal Ileum: Distal 10 cms? was examined and appeared normal. Cecum:? Normal. ? Prominent ileocecal valve -? biopsies were obtained Ascending Colon:? ? Slightly nodular appearing mucosa -? random biopsies were obtained to check for microscopic colitis Transverse Colon: ? moderate diverticulosis Descending Colon:? Slightly nodular appearing mucosa -? random biopsies were obtained to check for microscopic colitis Sigmoid Colon:? Severe? diverticulosis with luminal narrowing at 30 cms navigated with some difficuty due to a sharp turn. Rectum:? Normal Ano-rectum:? Small internal hemorrhoids Colon preparation:? Good? Impression and Post Procedure Diagnosis: Colonoscopy Findings: No polyps were detected No fistulous opening was noted - likely hidden among colonic folds. Moderate? to severe diverticulosis seen in the left and transverse colon Severe? diverticulosis with luminal narrowing at 30 cms navigated with some difficuty due to a sharp turn. Small hemorrhoids on retroflexed exam. Plan: Await pathology results Consider Barium enema to visualize location of [place]-vesical fistula - can check with her surgeons if they prefer to schedule in [place]. Repeat Colonoscopy in 10 years. Pathology Collected: 08/21/21 Received: 08/21/21 Diagnosis A. Colon, right, biopsy: Colonic mucosa with no specific change; no evidence of microscopic colitis, granulomas, or dysplasia. B. Ileocecal biopsy: Colonic mucosa with minor crypt distortion, otherwise no specific change; no evidence of colitis, granulomas, or dysplasia. C. Colon, left, biopsy: Colonic mucosa with no specific change; no evidence of microscopic colitis, granulomas, or dysplasia EGD (pulled from historical visits) 07/18/2012 reflux with mild esophagitis and multiple gastric polyps Pathology: Fundic gland polyp Assessment & Plan Assessment & Plan (1) GERD (gastroesophageal reflux disease): Comment: 07/18/2012 EGD-reflux with mild esophagitis and multiple gastric polyps Code(s): K21.9 - Gastro-esophageal reflux disease without esophagitis Category: Medical Qualifiers: Esophagitis bleeding: without hemorrhage Esophagitis presence: with esophagitis Qualified Code(s): K21.00 - Gastro-esophageal reflux disease with esophagitis, without bleeding Plan: Recent exacerbation in symptoms. Last EGD was completed in 2012 with findings as above. Advised repeating EGD, she is agreeable. We will trial increasing pantoprazole to 40 mg twice daily. She can also use Pepcid for breakthrough symptoms. Instructed to take pantoprazole as prescribed, approximately 30-60 minutes before meals. Education on GERD prevention-Advised against heavy meals. Encouraged small frequent meals VS large meals, remaining upright after meals x 2-3 hours, avoid late night eating/spicy foods/caffeine/alcohol/known triggers and tight fitting clothes Plan Follow-up after EGD or sooner as needed Time: I spent a total of 45 minutes on the date of encounter which includes: Preparing to see the patient (reviewed previous documentation, test results and medical history) Performing a medically appropriate exam and/or evaluation Ordering medications, tests, and procedures Documenting clinical information in the health record Medications: New famotidine Take one tablet daily as needed for acid reflux 20 mg PO DAILY PRN 90 tabs 1RF GERD pantoprazole Take 1 tablet twice daily. 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
[2024-10-09 10:57] VITALS: BP 141/64; PULSE 76; O2SAT 94
--- OUTSIDE RECORDS SUMMARY | 2024-10-09 12:16 | XMS_ITS | Clinical Summary ---
Author Organization [facility] Address [address] [place] [address] Care Team Providers Care Irrigation Manager Name Role Phone Unavailable Primary Care Provider Unavailabl e Social History Tobacco Use Types Packs/Day Years Used Date Smoking Tobacco: Never Assessed Sex and Gender Information Value Date Recorded Sex Assigned at Not on file Gender Identity Not on file Sexual Orientation Not on file Plan of Treatment Not on file
== END 2024-10-09 12:06 | disposition home or self-care (01) ==
LOC: HO.HGI 10:40
PROVIDERS: PCP Internal Medicine; Visit Provider Nurse Practitioner Family
DX: K21.00 Gastro-esophageal reflux disease with esophagitis, without bleeding (principal); K59.00 Constipation, unspecified
CPT/HCPCS: 99215

== ENCOUNTER → 2024-10-09 10:40 | Outpatient (BNVA) | payer MEDICARE, SELFPAY | PROVIDERS: PCP Internal Medicine; Visit Provider Nurse Practitioner Family | DX: K21.00 Gastro-esophageal reflux disease with esophagitis, without bleeding (principal); K59.00 Constipation, unspecified; R10.9 Unspecified abdominal pain; Z79.899 Other long term (current) drug therapy | CPT/HCPCS: 99212 ==

== ENCOUNTER 2024-11-19 08:07 | Outpatient (REF) | payer MEDICARE, SELFPAY ==
--- OUTSIDE RECORDS SUMMARY | 2024-11-19 08:12 | XMS_ITS | Clinical Summary ---
Author Organization [facility] Address [address] [place] [address] Care Team Providers Care Cook Boat Name Role Phone Unavailable Primary Care Provider Unavailabl e Social History Tobacco Use Types Packs/Day Years Used Date Smoking Tobacco: Never Assessed Sex and Gender Information Value Date Recorded Sex Assigned at Not on file Gender Identity Not on file Sexual Orientation Not on file Plan of Treatment Not on file
[2024-11-19 10:48] LABS: Alanine Aminotransferase 24 U/L (0-31); Albumin Level 4.3 g/dL (3.5-5.0); Alkaline Phosphatase 72 U/L (39-117); Anion Gap 11 (12-20); Aspartate Amino Transferase 26 U/L (5-31); Bilirubin Total 0.3 mg/dL (0.0-1.0); Blood Urea Nitrogen 23 mg/dL (9-16); Calcium 9.3 mg/dL (8.4-10.2); Carbon Dioxide 27 mmol/L (22-29); Chloride 108 mmol/L (96-108); Cholesterol 191 mg/dL (<200); Estimated Glomerular Filt Rate 50; Glucose Fasting 168 mg/dL (60-99); HDL Cholesterol 59 mg/dL (>40); LDL Cholesterol Calculated 99 mg/dL (<100); Potassium 4.5 mmol/L (3.3-5.1); Sodium 141 mmol/L (135-145); Total Protein 6.9 g/dL (6.5-8.0); Triglycerides 168 mg/dL (<150)
[2024-11-19 10:51] LABS: Creatinine Urine 75.02 mg/dL; Microalbum/Creatinine Ratio Ur 11.9 ug/mg cr (<30)
[2024-11-19 11:05] LABS: Thyroid Stimulating Hormone 1.82 uIU/mL (0.32-4.0); Vitamin D 25-OH Total 47.3 ng/mL (>30)
== END 2024-11-19 08:08 | disposition home or self-care (01) ==
LOC: HO.HMGCLDS 08:07
PROVIDERS: PCP Internal Medicine; Visit Provider Internal Medicine
DX: E55.9 Vitamin D deficiency, unspecified (principal); R80.9 Proteinuria, unspecified; E78.5 Hyperlipidemia, unspecified; E04.2 Nontoxic multinodular goiter; Z79.4 Long term (current) use of insulin; E11.65 Type 2 diabetes mellitus with hyperglycemia
CPT/HCPCS: 36415; 80053; 80061; 82043; 82306; 82570; 84443

== ENCOUNTER 2024-11-21 13:30 | Outpatient (AMB) | payer MEDICARE, SELFPAY ==
--- NOTE | 2024-11-21 13:34 | A.OFFPC_ITS ---
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 Accompanied by: Self / Same As Patient Allergies Iodinated Contrast Media [IV CONTRAST] Allergy (Severe, Verified 11/21/24 13:49) ANAPHYLAXIS morphine [MORPHINE] Allergy (Severe, Verified 11/21/24 13:49) CARDIAC ARREST Sulfa (Sulfonamide Antibiotics) [SULFA(SULFONAMIDE ANTIBIOTICS)] Allergy (Severe, Verified 11/21/24 13:49) WASNT ABLE TO SEE, right eye blindness adhesive tape Allergy (Intermediate, Verified 11/21/24 13:49) BLISTERS amoxicillin [Augmentin] Allergy (Intermediate, Verified 11/21/24 13:49) hives ciprofloxacin [Cipro] Allergy (Intermediate, Verified 11/21/24 13:49) hives clavulanic acid [Augmentin] Allergy (Intermediate, Verified 11/21/24 13:49) hives erythromycin base [Erythromycin Base] Allergy (Intermediate, Verified 11/21/24 13:49) HIVES iodine [IODINE] Allergy (Intermediate, Verified 11/21/24 13:49) BLISTERS levofloxacin [From LEVAQUIN] Allergy (Intermediate, Verified 11/21/24 13:49) RASH Penicillins Allergy (Unknown, Verified 11/21/24 13:49) stiff semaglutide [From Ozempic] Adverse Reaction (Severe, Verified 11/21/24 13:49) abdominal pain, constipation lobster Allergy (Intermediate, Uncoded 11/21/24 13:49) hives pork Allergy (Intermediate, Uncoded 11/21/24 13:49) hives Medication List - Last Reconciled 11/21/24 by Taylor Powers MD atorvastatin 40 mg PO BEDTIME 90 days blood sugar diagnostic (OneTouch Verio test strips) Use 1 test strips three times a day blood-glucose meter (OneTouch Verio Flex Meter) As directed 3x/day cyclobenzaprine 10 mg PO BEDTIME PRN 10 days dexlansoprazole 30 mg PO DAILY 90 days doxycycline hyclate 100 mg PO BID 5 days famotidine 20 mg PO DAILY PRN fenofibrate 54 mg PO DAILY 90 days gabapentin 200 mg (2 x 100 mg) PO TID 90 days hydrocodone-acetaminophen 10-325 mg 1 tab PO Q8H PRN 30 days insulin NPH and regular human 100 unit/mL (70-30) (Novolin 70-30 FlexPen U-100 Insulin) 25 units (0.25 mL) subcut BID 30 days lisinopril 2.5 mg PO DAILY 90 days meloxicam 15 mg PO DAILY PRN 30 days metformin 1,000 mg PO BID 90 days multivitamin 1 tab PO DAILY ondansetron 8 mg PO Q8H PRN 30 days pantoprazole 40 mg PO BID pen needle, diabetic (1st Tier Unifine Pentips) Use 1 pen needle twice a day pen needle, diabetic (Easy Comfort Pen [place]) Use 1 once a day [pen needles, diabetic 31 G x 6 mm As directed] [scooter As directed] trospium 20 mg PO BID Tobacco use date assessed: 07/04/24 Fall risk assessment: No Falls in past year Last assessed Fall Risk: 11/21/24 Dental Screening Dental Screen Date: 07/04/24 HPI HPI Comments History of Present Illness Details The patient is a 64-year-old female presenting for management of Type 2 Diabetes Mellitus and hyperlipidemia, along with concerns about constipation and heel pain. The patient has a history of Type 2 Diabetes Mellitus, with a recent A1c of 6.3%. She previously used Ozempic until October 30, experiencing side effects such as abdominal pain and constipation, and has since stopped the medication. Her fasting blood glucose levels have increased to 120s and 130s in the morning, compared to previous levels in the 90s and 80s. The patient reports hyperlipidemia, with a recent increase in LDL cholesterol from 65 mg/dL to the 90s. She is currently on atorvastatin 40 mg and fenofibrate 54 mg, although she occasionally forgets to take the latter. The patient experiences constipation, moving her bowels every three days with the aid of laxatives, a change from her previous pattern of three times a day before starting Ozempic. The patient has a history of diverticulosis, which affects her dietary choices, such as peeling apples to avoid exacerbating the condition. The patient reports heel pain, particularly after increasing her daily steps from 2,000 to over 4,000. She is flatfooted and finds that shoes with arches exacerbate her discomfort. The patient has a history of thyroid nodules and is due for an annual thyroid scan in February. She also has a family history of thyroid issues, with her daughter and sister having similar conditions. The patient has a history of bladder cancer and underwent a cystoscopy, which showed no current cancer but confirmed the presence of a fistula. She has opted against surgical intervention for the fistula unless further complications arise. Preventative care measures discussed include scheduling a mammogram and bone density screening, as well as updating her pneumonia vaccination. 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 Diabetes mellitus Essential hypertension Lumbar degenerative disc disease Surgical History History of esophagogastroduodenoscopy (EGD) Hx of colonoscopy Status post fine needle aspiration Hx of cystoscopy History of total abdominal hysterectomy and bilateral salpingo-oophorectomy History of lumbar fusion History of carpal tunnel release History of lumbar laminectomy History of cholecystectomy History of tubal ligation Family History Father Melanoma Hypercholesteremia Substance use disorder Mother Diabetes Hypertension Bladder cancer Maternal Grandmother Cancer Family/Other FH: mental illness Social History Household Members: Spouse Housing: House Alcohol intake: never Patient Tobacco Use Status: Former Tobacco user Tobacco use type: Cigarette Years Smoked: 30 years e-Cigarette/Vaping Use: Never Used Second Hand Smoke Exposure: No service: No Current occupational status: disabled Cognitive needs: No Hearing needs: No Vision needs: Yes Questionnaire PHQ-9 Over the last 2 weeks, how often have you been bothered by any of the following problems? 1. Little interest or pleasure in doing things: not at all Source: Developed by Drs. Cabrera L. RogersLeilani higgins Kurt Kroenke and colleagues, with an educational charline from [employer]. Thrive Questionnaire Date Thrive assessed: 07/04/24 I am a: Patient What is your living situation today?: I have a steady place to live Within the past 12 months, did the food you bought not last and you didn't have the money to get more?: I choose not to answer this question Within the past 12 months, did you worry whether your food would run out before you got money to buy more?: I choose not to answer this question Do you have trouble paying for medicines?: I choose not to answer this question Do you have trouble getting transportation to medical appointments?: I choose not to answer this question Do you have trouble paying your heating and electricity bill?: I choose not to answer this question Do you have trouble taking care of your child, family member or friend?: I choose not to answer this question Do you have trouble with day-to-day activities such as bathing, preparing meals, shopping, managing finances, etc.?: I choose not to answer this question Are you currently unemployed and looking for a job?: I choose not to answer this question Are you interested in more education?: I choose not to answer this question THRIVE Score: 0 AUDIT C Alcohol Use Questionnaire (AUDIT-C) 1. How often do you have a drink containing alcohol?: Never Total Score: 0 MATHEW-7 AMB Questionnaire MATHEW-7 Date MATHEW - 7 assessed: 07/04/24 Source: Developed by Drs. Cabrera Mccloud, Per Gay and colleagues, with an educational charline from [employer]. Review of Systems Const All systems reviewed & are unremarkable except as noted in HPI and below Card Denies chest pain at rest, Denies chest pain with activity, Denies edema, Denies irregular heart rhythm, Denies claudication, Denies dyspnea, Denies dyspnea on exertion, Denies orthopnea, Denies paroxysmal nocturnal dyspnea and Denies slow heart rate Resp Denies cough, Denies dyspnea and Denies dyspnea on exertion GI Denies abdominal pain, Denies change in bowel habits, Denies excessive flatus, Denies nausea and Denies vomiting Denies urinary incontinence, Denies urinary hesitancy and Denies urinary urgency Physical exam (Primary Care) Vital Signs: Last Vital Signs BP 138/90 H 11/21/24 13:38 BMI result Body Mass Index 50.7 BMI Assessment/Plan discussion: High BMI High, discussed plan: lifestyle, weight reduction, dietary and physical activity Tobacco/Smoking Status: Tobacco use Status Tobacco use date assessed 07/04/24 11/21/24 13:36 Patient Tobacco Use Status Former Tobacco user 11/21/24 13:36 Tobacco use type Cigarette 11/21/24 13:36 e-Cigarette/Vaping Use Never Used 11/21/24 13:36 Thrive Assessment: Date of Thrive Assessment Date Thrive assessed 07/04/24 11/21/24 13:36 Neck Thyroid: diffusely enlarged Resp Effort & Inspection: normal respiratory effort Auscultation: clear to auscultation bilaterally Cardio Jugular venous distension: no JVD Rate: regular rate Rhythm: regular rhythm Heart sounds: S1 normal heart sound present and S2 normal heart sound present Extrem General: Yes full ROM Results AMB Hemoglobin A1c AMB Hemoglobin A1c 6.3 % Last Edit by RAEANN Murillo on 11/21/24 13:4 6 Results Reviewed Results Reviewed: Laboratory Last Values Hgb A1c (Clinic) 6.3 % (4.0-6.0) H 11/21/24 13:33 Coding Level of Care Code Est Pt Level 4 (26948) Complex EM visit Add On G2211 Diagnoses Left foot pain M79.672 Morbid obesity with BMI of 50.0-59.9, adult E66.01; Z68.43 Type 2 diabetes mellitus with hyperglycemia, with long-term current use of insulin E11.65; Z79.4 Diabetes mellitus complication status: with hyperglycemia Multinodular thyroid E04.2 Essential hypertension I10 Mixed hyperlipidemia E78.2 Time Spent (min) 25 Assessment & Plan Assessment & Plan (1) Left foot pain: Code(s): M79.672 - Pain in left foot Category: Medical (2) Morbid obesity with BMI of 50.0-59.9, adult: Code(s): E66.01 - Morbid (severe) obesity due to excess calories; Z68.43 - Body mass index [BMI] 50.0-59.9, adult Category: Medical (3) Type 2 diabetes mellitus, with long-term current use of insulin: Code(s): E11.9 - Type 2 diabetes mellitus without complications; Z79.4 - penitentiary (current) use of insulin Category: Medical Qualifiers: Diabetes mellitus complication status: with hyperglycemia Qualified Code(s): E11.65 - Type 2 diabetes mellitus with hyperglycemia; Z79.4 - penitentiary (current) use of insulin (4) Multinodular thyroid: Code(s): E04.2 - Nontoxic multinodular goiter Category: Medical (5) Essential hypertension: Code(s): I10 - Essential (primary) hypertension Category: Medical (6) Mixed hyperlipidemia: Code(s): E78.2 - Mixed hyperlipidemia Category: Medical Plan The patient will increase her insulin dosage to 28 units twice daily to better manage her elevated fasting blood glucose levels, which have risen since discontinuing Ozempic. She is advised to continue her current regimen of atorvastatin and fenofibrate for hyperlipidemia, with emphasis on adherence to the medication schedule. For constipation, the patient will continue using laxatives as needed, and dietary adjustments will be considered to alleviate symptoms. An x-ray of the heel will be conducted to investigate the cause of her pain, and she is encouraged to wear appropriate footwear to accommodate her flatfoot condition. Preventative care measures include scheduling a mammogram and bone density screening, as well as updating her pneumonia vaccination. The patient will also have a thyroid ultrasound in February to monitor her thyroid nodules. Patient was informed and verbally consented to the use of an ambient scribe for clinic note documentation during this visit. I discussed with the patient the importance of managing her Type 2 Diabetes Mellitus by adjusting her insulin dosage to 28 units twice daily, considering her elevated fasting blood glucose levels since stopping Ozempic. We reviewed her hyperlipidemia management, emphasizing adherence to atorvastatin and fenofibrate. For her constipation, we discussed continuing laxatives and considering dietary changes. I recommended an x-ray for her heel pain and advised on appropriate footwear for her flatfoot condition. Preventative care measures were discussed, including scheduling a mammogram, bone density screening, and updating her pneumonia vaccination. We also planned for a thyroid ultrasound in February to monitor her thyroid nodules. Orders: Orders XR foot LT 2V Today M79.672 - Pain in left foot MM tomosynthesis screening BI Today Z12.31 - Encounter for screening mammogram for malignant neoplasm of breast XR DEXA axial skeleton Today Z78.0 - Asymptomatic menopausal state Free T4 (Free Thyroxine) 4 Months E04.2 - Nontoxic multinodular goiter Thyroglobulin Antibodies 4 Months E04.2 - Nontoxic multinodular goiter Vitamin B12 and Folate 4 Months E53.8 - Deficiency of other specified B group vitamins AMB Hemoglobin A1c Today E11.65 - Type 2 diabetes mellitus with hyperglycemia, Z79.4 - penitentiary (current) use of insulin US thyroid 3 Months E04.2 - Nontoxic multinodular goiter Thyroid Stimulating Hormone 4 Months E04.2 - Nontoxic multinodular goiter Thyroid Peroxidase Antibodies 4 Months E04.2 - Nontoxic multinodular goiter Comprehensive [place]. Panel Fast 4 Months E11.65 - Type 2 diabetes mellitus with hyperglycemia, Z79.4 - penitentiary (current) use of insulin Lipid Panel 4 Months E11.65 - Type 2 diabetes mellitus with hyperglycemia, E78.5 - Hyperlipidemia, unspecified, Z79.4 - ferry terminal agent (current) use of insulin Microalbumin, Random (w Creat) 4 Months E11.65 - Type 2 diabetes mellitus with hyperglycemia, R80.9 - Proteinuria, unspecified, Z79.4 - penitentiary (current) use of insulin Vitamin D 25-OH Total 4 Months E55.9 - Vitamin D deficiency, unspecified Medications: Changed From insulin NPH and regular human 100 unit/mL (70-30) (Novolin 70-30 FlexPen U- 100 Insulin) 25 units (0.25 mL) subcut BID 30 days 15 mL 3RF E11.65 - Type 2 diabetes mellitus with hyperglycemia To insulin NPH and regular human 100 unit/mL (70-30) (Novolin 70-30 FlexPen U- 100 Insulin) 28 units (0.28 mL) subcut BID 16.8 mL 6RF 30 days E11.65 - Type 2 diabetes mellitus with hyperglycemia
[2024-11-21 13:38] VITALS: BP 138/90; BMI 50.7
--- OUTSIDE RECORDS SUMMARY | 2024-11-21 15:12 | XMS_ITS | Clinical Summary ---
Author Organization [facility] Address [address] [place] [address] Care Team Providers Care Marble Carver Name Role Phone Unavailable Primary Care Provider Unavailabl e Social History Tobacco Use Types Packs/Day Years Used Date Smoking Tobacco: Never Assessed Sex and Gender Information Value Date Recorded Sex Assigned at Not on file Gender Identity Not on file Sexual Orientation Not on file Plan of Treatment Not on file
== END 2024-11-21 14:15 | disposition home or self-care (01) ==
LOC: HO.HMCH 13:30
PROVIDERS: PCP Internal Medicine; Visit Provider Internal Medicine
DX: M79.672 Pain in left foot (principal); E66.01 Morbid (severe) obesity due to excess calories; Z68.43 Body mass index [BMI] 50.0-59.9, adult; E11.65 Type 2 diabetes mellitus with hyperglycemia; Z79.4 Long term (current) use of insulin; E04.2 Nontoxic multinodular goiter; I10 Essential (primary) hypertension; E78.2 Mixed hyperlipidemia

== ENCOUNTER → 2024-11-21 13:30 | Outpatient (BNVA) | payer MEDICARE, SELFPAY | PROVIDERS: PCP Internal Medicine; Visit Provider Internal Medicine | DX: E11.65 Type 2 diabetes mellitus with hyperglycemia (principal); K59.00 Constipation, unspecified; K57.90 Diverticulosis of intestine, part unspecified, without perforation or abscess without bleeding; E04.1 Nontoxic single thyroid nodule; M79.672 Pain in left foot; E66.01 Morbid (severe) obesity due to excess calories; E04.2 Nontoxic multinodular goiter; I10 Essential (primary) hypertension; E78.2 Mixed hyperlipidemia; R80.9 Proteinuria, unspecified; E55.9 Vitamin D deficiency, unspecified; E53.8 Deficiency of other specified B group vitamins; Z68.43 Body mass index [BMI] 50.0-59.9, adult; Z85.51 Personal history of malignant neoplasm of bladder; Z79.4 Long term (current) use of insulin; Z79.899 Other long term (current) drug therapy; Z78.0 Asymptomatic menopausal state | CPT/HCPCS: 83036; 99212 ==

== ENCOUNTER 2024-11-22 11:55 | Outpatient (REF) | payer MEDICARE, SELFPAY ==
--- NOTE | ~2024-11-22 | XR_ITS ---
EXAMINATION: XR FOOT 3 OR MORE VIEWS LEFT HISTORY: M79.672 - Pain in left foot COMPARISON: There are no prior studies available for comparison. FINDINGS: Three views of the foot are submitted. The bones are osteopenic. There is no fracture or dislocation. There is mild degenerative change of the talonavicular joint. There is a small plantar calcaneal spur. The soft tissues are unremarkable. XR/XR foot LT min 3V IMPRESSION: Mild degenerative change of the talonavicular joint. Electronically signed by: Cabrera Hutchison MD 11/22/2024 01:03 PM EDT
--- OUTSIDE RECORDS SUMMARY | 2024-11-22 14:00 | XMS_ITS | Clinical Summary ---
Author Organization [facility] Address [address] [place] [address] Care Team Providers Care Photo Intern Name Role Phone Unavailable Primary Care Provider Unavailabl e Social History Tobacco Use Types Packs/Day Years Used Date Smoking Tobacco: Never Assessed Sex and Gender Information Value Date Recorded Sex Assigned at Not on file Gender Identity Not on file Sexual Orientation Not on file Plan of Treatment Not on file
== END 2024-11-22 11:56 | disposition home or self-care (01) ==
LOC: HO.HMGCX 11:55
PROVIDERS: PCP Internal Medicine; Visit Provider Internal Medicine
DX: M24.175 Other articular cartilage disorders, left foot (principal)
CPT/HCPCS: 73630

== ENCOUNTER → 2024-11-22 11:59 | Outpatient (BNV) | payer MEDICARE, SELFPAY | PROVIDERS: PCP Internal Medicine; Visit Provider Radiology Diagnostic Radiology | DX: M19.072 Primary osteoarthritis, left ankle and foot (principal) | CPT/HCPCS: 73630 ==

== ENCOUNTER 2025-01-18 12:40 | Outpatient (REF) | payer MEDICARE, SELFPAY ==
--- NOTE | ~2025-01-18 | MM_ITS ---
EXAMINATION: MM SCREENING DIGITAL BREAST TOMOSYNTHESIS, BILATERAL CLINICAL INFORMATION: Screening. Asymptomatic. COMPARISON: Mammography: Comparison is made with available priors TECHNIQUE: Digital breast mammography with tomosynthesis is performed in both the craniocaudal and mediolateral oblique views along with computer-aided detection (CAD). FINDINGS: The breasts are almost entirely fatty (ACR BI-RADS breast composition Category a). There are no significant masses, abnormal calcifications, or other abnormalities. MM/MM tomosynthesis screening BI IMPRESSION: No mammographic evidence of malignancy. ASSESSMENT: BI-RADS BI-RADS 1 - Negative RECOMMENDATION: Routine annual mammography screening. 1 year F/U This examination should not preclude the clinical evaluation of a suspicious palpable abnormality. This patient's information was entered into a reminder system with a target due date for their next mammogram. Electronically signed by: Anusha Knox DO 01/28/2025 01:35 PM EDT
--- NOTE | ~2025-01-18 | MM_ITS ---
EXAMINATION: DXA BONE DENSITY EXTREMITY HISTORY: Z78.0 - Asymptomatic menopausal state TECHNIQUE: Family-Mingle Dual energy absorptiometry (DEXA) of the lumbar spine, total left hip, femoral neck, and distal radius was performed. COMPARISON: There are no prior studies for comparison. FINDINGS: The bone mineral density of the lumbar spine is 1.511 g/cm2, corresponding to a T-score of 2.9, and a Z-score of 33. This is indicative of normal bone mineral density. The bone mineral density of the left total hip is 0.935 g/cm2, corresponding to a T-score of -0.6, and a Z-score of -0.2. This is indicative of normal bone mineral density. The bone mineral density of the left femoral neck is 0.882 g/cm2, corresponding to a T-score of -1.1, and a Z-score of -0.4. This is indicative of osteopenia. The bone mineral density of the distal radius is 0.872 g/cm2, corresponding to a T-score of -0.1, and a Z-score of 1.4. This is indicative of normal bone mineral density. FRACTURE RISK: The FRAX index suggests a risk of major osteoporotic fracture of 6.7%, and of hip fracture 0.5%. MM/XR DEXA appendicular skeleton IMPRESSION: Based on bone mineral density, and according to World Health Organization (WHO) criteria, the diagnosis is consistent with osteopenia. Statistically, 68% of repeat scans fall within 1 SD (+/- 0.010 g/cm2 for AP spine L1-L4) and 1 SD (+/- 0.012 g/cm2 for femur total) FRAX is a trademark of the [employer]'s [place] [facility] [employer], a World Health Organization (WHO) Collaborating Center. Electronically signed by: Cabrera Hutchison MD 01/18/2025 01:48 PM EDT
--- OUTSIDE RECORDS SUMMARY | 2025-01-18 12:42 | XMS_ITS | Clinical Summary ---
Author Organization [facility] Address [address] [place] [address] Care Team Providers Care Baggage Agent Supervisor Name Role Phone Unavailable Primary Care Provider Unavailabl e Social History Tobacco Use Types Packs/Day Years Used Date Smoking Tobacco: Never Assessed Sex and Gender Information Value Date Recorded Sex Assigned at Not on file Gender Identity Not on file Sexual Orientation Not on file Plan of Treatment Not on file
== END 2025-01-18 12:41 | disposition home or self-care (01) ==
LOC: HO.MAMMO 12:40
PROVIDERS: PCP Internal Medicine; Visit Provider Internal Medicine
DX: Z12.31 Encounter for screening mammogram for malignant neoplasm of breast (principal); Z78.0 Asymptomatic menopausal state
CPT/HCPCS: 77063; 77067; 77081

== ENCOUNTER → 2025-01-18 13:30 | Outpatient (BNV) | payer MEDICARE, SELFPAY | PROVIDERS: PCP Internal Medicine; Visit Provider Radiology Diagnostic Radiology | DX: E28.39 Other primary ovarian failure (principal) | CPT/HCPCS: 77081 ==

== ENCOUNTER 2025-01-22 06:19 | Day surgery (SDC) | payer MEDICARE, SELFPAY ==
--- OUTSIDE RECORDS SUMMARY | 2024-12-06 09:32 | XMS_ITS | Clinical Summary ---
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
[2025-01-18 13:44] VITALS: BMI 49.7
--- NOTE | 2025-01-21 09:45 | HO.ANESPROP2 ---
Documented by User: Natacha Cadena NP 01/21/25 09:47 HPI - Anesthesia Eval Consult details Narrative: 64yo F for Upper Endoscopy BMI 49.7 PMFSH Active Problems Active Problems: All Active Problems Left foot pain (Acute) Chronic GERD (Acute) Chronic idiopathic constipation (Acute) Urinary incontinence (Acute) Right knee pain (Acute) Head injury (Acute) Skin lesion (Acute) COVID-19 virus infection (Acute) Morbid obesity with BMI of 50.0-59.9, adult (Acute) Type 2 diabetes mellitus, with long-term current use of insulin (Acute) Right hand pain (Acute) Requires scooter for mobility (Acute) Multinodular thyroid (Acute) HLD (hyperlipidemia) (Acute) HTN (hypertension) (Acute) T2DM (type 2 diabetes mellitus) (Acute) Diverticulosis (Acute) Colovesical fistula (Acute) Anxiety (Acute) GERD (gastroesophageal reflux disease) (Acute) Multinodular thyroid (Acute) Goiter (Acute) Obesity due to excess calories (Acute) Right knee pain (Acute) Mixed hyperlipidemia (Acute) 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 (Acute) Essential hypertension (Acute) Lumbar degenerative disc disease (Acute) Past Medical History Medical History Morbid obesity with BMI of 45.0-49.9, adult Sinusitis Multinodular thyroid Lumbar pain HLD (hyperlipidemia) HTN (hypertension) T2DM (type 2 diabetes mellitus) Bilateral knee pain Super-super obese Right shoulder pain Chronic back pain Frequent UTI Anxiety Encounter for screening colonoscopy GERD (gastroesophageal reflux disease) Multinodular thyroid Goiter Obesity due to excess calories Diabetes type 2, uncontrolled Right knee pain Morbid obesity Mixed hyperlipidemia 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 Diabetes mellitus Essential hypertension Lumbar degenerative disc disease Family History Family History Father Melanoma Hypercholesteremia Substance use disorder Mother Diabetes Hypertension Bladder cancer Maternal Grandmother Cancer Family/Other FH: mental illness Family history of problems with anesthesia: No Surgical History Surgical History History of esophagogastroduodenoscopy (EGD) Hx of colonoscopy Status post fine needle aspiration Hx of cystoscopy History of total abdominal hysterectomy and bilateral salpingo-oophorectomy History of lumbar fusion History of carpal tunnel release History of lumbar laminectomy History of cholecystectomy History of tubal ligation History of Problems with Anesthesia: No Social History Social History Household Members: Spouse Housing: House Alcohol intake: never Patient Tobacco Use Status: Former Tobacco user Tobacco use type: Cigarette Years Smoked: 30 years e-Cigarette/Vaping Use: Never Used Second Hand Smoke Exposure: No Have you been hit, kicked, punched, or otherwise hurt by someone within the past year? If so, by whom?: No Are you DNR?: No Advance Directives: No Advance Directives Information Provided: Yes Poor oral hygiene: Yes service: No Current occupational status: disabled Cognitive needs: No Hearing needs: No Vision needs: Yes Meds Allergies Allergy/AdvReac Type Severity Reaction Status Date / Time Iodinated Contrast Media (IV Allergy Severe ANAPHYLAXIS Verified 01/22/25 07:18 CONTRAST) morphine (MORPHINE) Allergy Severe CARDIAC Verified 01/22/25 07:18 ARREST Sulfa (Sulfonamide Allergy Severe WASNT ABLE Verified 01/22/25 07:18 Antibiotics) TO SEE, (SULFA(SULFONAMIDE right eye ANTIBIOTICS)) blindness adhesive tape Allergy Intermediate BLISTERS Verified 01/22/25 07:18 amoxicillin (Augmentin) Allergy Intermediate hives Verified 01/22/25 07:18 ciprofloxacin (Cipro) Allergy Intermediate hives Verified 01/22/25 07:18 clavulanic acid (Augmentin) Allergy Intermediate hives Verified 01/22/25 07:18 erythromycin base Allergy Intermediate HIVES Verified 01/22/25 07:18 (Erythromycin Base) iodine (IODINE) Allergy Intermediate BLISTERS Verified 01/22/25 07:18 levofloxacin (From LEVAQUIN) Allergy Intermediate RASH Verified 01/22/25 07:18 Penicillins Allergy Unknown stiff Verified 01/22/25 07:18 semaglutide (From Ozempic) AdvReac Severe abdominal Verified 01/22/25 07:18 pain, constipation lobster Allergy Intermediate hives Uncoded 01/22/25 07:18 pork Allergy Intermediate hives Uncoded 01/22/25 07:18 Home Medications ?Medication ?Instructions ?Recorded ?Confirmed ?Last Taken ?Type trospium 20 mg tablet 20 mg PO BID 07/04/24 01/22/25 Unknown History multivitamin 1 tab PO DAILY 10/09/24 01/22/25 Unknown History Exam Height,Weight and Vital Signs: Height 5 ft 1 in Weight 119.295 kg Pertinent Lab Results Pertinent Lab Results: Laboratory Tests 07/02/20 11/19/24 09:20 08:11 WBC 10.0 Hgb 12.6 Hct 43.0 Plt Count 318 Sodium 141 Potassium 4.5 Chloride 108 Carbon Dioxide 27 BUN 23 H Creatinine 1.10 Assessment and Plan Assessment Anesthesia Assessment: Chart Reviewed Final Anesthetic Review Family History of Problems with Anesthesia: No History of Problems with Anesthesia: No Documented by User: Yobany Bass MD 01/22/25 07:32 [facility] Past Medical History Medical History Morbid obesity with BMI of 45.0-49.9, adult Sinusitis Multinodular thyroid Lumbar pain HLD (hyperlipidemia) HTN (hypertension) T2DM (type 2 diabetes mellitus) Bilateral knee pain Super-super obese Right shoulder pain Chronic back pain Frequent UTI Anxiety Encounter for screening colonoscopy GERD (gastroesophageal reflux disease) Multinodular thyroid Goiter Obesity due to excess calories Diabetes type 2, uncontrolled Right knee pain Morbid obesity Mixed hyperlipidemia 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 Diabetes mellitus Essential hypertension Lumbar degenerative disc disease Family History Family History Father Melanoma Hypercholesteremia Substance use disorder Mother Diabetes Hypertension Bladder cancer Maternal Grandmother Cancer Family/Other FH: mental illness Surgical History Surgical History History of esophagogastroduodenoscopy (EGD) Hx of colonoscopy Status post fine needle aspiration Hx of cystoscopy History of total abdominal hysterectomy and bilateral salpingo-oophorectomy History of lumbar fusion History of carpal tunnel release History of lumbar laminectomy History of cholecystectomy History of tubal ligation Social History Social History Household Members: Spouse Housing: House Alcohol intake: never Patient Tobacco Use Status: Former Tobacco user Tobacco use type: Cigarette Years Smoked: 30 years e-Cigarette/Vaping Use: Never Used Second Hand Smoke Exposure: No Have you been hit, kicked, punched, or otherwise hurt by someone within the past year? If so, by whom?: No Are you DNR?: No Advance Directives: No Advance Directives Information Provided: Yes Poor oral hygiene: Yes service: No Current occupational status: disabled Cognitive needs: No Hearing needs: No Vision needs: Yes Meds Allergies Allergy/AdvReac Type Severity Reaction Status Date / Time Iodinated Contrast Media (IV Allergy Severe ANAPHYLAXIS Verified 01/22/25 07:18 CONTRAST) morphine (MORPHINE) Allergy Severe CARDIAC Verified 01/22/25 07:18 ARREST Sulfa (Sulfonamide Allergy Severe WASNT ABLE Verified 01/22/25 07:18 Antibiotics) TO SEE, (SULFA(SULFONAMIDE right eye ANTIBIOTICS)) blindness adhesive tape Allergy Intermediate BLISTERS Verified 01/22/25 07:18 amoxicillin (Augmentin) Allergy Intermediate hives Verified 01/22/25 07:18 ciprofloxacin (Cipro) Allergy Intermediate hives Verified 01/22/25 07:18 clavulanic acid (Augmentin) Allergy Intermediate hives Verified 01/22/25 07:18 erythromycin base Allergy Intermediate HIVES Verified 01/22/25 07:18 (Erythromycin Base) iodine (IODINE) Allergy Intermediate BLISTERS Verified 01/22/25 07:18 levofloxacin (From LEVAQUIN) Allergy Intermediate RASH Verified 01/22/25 07:18 Penicillins Allergy Unknown stiff Verified 01/22/25 07:18 semaglutide (From Ozempic) AdvReac Severe abdominal Verified 01/22/25 07:18 pain, constipation lobster Allergy Intermediate hives Uncoded 01/22/25 07:18 pork Allergy Intermediate hives Uncoded 01/22/25 07:18 Home Medications ?Medication ?Instructions ?Recorded ?Confirmed ?Last Taken ?Type trospium 20 mg tablet 20 mg PO BID 07/04/24 01/22/25 Unknown History multivitamin 1 tab PO DAILY 10/09/24 01/22/25 Unknown History Exam Airway Mallampati Class: II TM Dist: >3cm Neck ROM: Full Denture: Upper Loose/Missing/Broken Teeth: Yes Heart: rrr Lungs: cta Assessment and Plan Assessment Anesthesia Assessment: Anesthesia Plan Discussed Final Anesthetic Review NPO: Yes ASA Class: III Final Preanesthetic Review: No Changes in Pt Med Stat, Meds/Allgs Chart Reviewed, Consent Obtained/Reviewed and Anes Risks/Benef Reviewed Patient Risk: Intermediate Procedure Risk: Low Anesthetic Plan Anesthetic Plan: MAC: Disposition: Standard PACU
--- NOTE | 2025-01-21 17:39 | MHC.SHP ---
Pre-Procedural Eval Section A - 24 Hr Update-Section A only Date of Service: 01/22/25 Section B - Complete if H&P > 30 days Chief Complaint: Gastro-esophageal reflux disease without esophagit Details of Present Illness: Morbid obesity with BMI of 45.0-49.9, adult Sinusitis Multinodular thyroid Lumbar pain HLD (hyperlipidemia) HTN (hypertension) T2DM (type 2 diabetes mellitus) Bilateral knee pain Super-super obese Right shoulder pain Chronic back pain Frequent UTI Anxiety Encounter for screening colonoscopy GERD (gastroesophageal reflux disease) Multinodular thyroid Goiter Obesity due to excess calories Diabetes type 2, uncontrolled Right knee pain Morbid obesity Mixed hyperlipidemia 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 Diabetes mellitus Essential hypertension Lumbar degenerative disc disease Surgical History History of esophagogastroduodenoscopy (EGD) Hx of colonoscopy Status post fine needle aspiration Hx of cystoscopy History of total abdominal hysterectomy and bilateral salpingo-oophorectomy History of lumbar fusion History of carpal tunnel release History of lumbar laminectomy History of cholecystectomy History of tubal ligation Present Medications: see Short Stay Collaborative assessment Allergies: Allergies Allergy/AdvReac Type Severity Reaction Status Date / Time Iodinated Contrast Media (IV Allergy Severe ANAPHYLAXIS Verified 11/21/24 13:49 CONTRAST) morphine (MORPHINE) Allergy Severe CARDIAC Verified 11/21/24 13:49 ARREST Sulfa (Sulfonamide Allergy Severe WASNT ABLE Verified 11/21/24 13:49 Antibiotics) TO SEE, (SULFA(SULFONAMIDE right eye ANTIBIOTICS)) blindness adhesive tape Allergy Intermediate BLISTERS Verified 11/21/24 13:49 amoxicillin (Augmentin) Allergy Intermediate hives Verified 11/21/24 13:49 ciprofloxacin (Cipro) Allergy Intermediate hives Verified 11/21/24 13:49 clavulanic acid (Augmentin) Allergy Intermediate hives Verified 11/21/24 13:49 erythromycin base Allergy Intermediate HIVES Verified 11/21/24 13:49 (Erythromycin Base) iodine (IODINE) Allergy Intermediate BLISTERS Verified 11/21/24 13:49 levofloxacin (From LEVAQUIN) Allergy Intermediate RASH Verified 11/21/24 13:49 Penicillins Allergy Unknown stiff Verified 11/21/24 13:49 semaglutide (From Ozempic) AdvReac Severe abdominal Verified 11/21/24 13:49 pain, constipation lobster Allergy Intermediate hives Uncoded 11/21/24 13:49 pork Allergy Intermediate hives Uncoded 11/21/24 13:49 Review of Systems Review of Systems Comment: Ten point ROS negative Exam Exam Comment: Gen appear: No acute distress HEENT: no icterus Chest: No overt resp distress Abd: soft, nontender, nondistended Psych: Stable affect, answering questions appropriately Neuro: A/Ox3 noted to move all extremities spontaneously Ext: no peripheral edema Plan Diagnosis/Plan: Unchanged I have reviewed the history and physical and performed a pertinent physical examination on my patient. No changes have occurred unless specified. Time Spent With Patient Time: Total time managing care of this patient today ____ minutes.
[2025-01-22 06:45] VITALS: BMI 52.1
[2025-01-22] MEDS: Lactated Ringers 1,000 ML 100 ML IVCONT (07:07)
[2025-01-22 07:08] VITALS: BP 167/80; PULSE 81; RESP 18; TEMP 36.7; O2SAT 96
[2025-01-22 07:09] LABS: Glucose, Whole Blood 167 mg/dL (60-115)
--- NOTE | 2025-01-22 07:44 | P.OP_ITS ---
Operative Note Operative Note Date of Service: 01/22/25 Narrative: Procedure: Esophagogastroduodenoscopy Endoscopist: Khalida Guillermo MD Indication: GERD Anesthesia Provider: Dr Bass Anesthesia Type: MAC ?? EGD Procedure:?? The procedure, indications, preparation and potential complications were reviewed with the patient, who indicated understanding and gave written informed consent to proceed. A physical exam was performed. The endoscope was introduced through the mouth, and advanced to the second part of duodenum. The mucosa was carefully examined on slow withdrawal of the endoscope. The patient tolerated the procedure well. There were no immediate complications.? ? EGD Findings:? * Esophagus:? Normal mucosa noted in the entire esophagus. The Z line was at 35 cm and irregular < 1 cm but assoc with a small 6 mm salmon colored mucosal island. GE junction forceps biopsies were obtained to rule out Duvall's esophagus. A tissue Cypher will also be sent if metaplasia present. * Stomach:? Normal mucosa was noted in the stomach. Numerous sessile and semi pedunculated polyps were noted in the fundus of the stomach. Cold snare polypectomy was performed for the larger ones. Retroflexion was performed in the cardia. Random cold forceps gastric biopsies were taken to rule out H Pylori infection. * Duodenum:? Normal mucosa was noted in the whole of the examined duodenum. Cold forceps biopsies were taken from duodenal bulb and second portion of the duodenum to rule out celiac sprue. ? EGD Impressions:? * Irregular Z line r/o BE (biopsy, tissue cypher) * Normal stomach (biopsy) * Gastric polyps (polypectomy) * Normal duodenum (biopsy) ?? Recommendations:?? * Follow biopsy results. Our office will call or send a letter with results within 7-10 days. * Continue PPI therapy. * If H pylori +, patient will be prescribed eradication therapy followed by test of cure. * Avoid NSAIDs. * Consider referral to bariatric surgery/weight management. Above has been reviewed with the patient.
[2025-01-22 08:11] VITALS: BP 120/56; PULSE 75; RESP 16; TEMP 36.7; O2SAT 96
[2025-01-22 08:26] VITALS: BP 133/77; PULSE 79; RESP 18; TEMP 36.7; O2SAT 96
== END 2025-01-22 08:50 | disposition home or self-care (01) ==
PROVIDERS: PCP Internal Medicine; Visit Provider Internal Medicine
PROC: 0DJ08ZZ Inspection of Upper Intestinal Tract, Via Natural or Artificial Opening Endoscopic (ICD-10-PCS; CPT 43235; principal; 2025-01-22 07:30)
DX: K21.9 Gastro-esophageal reflux disease without esophagitis (principal); K31.7 Polyp of stomach and duodenum; K22.9 Disease of esophagus, unspecified; E11.9 Type 2 diabetes mellitus without complications; I10 Essential (primary) hypertension; E78.5 Hyperlipidemia, unspecified; E66.9 Obesity, unspecified; Z68.42 Body mass index [BMI] 45.0-49.9, adult; Z79.4 Long term (current) use of insulin; Z79.84 Long term (current) use of oral hypoglycemic drugs; Z79.02 Long term (current) use of antithrombotics/antiplatelets; Z79.899 Other long term (current) drug therapy; Z87.891 Personal history of nicotine dependence
CPT/HCPCS: 43251; 43239; 82947; 88305; 88313; 88342; J2003; J2704; J3010

== ENCOUNTER → 2025-01-22 06:19 | Outpatient (BNV) | payer MEDICARE, SELFPAY | PROVIDERS: PCP Internal Medicine; Visit Provider Internal Medicine | DX: K21.9 Gastro-esophageal reflux disease without esophagitis (principal); K22.89 Other specified disease of esophagus; K31.7 Polyp of stomach and duodenum | CPT/HCPCS: 43239; 43251 ==

== ENCOUNTER 2025-02-07 13:41 | Outpatient (AMB) | payer MEDICARE, SELFPAY ==
--- NOTE | 2025-02-07 13:46 | MHC.OFFVIS ---
Vital Signs 02/07/25 13:47 Height 5 ft 1 in Weight 270 lb BMI 51.0 BP 144/84 H Blood Pressure Location Lt brachial Position Sitting Pulse 95 Pulse Oximetry (%) 95 Oxygen Delivery Method Room Air Intake Visit Reasons: S/P EGD: Dr. Guillermo Intake Note: Patient follow up for EGD results. Patient cc: acid reflux on and off, diarrhea on and off, some chocking sensation on and off due thyroid disease, denies any other GI issues. 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 Accompanied by: Self / Same As Patient Allergies Iodinated Contrast Media (IV CONTRAST) Allergy (Severe, Verified 02/07/25 13:46) ANAPHYLAXIS morphine (MORPHINE) Allergy (Severe, Verified 02/07/25 13:46) CARDIAC ARREST Sulfa (Sulfonamide Antibiotics) (SULFA(SULFONAMIDE ANTIBIOTICS)) Allergy (Severe, Verified 02/07/25 13:46) WASNT ABLE TO SEE, right eye blindness adhesive tape Allergy (Intermediate, Verified 02/07/25 13:46) BLISTERS amoxicillin (Augmentin) Allergy (Intermediate, Verified 02/07/25 13:46) hives ciprofloxacin (Cipro) Allergy (Intermediate, Verified 02/07/25 13:46) hives clavulanic acid (Augmentin) Allergy (Intermediate, Verified 02/07/25 13:46) hives erythromycin base (Erythromycin Base) Allergy (Intermediate, Verified 02/07/25 13:46) HIVES iodine (IODINE) Allergy (Intermediate, Verified 02/07/25 13:46) BLISTERS levofloxacin (From LEVAQUIN) Allergy (Intermediate, Verified 02/07/25 13:46) RASH Penicillins Allergy (Unknown, Verified 02/07/25 13:46) stiff semaglutide (From Ozempic) Adverse Reaction (Severe, Verified 02/07/25 13:46) abdominal pain, constipation lobster Allergy (Intermediate, Uncoded 01/22/25 07:18) hives pork Allergy (Intermediate, Uncoded 01/22/25 07:18) hives Medication List - Last Reconciled 02/07/25 by Liana Zamorano CNP atorvastatin 40 mg PO BEDTIME 90 days blood sugar diagnostic (OneTouch Verio test strips) Use 1 test strips three times a day blood-glucose meter (OneTouch Verio Flex Meter) As directed 3x/day cyclobenzaprine 10 mg PO BEDTIME PRN 10 days doxycycline hyclate 100 mg PO BID 5 days empagliflozin (Jardiance) 10 mg PO DAILY 90 days famotidine 20 mg PO DAILY PRN fenofibrate 54 mg PO DAILY 90 days gabapentin 200 mg (2 x 100 mg) PO TID 90 days hydrocodone-acetaminophen 10-325 mg 1 tab PO Q8H PRN 30 days insulin NPH and regular human 100 unit/mL (70-30) (Novolin 70-30 FlexPen U-100 Insulin) 28 units (0.28 mL) subcut BID 90 days Lactobacillus acidophilus 1,000 mmu cells PO DAILY lisinopril 2.5 mg PO DAILY 90 days meloxicam 15 mg PO DAILY PRN 30 days metformin 1,000 mg PO BID 90 days multivitamin 1 tab PO DAILY ondansetron 8 mg PO Q8H PRN 30 days pantoprazole 20 mg PO BID pen needle, diabetic (1st Tier Unifine Pentips) Use 1 pen needle twice a day pen needle, diabetic (Easy Comfort Pen [place]) Use 1 once a day [pen needles, diabetic 31 G x 6 mm As directed] [scooter As directed] trospium 20 mg PO BID HPI HPI S/P EGD: Dr. Guillermo: Details: Patient is a 64-year-old female with PMH of morbid obesity, DMII, hyperlipidemia, hypertension, anxiety and GERD. Last visit with CITLALLI Vasquez 09/03/2021 for follow-up after colonoscopy. She present for follow up after EGD. Patient reports the severity of heartburn has improved since discontinuing Ozempic, with current symptoms occurring 1-2 times per week, manageable with current PPI regimen. However, occasional severe episodes persist, particularly at night, requiring the patient to sleep in a recliner. Dietary changes have been implemented to avoid known triggers. Stools have improved with pre/probiotic use and cessation of Ozempic; patient reports a daily bowel movement with loose, watery diarrhea occurring approximately once weekly, associated with dietary triggers. There is a long-standing symptom of dysphagia where pills or food feel temporarily lodged, alleviated with water; frequency has not worsened. The patient denies choking episodes. No flares of urgency or hospitalization since last visit. Pt reports she continues with meloxicam use for plantar fasciitis. However, she is now taking 2 days on, 2 days off, as pain control is needed for ambulation. Shares she made this frequency decreased post endoscopy. Orthopedics advised exercises and night splint; pt balances use due to pain and hx of multiple back surgeries. No new GI side effects reported with meloxicam. [facility] Medical History (Updated 02/07/25 @ 14:57 by Liana Zamorano CNP) Diarrhea Esophageal dysmotility Chronic GERD Morbid obesity with BMI of 45.0-49.9, adult Sinusitis Multinodular thyroid Lumbar pain HLD (hyperlipidemia) HTN (hypertension) T2DM (type 2 diabetes mellitus) Bilateral knee pain Super-super obese Right shoulder pain Chronic back pain Frequent UTI Anxiety Encounter for screening colonoscopy GERD (gastroesophageal reflux disease) Multinodular thyroid Goiter Obesity due to excess calories Diabetes type 2, uncontrolled Right knee pain Morbid obesity Mixed hyperlipidemia 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 Diabetes mellitus Essential hypertension Lumbar degenerative disc disease Surgical History History of esophagogastroduodenoscopy (EGD) Hx of colonoscopy Status post fine needle aspiration Hx of cystoscopy History of total abdominal hysterectomy and bilateral salpingo-oophorectomy History of lumbar fusion History of carpal tunnel release History of lumbar laminectomy History of cholecystectomy History of tubal ligation Family History Father Melanoma Hypercholesteremia Substance use disorder Mother Diabetes Hypertension Bladder cancer Maternal Grandmother Cancer Family/Other FH: mental illness Social History Household Members: Spouse Housing: House Alcohol intake: never Patient Tobacco Use Status: Former Tobacco user Tobacco use type: Cigarette Years Smoked: 30 years e-Cigarette/Vaping Use: Never Used Second Hand Smoke Exposure: No service: No Current occupational status: disabled Cognitive needs: No Hearing needs: No Vision needs: Yes Review of Systems Const Reports as per HPI ENT Reports as per HPI Card Reports as per HPI Resp Reports as per HPI GI Reports as per HPI Reports as per HPI Physical Exam Vital Signs: Last Vital Signs Pulse 95 02/07/25 13:47 BP 144/84 H 02/07/25 13:47 Pulse Ox 95 02/07/25 13:47 Oxygen Delivery Method Room Air 02/07/25 13:47 BMI result Body Mass Index 51.0 Const General: healthy appearing, no acute distress and well developed Nutritional Appearance: obese Orientation/consciousness: patient oriented x3 HEENT Head: Yes normal to inspection, Yes normocephalic and Yes atraumatic Face and sinus: Yes normal facial exam Eyes General: appearance normal, both eyes and all related structures Neck Neck: Yes normal visual inspection Resp Effort & Inspection: normal respiratory effort, able to speak in complete sentences, no tracheal deviation and symmetric chest movement Cardio Jugular venous distension: no JVD Neuro General: patient oriented x3 Gait exam (Neuro): Normal gait present Psych Appearance: grossly normal Mental Status: mental status grossly normal Speech and movement: Normal speech and movement present Affect: normal affect Attitude: cooperative Thought process: Normal thought process present Thought content: Normal thought content present Insight: Good insight present (Psych) Judgement: Good judgement present (Psych) Results Reviewed Results Reviewed: Addendum Dictated By: Khalida Guillermo MD Addendum Signed By: 01/22/25825 Addendum Cosigned By: DD/ /06/825 TD/TT: 01/22/2506/06/825 Operative Note Operative Note Date of Service: 01/22/25 Narrative: Procedure: Esophagogastroduodenoscopy Endoscopist: Khalida Guillermo MD Indication: GERD Anesthesia Provider: Dr Bass Anesthesia Type: MAC EGD Procedure: The procedure, indications, preparation and potential complications were reviewed with the patient, who indicated understanding and gave written informed consent to proceed. A physical exam was performed. The endoscope was introduced through the mouth, and advanced to the second part of duodenum. The mucosa was carefully examined on slow withdrawal of the endoscope. The patient tolerated the procedure well. There were no immediate complications. EGD Findings: Esophagus: Normal mucosa noted in the entire esophagus. The Z line was at 35 cm and irregular < 1 cm but assoc with a small 6 mm salmon colored mucosal island. GE junction forceps biopsies were obtained to rule out Duvall's esophagus. A tissue Cypher will also be sent if metaplasia present. Stomach: Normal mucosa was noted in the stomach. Numerous sessile and semi pedunculated polyps were noted in the fundus of the stomach. Cold snare polypectomy was performed for the larger ones. Retroflexion was performed in the cardia. Random cold forceps gastric biopsies were taken to rule out H Pylori infection. Duodenum: Normal mucosa was noted in the whole of the examined duodenum. Cold forceps biopsies were taken from duodenal bulb and second portion of the duodenum to rule out celiac sprue. EGD Impressions: Irregular Z line r/o BE (biopsy, tissue cypher) Normal stomach (biopsy) Gastric polyps (polypectomy) Normal duodenum (biopsy) Recommendations: Follow biopsy results. Our office will call or send a letter with results within 7-10 days. Continue PPI therapy. If H pylori +, patient will be prescribed eradication therapy followed by test of cure. Avoid NSAIDs. Consider referral to bariatric surgery/weight management. Above has been reviewed with the patient. PATHOLOGY: Collected: 01/22/25 Location: [facility] Received: 01/22/25 Diagnosis A. Duodenum, biopsy: Duodenal mucosa with preserved villi and no specific change. B. Stomach, random, biopsy: Gastric body mucosa with reactive changes and minimal chronic inactive gastritis; negative for H. pylori, intestinal metaplasia and dysplasia. C. Gastric polyps: Fundic gland polyps with mild chronic inactive inflammation and reactive changes; negative for H. pylori, intestinal metaplasia and dysplasia. D. Esophagogastric junction, biopsy: Squamocolumnar mucosa with mild chronic inflammation; negative for intestinal metaplasia and dysplasia. Clinical History Pre-Op Dx: Gastro-esophageal reflux disease without esophagitis Post-Op Dx: Gastric polyps, r/o Duvall's Assessment & Plan Assessment & Plan (1) GERD (gastroesophageal reflux disease): Comment: 01/22/25 EGD -Fundic gland polyps, No Duvall's Code(s): K21.9 - Gastro-esophageal reflux disease without esophagitis Category: Medical Qualifiers: Esophagitis presence: with esophagitis Esophagitis bleeding: without hemorrhage Qualified Code(s): K21.00 - Gastro-esophageal reflux disease with esophagitis, without bleeding Plan: Improving. Symptoms occurring ~1-2 times per week, down from prior daily frequency. Continue current PPI for symptom management. Medications: -Continue pantoprazole 20 mg BID (morning and evening). - adequate supply on hand leading to next follow-up. -minimize NSAID use Lifestyle Recommendations: -Continue trigger avoidance (e.g., greasy or fried foods, known reflux-inducing meals). -Maintain hydration and dietary modifications such as limited caffeine. Follow-Up Plan: Follow up in 6 months unless symptoms worsen. (2) Obesity due to excess calories: Code(s): E66.09 - Other obesity due to excess calories Category: Medical Qualifiers: Obesity classification: adult class 3 (BMI >= 40) Serious obesity comorbidity presence: with serious comorbidity Body mass index: BMI 45.0-49.9 Qualified Code(s): E66.01 - Morbid (severe) obesity due to excess calories; Z68.42 - Body mass index [BMI] 45.0-49.9, adult Plan: BMI 51.0. No active plan post-Ozempic discontinuation. Weight stable, pt not keen on alternative interventions or referral at this time. Discussed the potential benefits of weight loss included reduction in GERD, near or complete resolution of plantar fasciitis and overall health promotion. Discussion on lifestyle modifications to promote healthy weight: -Well-balanced diet -Adequate hydration with water -150 minutes of moderate intensity exercise per week (3) Esophageal dysmotility: Code(s): K22.4 - Dyskinesia of esophagus Category: Medical Plan: Stable. Sensation of food/drink temporarily stuck in esophagus occurs ~once every few weeks, self-resolves. Additional Testing: Barium swallow declined by patient's secondary to intolerance (diarrhea with barium). Patient instructed to monitor for frequency worsening or any choking. Follow-Up Plan: Continue observation; reevaluate if the frequency increases or becomes problematic. (4) Diarrhea: Code(s): R19.7 - Diarrhea, unspecified Category: Medical Qualifiers: Diarrhea type: unspecified type Qualified Code(s): R19.7 - Diarrhea, unspecified Plan: Stable. Episodes occur ~once weekly, associated with dietary triggers. Rationale for Management Changes: Likely food-related; no evidence currently necessitating further workup. Lifestyle Recommendations: -Continue pre/probiotic OTC supplement ([place]) to support gut health. -Avoid dietary triggers identified by history, such as greasy or fried foods. Follow-Up Plan: Monitor stool consistency; report marked increase in symptoms. Plan Follow-up in 6 months or sooner as needed Time: I spent a total of 30 minutes on the date of encounter which includes: Preparing to see the patient (reviewed previous documentation, test results and medical history) Performing a medically appropriate exam and/or evaluation Ordering medications, tests, and procedures Documenting clinical information in the health record Coding Level of Care Code Established Pt Est Pt Level 3 (52510) Patient Type Established Diagnoses Gastroesophageal reflux disease with esophagitis without hemorrhage K21.00 Esophagitis presence: with esophagitis Esophagitis bleeding: without hemorrhage Class 3 severe obesity due to excess calories with serious comorbidity and body mass index (BMI) of 45.0 to 49.9 in adult E66.01; Z68.42 Obesity classification: adult class 3 (BMI >= 40) Serious obesity comorbidity presence: with serious comorbidity Body mass index: BMI 45.0-49.9 Esophageal dysmotility K22.4 Diarrhea, unspecified type R19.7 Diarrhea type: unspecified type
[2025-02-07 13:47] VITALS: BP 144/84; PULSE 95; O2SAT 95; BMI 51.0
--- OUTSIDE RECORDS SUMMARY | 2025-02-07 14:24 | XMS_ITS | Clinical Summary ---
Author Organization [facility] Address [address] [place] [id number] Phone Care Team Providers Care Manager Software Name Role Phone Taylor Bess MD Primary Care Provid er Allergies Active Allergy Reactions Criticality Noted Date Comments Betadine (Povidone-Iodine) Dermatitis 10/16/2015 Skin blisters Erythromycin Hives 10/16/2015 Morphine Other (See Comments) 10/16/2015 lost heart beat Penicillins Other (See Comments) 10/16/2015 went stiff as a board Pork Derived (Porcine) Hives 03/30/2021 Shellfish Containing Products Hives 03/30/2021 Sulfur Other (See Comments) 10/16/2015 blindness Adhesive Rash with Blisters High 03/30/2021 Medications metFORMIN (GLUCOPHAGE) 1000 MG tablet Take 1,000 mg by mouth 2 (two) times a day with meals. Active topiramate (TOPAMAX) 100 MG tabletIndication s:Neuropathy Take 200 mg by mouth 2 (two) times a day. Indications: Neuropathy Active fenofibrate (LOFIBRA) 54 MG tabletIndication s:hyperlipidemia Take 54 mg by mouth daily. Indications: Hyperlipidemia Active atorvastatin (LIPITOR) 40 MG tablet Take 10 mg by mouth daily. Active pantoprazole (PROTONIX) 40 MG tablet Take 40 mg by mouth daily. Active pioglitazone (ACTOS) 30 MG tablet Take 30 mg by mouth daily. Active HYDROcodone-ibup rofen (VICOPROFEN) 7.5-200 mg per tablet Take 1 tablet by mouth every 8 (eight) hours as needed for pain (specific location in comments). Active lidocaine 5 % ointmentIndicati ons:Dyspareunia Use as needed. Apply by saturating cotton balls or large cotton swabs fully and hold against the vestibule mucosa for 3 minutes 35.44 g 2 10/16/19 16 Active estradiol (ESTRACE) 0.5 MG tabletIndication s:Female dyspareunia Take 1 tablet (0.5 mg total) by mouth daily. 30 tablet 3 04/12/20 16 Active lisinopril (PRINIVIL,ZESTRI L) 2.5 MG tablet Take 2.5 mg by mouth daily. Active glipiZIDE (GLUCOTROL) 5 MG tablet Take 5 mg by mouth 2 (two) times a day before meals. Active dulaglutide (TRULICITY) 1.5 mg/0.5 mL subcutaneous injection Inject 1.5 mg under the skin every 7 days. Active insulin glargine,hum.rec .anlog (LANTUS SOLOSTAR U-100 INSULIN SUBQ)Indications :10 units in the evening Inject under the skin. Indications: 10 units in the evening Active Active Problems Problem Noted Date Diagnosed Date Unspecified dyspareunia (CODE) 10/16/2015 Assessment & Plan (12/03/2015 11:37 AM EDT): Continued assessment and treatment. She is very pleased with her current function and considers herself fully recovered. I am pleased as well and for now, have refilled her estradiol. I informed her I would be comfortable with a total treatment time of 3-5 years, and since she is s/p hysterectomy, there is little risk. This is also safe despite her endometrial cancer, as there are data suggesting no increased risk of recurrence in such patients. This includes a randomized trial conducted by the Gynecologic Oncology Group (GOG 137) which included over 1200 women (predominantly with stage I endometrioid tumors) where, compared to placebo, estrogen treatment had no impact on the recurrence rate (Toni RR, et al. J Clin Oncol 2006; 24:587). Assessment & Plan (10/16/2015 8:52 PM EDT): Images from the original note were not included. She has evidence of GSM as well as point tenderness in her vestibule. In addition to Vagifem, I have also provided her with a prescription for aquaeous lidocaine (5% since she appears to have prescription coverage for it). This is based on a randomized trial by paige Bhatti al. Conducted in 49 women with breast cancer in which, compared to saline placebo, 4% aquaeous lidocaine significantly improved pain scores and enabled resumption of penetrative intercourse in the vast majority of participants (see Davy et al. J Clin Oncol 2015; 33:3394-400). She was agreeable to this trial. We discussed her current symptoms in the context of her relationship and her breast cancer diagnosis and current treatment using Jerome's model of female sexual function (Jerome Fitzgerald. Obstet and Gynecol 2001;98:350-353). As in this model, female sexual function is inter-related to a desire for intimacy, manifest by sexual stimuli, arousal, and once fullfilled, emotional and physical satisfaction. All of these areas are susceptible to being interrupted by cancer and its treatment, and it appears to be the case here. Finally, we discussed the differences in how intimacy and intercourse are experienced in men and women using Basson's model for women: In the figure on the left, female sexual health is depicted as a propogating [place] where a want of intimacy helps the body become stimulated and senses aroused; this in turn feeds desire, which when fulfilled, is experienced as satisfaction. That achievement helps propogate the [place] of intimacy. In the figure, intercourse is not an important aspect- rather it is a means towards achievement of satisfaction. For men, as depicted on the right, intercourse and intimacy are often experienced as interchangeable and tightly linked concepts. Hence, sometimes different terms are required to achieve a better understanding of sex, motivations, and needs. Lastly, I talked to her about a multipronged approach to sexual recovery, which includes vaginal moisturizers (eg, coconut oil applied externally, Replens or vitamin E applied internally) and the use of a good lubricant (with discussion of both water- and silicone-based lubricants). I emphasized the concept of play as a way to reconnect with her , in order to help re-discover areas of her body that remain sensual. We talked about ensuring that sexual recovery does not become work for them both and that the ultimate goal remain the pursuit of pleasure.She asked multiple questions, all of which I answered to her satisfaction. Malignant neoplasm of endometrium 10/16/2015 Assessment & Plan (10/16/2015 8:44 PM EDT): Images from the original note were not included. She has no evidence of disease and will follow-up with Dr. Palacios. Today I reviewed the data re: safety of estrogen replacement s/p hysterectomy for women with endometrial cancer. There are no data to show this has a negative impact on survival outcomes and indeed, the limited data show it is likely safe. This includes a randomized trial conducted by the Gynec[employer] Oncology Group (GOG 137) which included over 1200 women (predominantly with stage I endometrioid tumors) where, compared to placebo, estrogen treatment had no impact on the recurrence rate (Toni RR, et al. J Clin Oncol 2006; 24:587). Hence, I think this would be a reasonable therapeutic option given her genitourinary symptoms of menopause (GSM) and today I provided her with a prescription for vagifem. Otherwise, I recommend surveillance according to the Society of Gynecologic Oncologist guidelines: Family History Medical History Relation Comments Diabetes Brother Hypertension Brother Heart disease Father Heart disease Maternal Grandfather Dementia Maternal Grandmother COPD Mother Diabetes Mother Heart disease Mother Stroke Mother Heart disease Paternal Grandfather Heart disease Paternal Grandmother Diabetes Sister 1 Heart disease Sister 1 Hypertension Sister 1 Hypertension Sister 2 Relation Status Comments Brother Alive Father Maternal Grandfather Maternal Grandmother Mother Alive Paternal Grandfather Paternal Grandmother Sister 1 Alive Sister 2 Alive Social History Tobacco Use Types Packs/Day Years Used Date Smoking Tobacco: Former Cigarettes Comments:Quit 23 years ago Alcohol Use Standard Drinks/Week Comments Yes 0 (1 standard drink = 0.6 oz pur e alcohol) Social only Education Answer Date Recorded Are you interested in more education? Not on senthil e 10/08/2022 Are you concerned about learning? Not on file 10/08/2022 No 10/08/2022 No 10/08/2022 Digital Access Answer Date Recorded No 11/08/2022 No 11/08/2022 No 11/08/2022 Reliable internet access at home? Not on file 11/08/2022 Device with a working camera? Not on file Comments No Sex and Gender Information Value Date Recorded Sex Assigned at Female 01/30/2021 10:46 AM EDT Legal Sex Female 9:06 AM EDT Gender Identity Female 01/30/2021 10:46 AM EDT Sexual Orientation Not on file Last Filed Vital Signs Vital Sign Reading Time Taken Comments Blood Pressure 152/82 12/03/2015 11:26 AM EDT Pulse 85 12/03/2015 11:26 AM EDT Temperature 36.9 C (98.4 F) 12/03/2015 11:26 AM EDT Respiratory Rate 16 12/03/2015 11:2 6 AM EDT Oxygen Saturation 97% 12/03/2015 11: 26 AM EDT Inhaled Oxygen Concentration - - Weight 122.2 kg (269 lb 6.4 oz) 016 11:26 AM EDT Height 156.2 cm (5' 1.5 ) 07/24/2014 9:59 AM EST Body Mass Index 50.08 07/24/2014 9:59 AM EST Plan of Treatment Health Maintenance Due Date Last Done Comments CREATININE LEVEL 1959 LIPID PANEL 1959 POTASSIUM LEVEL 1959 DEPRESSION SCREENING 1971 SMOKING Hx and SMOKELESS TOB ACCO SCREENING 02/23/1972 HEPATITIS C SCREENING 1977 HIV ONE-TIME SCREENING (18-6 5 YEARS) 1977 ZOSTER VACCINES (1 of 2) 1978 MAMMOGRAM 1999 COLOGUARD 02/23/2004 COLONOSCOPY 02/23/2004 COLORECTAL CANCER SCREENING 02/23/2004 FIT TEST 02/23/2004 FOBT 02/23/2004 SIGMOIDOSCOPY 02/23/2004 VIRTUAL COLONOSCOPY 02/23/2004 PNEUMOCOCCAL VACCINES (50+ y ears) (2 of 2 - PCV) 06/13/2018 06/13/2017 COVID-19 VACCINE (2 - 2023-2 5 season) 2024 08/13/2020 OSTEOPOROSIS SCREENING INITI AL (ONE-TIME) 02/23/2024 Adult Td,Tdap Booster 10/20/2026 10/20/2016 RSV VACCINE (1 - 1-dose 75+ series) 2034 HEPATITIS A VACCINES Aged Out No long er eligible based on patient's age to complete this topic HIB VACCINES Aged Out No longer eligi ble based on patient's age to complete this topic MENINGOCOCCAL VACCINES (ACWY) Aged Out No longer eligible based on patient's age to complete this topic MENINGOCOCCAL VACCINES (B) Aged Out N o longer eligible based on patient's age to complete this topic Medical Devices Not on file Insurance [place] [facility] RE[place]EMENT [facility] MEDICARE O BLUE REPLACEMENT [facility] MEDICARE HMO BLUE REPLACEMENT [facility] MEDICARE HMO BLUE REPLACEMENT Care Teams Manager Software Relationship Specialty Start Date End Date Taylor Bess MD [address] [place] [address] PCP - General 08/27/15 Additional Source Comments The information contained in this document represents components of the legal health record. It is not the complete legal health record.[facility]
--- OUTSIDE RECORDS SUMMARY | 2025-02-07 14:24 | XMS_ITS | Clinical Summary ---
Author Organization [facility] Address [address] [place] [address] Care Team Providers Care Biologics Specialist Name Role Phone Unavailable Primary Care Provider Unavailabl e Social History Tobacco Use Types Packs/Day Years Used Date Smoking Tobacco: Never Assessed Sex and Gender Information Value Date Recorded Sex Assigned at Not on file Gender Identity Not on file Sexual Orientation Not on file Plan of Treatment Not on file
== END 2025-02-07 14:34 | disposition home or self-care (01) ==
LOC: HO.HGI 13:42
PROVIDERS: PCP Internal Medicine; Visit Provider Nurse Practitioner Family
DX: K21.00 Gastro-esophageal reflux disease with esophagitis, without bleeding (principal); E66.01 Morbid (severe) obesity due to excess calories; Z68.42 Body mass index [BMI] 45.0-49.9, adult; K22.4 Dyskinesia of esophagus; R19.7 Diarrhea, unspecified
CPT/HCPCS: 99213

== ENCOUNTER → 2025-02-07 13:41 | Outpatient (BNVA) | payer MEDICARE, SELFPAY | PROVIDERS: PCP Internal Medicine; Visit Provider Nurse Practitioner Family | DX: Z71.2 Person consulting for explanation of examination or test findings (principal); K21.00 Gastro-esophageal reflux disease with esophagitis, without bleeding; E66.01 Morbid (severe) obesity due to excess calories; K22.4 Dyskinesia of esophagus; R19.7 Diarrhea, unspecified | CPT/HCPCS: 99212 ==

== ENCOUNTER 2025-02-21 11:33 | Outpatient (REF) | payer MEDICARE, SELFPAY ==
--- NOTE | ~2025-02-21 | US_ITS ---
EXAMINATION: US THYROID CLINICAL INFORMATION: Nontoxic multinodular goiter. COMPARISON: March 27, 2024. TECHNIQUE: Linear transducer grayscale and color Doppler examination with attention to the region of the thyroid. FINDINGS: SIZE: Measurements of the thyroid lobes and nodules are given in sagittal, anteroposterior and transverse dimensions respectively. Right Thyroid Lobe: 4.7 x 1.7 x 2.0 cm, volume 7.4 mL Previous: 4.5 x 1.5 x 2.1 cm, volume 7.4 cc.. Parenchyma: The gland echotexture is heterogeneous. Thyroid vascularity is normal. Left Thyroid Lobe: 1.7 x 2.3 x 1.7 cm, volume 11.7 mL. Previous: 5.6 x 2.2 x 1.9 cm, volume 12.8 cc. Parenchyma: The gland echotexture is heterogeneous. Thyroid vascularity is normal. Isthmus: 0.4 cm in maximum AP dimension. 0.5 cm. Estimated total number of nodules greater than or equal to 1 cm: 2. Casting Machine Set Up Operator nodules are described as follows: 1. Location: Midportion right lobe. Size: 0.98 x 0.52 x 0.74 cm, volume 0.20 mL. Previous: 1.3 x 0.6 x 0.8 cm volume: 0.3 cc.. Nodule characteristics: Composition: Spongiform (0). Echogenicity: Shape: Margins: Echogenic Foci: ACR TI-RADS total points: 0 ACR TI-RADS category: 1 2. Location: Midportion to lower pole, right lobe. Size: 0.82 x 0.62 x 0.66 cm, volume 0.18 mL. Previous: 1.0 x 0.6 x 0.7 cm, volume 0.2 cc. Nodule characteristics: Composition: Spongiform (0). Echogenicity: Shape: Margins: Echogenic Foci: ACR TI-RADS total points: 0 ACR TI-RADS category: 1 3. Location: Lower pole left thyroid lobe. Size: 2.4 x 1.75 x 2.5 cm, volume 5.5 mL. Previous: 2.0 x 1.7 x 1.9 cm, volume: 3.4 cc. Nodule characteristics: Composition: Solid (2). Echogenicity: Hyperechoic (1). Shape: Not taller than wide (0). Margins: Smooth (0). Echogenic Foci: None (0). ACR TI-RADS total points: 3 ACR TI-RADS category: 3 NODES: No lymphadenopathy is seen in the tissue surrounding the thyroid gland. US/US thyroid IMPRESSION: ACR TI RADS category 3, dominant nodule left thyroid lobe. ACR TI-RADS RECOMMENDATION REFERENCE: Ultrasound-guided fine-needle aspiration, followup ultrasound, no further follow up. * TR1 (0 point) and TR2 (2 points): No FNA or follow up. * TR3 (3 points): FNA if more than or equal to 2.5 cm in maximum dimension, followup ultrasound in 1, 3 and 5 years if 1.5 to 2.4 cm in maximum dimension. * TR4 (4-6 points): FNA if more than or equal to 1.5 cm in maximum dimension, followup ultrasound in 1, 2, 3 and 5 years if 1 to 1.4 cm in maximum dimension. * TR5 (more than or equal to 7 points): FNA if more than or equal to 1 cm in maximum dimension, followup ultrasound every year for 5 years if 0.5 to 0.9 cm in maximum dimension. * TR3, TR4 or TR5 nodules that are below the size threshold for followup receive no follow up. Electronically signed by: Malik Norwood MD 02/21/2025 01:51 PM EDT
--- OUTSIDE RECORDS SUMMARY | 2025-02-21 15:56 | XMS_ITS | Clinical Summary ---
Author Organization [facility] Address [address] [place] [address] Care Team Providers Care Human Resource Advisor Name Role Phone Unavailable Primary Care Provider Unavailabl e Social History Tobacco Use Types Packs/Day Years Used Date Smoking Tobacco: Never Assessed Sex and Gender Information Value Date Recorded Sex Assigned at Not on file Gender Identity Not on file Sexual Orientation Not on file Plan of Treatment Not on file
--- OUTSIDE RECORDS SUMMARY | 2025-02-21 15:56 | XMS_ITS | Clinical Summary ---
Author Organization [facility] Address [address] [place] [id number] Phone Care Team Providers Care Child Care Center Administrator Name Role Phone Taylor Bess MD Primary [...] sexual health is depicted as a propogating [place] where a want of intimacy helps the body become stimulated and senses aroused; this in turn feeds desire, which when fulfilled, is experienced as satisfaction. That achievement helps propogate the [place] of intimacy. In the figure, intercourse is [...] DEPRESSION SCREENING 1971 SMOKING Hx and SMOKELESS TOBACCO SCREENING 02/23/1972 HEPATITIS C SCREENING 1977 HIV ONE-TIME SCREENING (18-65 YEARS) 1977 ZOSTER VACCINES (1 of 2) 1978 MAMMOGRAM 1999 COLOGUARD 02/23/2004 COLONOSCOPY 02/23/2004 COLORECTAL CANCER SCREENING 02/23/2004 FIT TEST 02/23/2004 FOBT 02/23/2004 SIGMOIDOSCOPY 02/23/2004 VIRTUAL COLONOSCOPY 02/23/2004 PNEUMOCOCCAL VACCINES (50+ years) (2 of 2 - PCV) 06/13/2018 06/13/2017 COVID-19 VACCINE (2 - 2023- season) 2024 08/13/2020 OSTEOPOROSIS SCREENING INITIAL (ONE-TIME) 02/23/2024 INFLUENZA VACCINE (#1) 2025 , 03/12/2019, 02/06/2018, Additional history exists Adult Td,Tdap Booster 10/20/2026 10/20/2016 RSV VACCINE [...] topic Medical Devices Not on file Insurance [address] [facility] [facility] [place] BL[place] BL[place] BLUE REPLACEMENT [facility] MEDICARE O BLUE REPLACEMENT [facility] MEDICARE O BLUE REPLACEMENT Care Teams Child Care Center Administrator Relationship Specialty Start Date End Date Taylor Bess MD [address] [place] [address] PCP - General 08/27/15 Additional Source Comments The information contained in this document represents components of the legal health record. It is not the complete legal health record.[facility]
== END 2025-02-21 11:34 | disposition home or self-care (01) ==
LOC: HO.HMGCX 11:33
PROVIDERS: PCP Internal Medicine; Visit Provider Internal Medicine
DX: E04.2 Nontoxic multinodular goiter (principal)
CPT/HCPCS: 76536

== ENCOUNTER → 2025-02-21 11:41 | Outpatient (BNV) | payer MEDICARE, SELFPAY | PROVIDERS: PCP Internal Medicine; Visit Provider Radiology Diagnostic Radiology | DX: E04.2 Nontoxic multinodular goiter (principal) | CPT/HCPCS: 76536 ==

== ENCOUNTER 2025-03-28 08:50 | Outpatient (AMB) | payer MEDICARE, SELFPAY ==
--- NOTE | 2025-03-28 09:16 | A.OFFPC_ITS ---
Vital Signs 03/28/25 09:20 Height 5 ft 1 in Weight 273 lb 2 oz BMI 51.6 BP 150/94 H Blood Pressure Location Lt brachial Position Sitting Pulse 93 Pulse Source Pulse Oximeter Temp 97.1 F Temp Source Temporal Artery Scan Pulse Oximetry (%) 97 Oxygen Delivery Method Room Air Intake Visit Reasons: dm Certified Flex Endoscope Reprocessor Required: No Accompanied by: Self / Same As Patient Allergies Iodinated Contrast Media (IV CONTRAST) Allergy (Severe, Verified 03/28/25 09:32) ANAPHYLAXIS morphine (MORPHINE) Allergy (Severe, Verified 03/28/25 09:32) CARDIAC ARREST Sulfa (Sulfonamide Antibiotics) (SULFA(SULFONAMIDE ANTIBIOTICS)) Allergy (Severe, Verified 03/28/25 09:32) WASNT ABLE TO SEE, right eye blindness adhesive tape Allergy (Intermediate, Verified 03/28/25 09:32) BLISTERS amoxicillin (Augmentin) Allergy (Intermediate, Verified 03/28/25 09:32) hives ciprofloxacin (Cipro) Allergy (Intermediate, Verified 03/28/25 09:32) hives clavulanic acid (Augmentin) Allergy (Intermediate, Verified 03/28/25 09:32) hives erythromycin base (Erythromycin Base) Allergy (Intermediate, Verified 03/28/25 0 9:32) HIVES iodine (IODINE) Allergy (Intermediate, Verified 03/28/25 09:32) BLISTERS levofloxacin (From LEVAQUIN) Allergy (Intermediate, Verified 03/28/25 09:32) RASH Penicillins Allergy (Unknown, Verified 03/28/25 09:32) stiff semaglutide (From Ozempic) Adverse Reaction (Severe, Verified 03/28/25 09:32) abdominal pain, constipation lobster Allergy (Intermediate, Uncoded 03/28/25 09:32) hives pork Allergy (Intermediate, Uncoded 03/28/25 09:32) hives Medication List - Last Reconciled 03/28/25 by Taylor Powers MD atorvastatin 40 mg PO BEDTIME 90 days blood sugar diagnostic (OneTouch Verio test strips) Use 1 test strips three times a day blood-glucose meter (OneTouch Verio Flex Meter) As directed 3x/day cyclobenzaprine 10 mg PO BEDTIME PRN 10 days [embecta pen needles 31 gauge x 8 mm Use 1 pen needle three times a day] empagliflozin (Jardiance) 10 mg PO DAILY 90 days fenofibrate 54 mg PO DAILY 90 days gabapentin 200 mg (2 x 100 mg) PO TID 90 days hydrocodone-acetaminophen 10-325 mg 1 tab PO Q8H PRN 30 days insulin NPH and regular human 100 unit/mL (70-30) (Novolin 70-30 FlexPen U-100 Insulin) 32 units (0.32 mL) subcut BID 90 days Lactobacillus acidophilus 1,000 mmu cells PO DAILY lisinopril 2.5 mg PO DAILY 90 days meloxicam 15 mg PO DAILY PRN 30 days metformin 1,000 mg PO BID 90 days ondansetron 8 mg PO Q8H PRN 30 days pantoprazole 20 mg PO BID pen needle, diabetic (Easy Comfort Pen [place]) As directed- BID pen needle, diabetic (Comfort EZ Pen [place]) As directed [scooter As directed] trospium 20 mg PO BID Tobacco use date assessed: 03/28/25 Fall risk assessment: No Falls in past year Last assessed Fall Risk: 03/28/25 Dental Screening Dental Screen Date: 03/28/25 Did you have a dental visit in the last 12 months?: No Did you have a dental problem in the last 6 months where you did not have access to dental care?: No Was dental information given to patient?: No HPI HPI Comments History of Present Illness Details The patient is a 65-year-old female presenting with management of Type 2 Diabetes Mellitus, hypertension, and dyslipidemia. Her diabetes management includes insulin therapy with NovoLog, taking 30 units in the morning and 32 units at bedtime, which is being adjusted to 35 units at night due to elevated blood glucose levels. She also takes metformin 1000 mg twice daily and Jardiance 10 mg in the morning. The patient's hypertension is managed with lisinopril 2.5 mg, which she takes in the morning to avoid gastrointestinal upset. Her blood pressure was noted to be elevated during this visit. She is morbidly obese with a BMI of 51.6 and was advised to do diet and exercise to reach BMI goal less than 30. For dyslipidemia, she is on atorvastatin 40 mg and fenofibrate, which is being held to reassess triglyceride levels in four months. The patient has a history of osteopenia, confirmed by a recent bone density scan, and is taking calcium with vitamin D and K supplements. She has a thyroid nodule that has increased in size to 2.4 cm, and she is scheduled for an endocrinology appointment next week for further evaluation. The patient has a history of cancer and has undergone previous biopsies. The patient reports a yeast infection, which is being treated with antifungal medication. She also experiences urinary urgency, managed with trospium prescribed by her urologist. The patient has multiple allergies, including to contrast, morphine, sulfate, adhesive tape, Augmentin, Cipro, erythromycin, iodine, Levaquin, penicillin, Ozempic, lobster, and pork. She received a flu vaccination recently and has a history of receiving a pneumonia vaccine before the age of 65. [facility] Medical History (Updated 03/28/25 @ 10:32 by Taylor Powers MD) Diarrhea Esophageal dysmotility Chronic GERD Morbid obesity with BMI of 45.0-49.9, adult Sinusitis Multinodular thyroid Lumbar pain HLD (hyperlipidemia) HTN (hypertension) T2DM (type 2 diabetes mellitus) Bilateral knee pain Super-super obese Right shoulder pain Chronic back pain Frequent UTI Anxiety Encounter for screening colonoscopy GERD (gastroesophageal reflux disease) Multinodular thyroid Goiter Obesity due to excess calories Diabetes type 2, uncontrolled Right knee pain Morbid obesity Mixed hyperlipidemia 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 Diabetes mellitus Essential hypertension Lumbar degenerative disc disease Surgical History History of esophagogastroduodenoscopy (EGD) Hx of colonoscopy Status post fine needle aspiration Hx of cystoscopy History of total abdominal hysterectomy and bilateral salpingo-oophorectomy History of lumbar fusion History of carpal tunnel release History of lumbar laminectomy History of cholecystectomy History of tubal ligation Family History Father Melanoma Hypercholesteremia Substance use disorder Mother Diabetes Hypertension Bladder cancer Maternal Grandmother Cancer Family/Other FH: mental illness Social History Household Members: Spouse Housing: House Alcohol intake: never Patient Tobacco Use Status: Former Tobacco user Tobacco use type: Cigarette Years Smoked: 30 years e-Cigarette/Vaping Use: Never Used Second Hand Smoke Exposure: No service: No Current occupational status: disabled Cognitive needs: No Hearing needs: No Vision needs: Yes Questionnaire PHQ-9 Over the last 2 weeks, how often have you been bothered by any of the following problems? 1. Little interest or pleasure in doing things: not at all 2. Feeling down, depressed, or hopeless: not at all 3. Trouble falling or staying asleep, or sleeping too much: not at all 4. Feeling tired or having little energy: not at all 5. Poor appetite or overeating: not at all 6. Feeling bad about yourself - or that you are a failure or have let yourself or your family down: not at all 7. Trouble concentrating on things, such as reading the newspaper or watching television: not at all 8. Moving or speaking so slowly that other people could have noticed. Or the opposite - being so fidgety or restless that you have been moving around a lot more than usual: not at all 9. Thoughts that you would be better off or of hurting yourself in some way: not at all Total score: 0 Depression Screening Interpretation: Negative Depression Screening Done: Yes 93730 - PHQ-9 Billing: Yes Source: Developed by Drs. Cabrera Mccloud, Leilani Flanagan, Per Garcia and colleagues, with an educational charline from [employer]. Thrive Questionnaire Date Thrive assessed: 11/14/24 I am a: Patient What is your living situation today?: I have a steady place to live Within the past 12 months, did the food you bought not last and you didn't have the money to get more?: I choose not to answer this question Within the past 12 months, did you worry whether your food would run out before you got money to buy more?: I choose not to answer this question Do you have trouble paying for medicines?: I choose not to answer this question Do you have trouble getting transportation to medical appointments?: I choose not to answer this question Do you have trouble paying your heating and electricity bill?: I choose not to answer this question Do you have trouble taking care of your child, family member or friend?: I choose not to answer this question Do you have trouble with day-to-day activities such as bathing, preparing meals, shopping, managing finances, etc.?: I choose not to answer this question Are you currently unemployed and looking for a job?: I choose not to answer this question Are you interested in more education?: I choose not to answer this question Please select the resources that you would like help with: None Currently or been in a relationship where the following occur: I choose not to answer THRIVE Score: 0 AUDIT C Alcohol Use Questionnaire (AUDIT-C) 1. How often do you have a drink containing alcohol?: Never 3. How often do you have six or more drinks on one occasion?: Never Total Score: 0 Score Reviewed/Action Taken: No MATHEW-7 AMB Questionnaire MATHEW-7 Date MATHEW - 7 assessed: 07/04/24 Feeling nervous, anxious, or on edge: 0 = Not at all Not being able to stop or control worryin = Not at all Worrying too much about different things: 0 = Not at all Trouble relaxin = Not at all Being so restless that it is hard to sit still: 0 = Not at all Becoming easily annoyed or irritable: 0 = Not at all Feeling afraid as if something awful might happen: 0 = Not at all Total MATHEW-7 score (0-4 normal; 5-9 mild; 10-14 moderate; 15-21 severe): 0 Source: Developed by Drs. Cabrera Mccloud, Leilani Flanagan, Per Garcia and colleagues, with an educational charline from [employer]. MATHEW-7 Assessment Billing MATHEW-7 Assessment Tool: MATHEW-7 Assessment 05547 Review of Systems Const All systems reviewed & are unremarkable except as noted in HPI and below Card Denies chest pain at rest, Denies chest pain with activity, Denies edema, Denies irregular heart rhythm, Denies claudication, Denies dyspnea, Denies dyspnea on exertion, Denies orthopnea, Denies paroxysmal nocturnal dyspnea and Denies slow heart rate Resp Denies cough, Denies dyspnea and Denies dyspnea on exertion Physical exam (Primary Care) Vital Signs: Last Vital Signs Temp 97.1 F 03/28/25 09:20 Pulse 93 03/28/25 09:20 BP 150/94 H 03/28/25 09:20 Pulse Ox 97 03/28/25 09:20 Oxygen Delivery Method Room Air 03/28/25 09:20 BMI result Body Mass Index 51.6 BMI Assessment/Plan discussion: High BMI High, discussed plan: lifestyle, weight reduction, dietary and physical activity Tobacco/Smoking Status: Tobacco use Status Tobacco use date assessed 03/28/25 03/28/25 09:26 Patient Tobacco Use Status Former Tobacco user 03/28/25 09:17 Tobacco use type Cigarette 03/28/25 09:17 e-Cigarette/Vaping Use Never Used 03/28/25 09:17 PHQ-9: PHQ-9 Score PHQ-9: Total score 0 03/28/25 09:38 Depression Screening Interpretation: Negative Thrive Assessment: Date of Thrive Assessment Date Thrive assessed 11/14/24 03/28/25 09:17 Currently or been in a relationship where the following occur: I choose not to answer Resp Effort & Inspection: normal respiratory effort Auscultation: clear to auscultation bilaterally Cardio Jugular venous distension: no JVD Rate: regular rate Rhythm: regular rhythm Heart sounds: S1 normal heart sound present and S2 normal heart sound present Extrem General: Yes full ROM Results AMB Hemoglobin A1c AMB Hemoglobin A1c 7.6 % Last Edit by Lisa Caba CMA on 03/28/25 09:28 Results Reviewed Results Reviewed: Laboratory Last Values Hgb A1c (Clinic) 7.6 % (4.0-6.0) H 03/28/25 09:26 Coding Level of Care Code Est Pt Level 4 (06226) Complex EM visit Add On G2211 Diagnoses Essential hypertension I10 Mixed hyperlipidemia E78.2 Type 2 diabetes mellitus with hyperglycemia, with long-term current use of insulin E11.65; Z79.4 Diabetes mellitus complication status: with hyperglycemia Thyroid nodule E04.1 Gastroesophageal reflux disease with esophagitis without hemorrhage K21.00 Esophagitis presence: with esophagitis Esophagitis bleeding: without hemorrhage Morbid obesity with BMI of 50.0-59.9, adult E66.01; Z68.43 Osteopenia M85.80 Additional Codes MATHEW-7 Assessment Billing - MATHEW-7 Assessment Tool: MATHEW-7 Assessment 42747 ([id number]) PHQ-9 - 98446 - PHQ-9 Billing: Yes ([id number]) Assessment & Plan Assessment & Plan (1) Essential hypertension: Code(s): I10 - Essential (primary) hypertension Category: Medical (2) Mixed hyperlipidemia: Code(s): E78.2 - Mixed hyperlipidemia Category: Medical (3) Type 2 diabetes mellitus, with long-term current use of insulin: Code(s): E11.9 - Type 2 diabetes mellitus without complications; Z79.4 - middle or intermediate school principal (current) use of insulin Category: Medical Qualifiers: Diabetes mellitus complication status: with hyperglycemia Qualified Code(s): E11.65 - Type 2 diabetes mellitus with hyperglycemia; Z79.4 - middle or intermediate school principal (current) use of insulin (4) Thyroid nodule: Code(s): E04.1 - Nontoxic single thyroid nodule Category: Medical (5) GERD (gastroesophageal reflux disease): Comment: 01/22/25 EGD -Fundic gland polyps, No Duvall's Code(s): K21.9 - Gastro-esophageal reflux disease without esophagitis Category: Medical Qualifiers: Esophagitis presence: with esophagitis Esophagitis bleeding: without hemorrhage Qualified Code(s): K21.00 - Gastro-esophageal reflux disease with esophagitis, without bleeding (6) Morbid obesity with BMI of 50.0-59.9, adult: Code(s): E66.01 - Morbid (severe) obesity due to excess calories; Z68.43 - Body mass index [BMI] 50.0-59.9, adult Category: Medical (7) Osteopenia: Code(s): M85.80 - Other specified disorders of bone density and structure, unspecified site Category: Medical Plan Plan 1. Type 2 diabetes mellitus without complications E11.9 HCC 19 The patient's insulin regimen will be adjusted to 30 units in the morning and 35 units at bedtime to better control blood glucose levels. She will continue metformin 1000 mg twice daily and Jardiance 10 mg in the morning. Follow-up blood work is planned in four months to assess glucose control. 2. Essential (primary) hypertension I10 The patient will continue lisinopril 2.5 mg in the morning to manage blood pressure. Blood pressure will be monitored closely, and adjustments will be made as necessary. 3. Hyperlipidemia, unspecified E78.5 The patient will continue atorvastatin 40 mg, and fenofibrate will be held to reassess triglyceride levels in four months. 4. Other specified disorders of bone density and structure, unspecified site M85.80 The patient is advised to continue calcium with vitamin D and K supplements to manage osteopenia. 5. Nontoxic single thyroid nodule E04.1 The patient is scheduled for an endocrinology appointment next week for further evaluation of the thyroid nodule. 6. Candidiasis, unspecified B37.9 The patient will be treated with antifungal medication for the yeast infection. Orders: Orders Lipid Panel 4 Months E78.5 - Hyperlipidemia, unspecified Microalbumin, Random (w Creat) 4 Months R80.9 - Proteinuria, unspecified Vitamin B12 and Folate 4 Months E53.8 - Deficiency of other specified B group vitamins AMB Hemoglobin A1c Today Z13.9 - Encounter for screening, unspecified Vitamin D 25-OH Total 4 Months E55.9 - Vitamin D deficiency, unspecified Comprehensive [place]. Panel Fast 4 Months E11.9 - Type 2 diabetes mellitus without complications Medications: New fluconazole 150 mg PO Q3D 2 tabs 0RF 2 doses Changed From insulin NPH and regular human 100 unit/mL (70-30) (Novolin 70-30 FlexPen U- 100 Insulin) 32 units (0.32 mL) subcut BID 90 days 57.6 mL 3RF E11.65 - Type 2 diabetes mellitus with hyperglycemia To insulin NPH and regular human 100 unit/mL (70-30) (Novolin 70-30 FlexPen U- 100 Insulin) 35 units (0.35 mL) subcut BID 63 mL 3RF 90 days E11.65 - Type 2 diabetes mellitus with hyperglycemia Refilled metformin 1,000 mg PO BID 180 tabs 1RF 90 days Discontinued fenofibrate Discontinued Reason: Patient Completed Course 54 mg PO DAILY 90 days 90 tabs 0RF
[2025-03-28 09:20] VITALS: BP 150/94; PULSE 93; TEMP 36.2; O2SAT 97; BMI 51.6
--- OUTSIDE RECORDS SUMMARY | 2025-03-28 09:42 | XMS_ITS | Clinical Summary ---
Author Organization [facility] Address [address] [place] [address] Care Team Providers Care Machine Clerical Verifier Name Role Phone Unavailable Primary Care Provider Unavailabl e Social History Tobacco Use Types Packs/Day Years Used Date Smoking Tobacco: Never Assessed Sex and Gender Information Value Date Recorded Sex Assigned at Not on file Gender Identity Not on file Sexual Orientation Not on file Plan of Treatment Not on file
--- OUTSIDE RECORDS SUMMARY | 2025-03-28 09:42 | XMS_ITS | Clinical Summary ---
Author Organization [facility] Address [address] [place] [id number] Phone Care Team Providers Care Pantomimist Name Role Phone Taylor Bess MD Primary [...] sexual health is depicted as a propogating red cliff where a want of intimacy helps the body become stimulated and senses aroused; this in turn feeds desire, which when fulfilled, is experienced as satisfaction. That achievement helps propogate the red cliff of intimacy. In the figure, intercourse is [...] TOBACCO SCREENING 02/23/1972 HEPATITIS C SCREENING 1977 ZOSTER VACCINES (1 of 2) 1978 MAMMOGRAM 1999 COLOGUARD 02/23/2004 COLONOSCOPY 02/23/2004 COLORECTAL CANCER SCREENING 02/23/2004 FIT TEST 02/23/2004 FOBT 02/23/2004 SIGMOIDOSCOPY 02/23/2004 VIRTUAL COLONOSCOPY 02/23/2004 PNEUMOCOCCAL VACCINES (50+ years) (2 of 2 - PCV) 06/13/2018 06/13/2017 OSTEOPOROSIS SCREENING INITIAL (ONE-TIME) 02/23/2024 INFLUENZA VACCINE (#1) 2025 0, 03/12/2019, 02/06/2018, Additional history exists COVID-19 VACCINE (2 - 2024- season) 2025 08/13/2020 Adult Td,Tdap Booster 10/20/2026 10/20/2016 RSV VACCINE [...] Devices Not on file Insurance [facility] [place] BLUE REPLACEMENT [facility] MEDICARE O BLUE REPLACEMENT [facility] MEDICARE O BLUE REPLAC[place] Care Teams Pantomimist Relationship Specialty Start Date End Date Taylor Bess MD [address] [place] [address] PCP - General 08/27/15 Additional Source Comments The information contained in this document represents components of the legal health record. It is not the complete legal health record.[facility]
== END 2025-03-28 10:03 | disposition home or self-care (01) ==
LOC: HO.HMCH 08:50
PROVIDERS: PCP Internal Medicine; Visit Provider Internal Medicine
DX: I10 Essential (primary) hypertension (principal); E78.2 Mixed hyperlipidemia; E11.65 Type 2 diabetes mellitus with hyperglycemia; Z79.4 Long term (current) use of insulin; E04.1 Nontoxic single thyroid nodule; K21.00 Gastro-esophageal reflux disease with esophagitis, without bleeding; E66.01 Morbid (severe) obesity due to excess calories; Z68.43 Body mass index [BMI] 50.0-59.9, adult; M85.80 Other specified disorders of bone density and structure, unspecified site; Z13.9 Encounter for screening, unspecified

== ENCOUNTER → 2025-03-28 08:50 | Outpatient (BNVA) | payer MEDICARE, SELFPAY | PROVIDERS: PCP Internal Medicine; Visit Provider Internal Medicine | DX: I10 Essential (primary) hypertension (principal); E78.2 Mixed hyperlipidemia; E11.65 Type 2 diabetes mellitus with hyperglycemia; E04.1 Nontoxic single thyroid nodule; K21.00 Gastro-esophageal reflux disease with esophagitis, without bleeding; M85.80 Other specified disorders of bone density and structure, unspecified site; E66.01 Morbid (severe) obesity due to excess calories; B37.9 Candidiasis, unspecified; Z68.43 Body mass index [BMI] 50.0-59.9, adult; Z79.4 Long term (current) use of insulin; Z79.84 Long term (current) use of oral hypoglycemic drugs | CPT/HCPCS: 83036; 96127; 99212 ==

== ENCOUNTER 2025-05-07 13:16 | Outpatient (AMB) | payer MEDICARE, SELFPAY ==
--- NOTE | 2025-05-07 13:18 | A.OFFVIS_ITS ---
Vital Signs 05/07/25 13:19 Height 5 ft 1 in Weight 271 lb 2.697 oz BMI 51.2 BP 120/80 Blood Pressure Location Rt brachial Position Sitting Pulse 91 Pulse Source Pulse Oximeter Pulse Oximetry (%) 96 Oxygen Delivery Method Room Air Intake Visit Reasons: Nontoxic single thyroid nodule Intake Note: NEW Patient presents today to establish care for Nontoxic Single Thyroid Nodule: Glass Beveler Required: No Accompanied by: Self / Same As Patient Allergies Iodinated Contrast Media (IV CONTRAST) Allergy (Severe, Verified 05/07/25 13:18) ANAPHYLAXIS morphine (MORPHINE) Allergy (Severe, Verified 05/07/25 13:18) CARDIAC ARREST Sulfa (Sulfonamide Antibiotics) (SULFA(SULFONAMIDE ANTIBIOTICS)) Allergy (Severe, Verified 05/07/25 13:18) WASNT ABLE TO SEE, right eye blindness adhesive tape Allergy (Intermediate, Verified 05/07/25 13:18) BLISTERS amoxicillin (Augmentin) Allergy (Intermediate, Verified 05/07/25 13:18) hives ciprofloxacin (Cipro) Allergy (Intermediate, Verified 05/07/25 13:18) hives clavulanic acid (Augmentin) Allergy (Intermediate, Verified 05/07/25 13:18) hives erythromycin base (Erythromycin Base) Allergy (Intermediate, Verified 05/07/25 13:18) HIVES iodine (IODINE) Allergy (Intermediate, Verified 05/07/25 13:18) BLISTERS levofloxacin (From LEVAQUIN) Allergy (Intermediate, Verified 05/07/25 13:18) RASH Penicillins Allergy (Unknown, Verified 05/07/25 13:18) stiff semaglutide (From Ozempic) Adverse Reaction (Severe, Verified 05/07/25 13:18) abdominal pain, constipation lobster Allergy (Intermediate, Uncoded 05/07/25 13:18) hives pork Allergy (Intermediate, Uncoded 05/07/25 13:18) hives HPI Comments Details: 65 years old female with past medical history of esophageal dysmotility, thyroid nodule, obesity, type 2 diabetes, hypertension, anemia, seen in the office for initial evaluation of thyroid nodules. She was initially seen by Dr. Salomon in our office in February 2023, but then was lost to follow-up. She reports overall doing regular. Her PCP manages her DM. In terms of her thyroid, she has had normal thyroid labs since last visit. She reports low energy. sleep: poor sleep due to nocturia Weight: gained 5 lbs since she stopped ozempic 4-5 months ago hair/nail/skin: dry skin, overwise no issues constipation: no compresion: intermittent dysphagia/bolus sensation. No decubitus compressive symptoms. No history of thyroid cancer known, but multiple family member had thyroidectomy due to goiter. Per records review, she is status post FNA of left lower pole nodule benign cytology. Ultrasounds have been stable in size. Laboratory Tests 11/19/24 08:11 TSH 1.82 Imaging: Thyroid ultrasound 02/21/2025 COMPARISON: March 27, 2024. TECHNIQUE: Linear transducer grayscale and color Doppler examination with attention to the region of the thyroid. FINDINGS: SIZE: Measurements of the thyroid lobes and nodules are given in sagittal, anteroposterior and transverse dimensions respectively. Right Thyroid Lobe: 4.7 x 1.7 x 2.0 cm, volume 7.4 mL Previous: 4.5 x 1.5 x 2.1 cm, volume 7.4 cc.. Parenchyma: The gland echotexture is heterogeneous. Thyroid vascularity is normal. Left Thyroid Lobe: 1.7 x 2.3 x 1.7 cm, volume 11.7 mL. Previous: 5.6 x 2.2 x 1.9 cm, volume 12.8 cc. Parenchyma: The gland echotexture is heterogeneous. Thyroid vascularity is normal. Isthmus: 0.4 cm in maximum AP dimension. 0.5 cm. Estimated total number of nodules greater than or equal to 1 cm: 2. Drawbench Operator Helper nodules are described as follows: 1. Location: Midportion right lobe. Size: 0.98 x 0.52 x 0.74 cm, volume 0.20 mL. Previous: 1.3 x 0.6 x 0.8 cm volume: 0.3 cc.. Nodule characteristics: Composition: Spongiform (0). Echogenicity: Shape: Margins: Echogenic Foci: ACR TI-RADS total points: 0 ACR TI-RADS category: 1 2. Location: Midportion to lower pole, right lobe. Size: 0.82 x 0.62 x 0.66 cm, volume 0.18 mL. Previous: 1.0 x 0.6 x 0.7 cm, volume 0.2 cc. Nodule characteristics: Composition: Spongiform (0). Echogenicity: Shape: Margins: Echogenic Foci: ACR TI-RADS total points: 0 ACR TI-RADS category: 1 3. Location: Lower pole left thyroid lobe. Size: 2.4 x 1.75 x 2.5 cm, volume 5.5 mL. Previous: 2.0 x 1.7 x 1.9 cm, volume: 3.4 cc. Nodule characteristics: Composition: Solid (2). Echogenicity: Hyperechoic (1). Shape: Not taller than wide (0). Margins: Smooth (0). Echogenic Foci: None (0). ACR TI-RADS total points: 3 ACR TI-RADS category: 3 NODES: No lymphadenopathy is seen in the tissue surrounding the thyroid gland. IMPRESSION: ACR TI RADS category 3, dominant nodule left thyroid lobe. Thyroid ultrasound 03/12/2024 COMPARISON: Ultrasound soft tissue head/neck thyroid dated 03/18/2022 and 01/13/2021. TECHNIQUE: Linear transducer grayscale and color Doppler examination with attention to the region of the thyroid. FINDINGS: SIZE: Measurements of the thyroid lobes and nodules are given in sagittal, anteroposterior and transverse dimensions respectively. Right Thyroid Lobe: 4.5 x 1.5 x 2.1 cm, volume 7.4 mL. Previously 5.2 x 1.2 x 1.9 cm, volume 6.09 mL. Parenchyma: The gland echotexture is homogeneous. Thyroid vascularity is normal. Left Thyroid Lobe: 5.6 x 2.2 x 1.9 cm, volume 12.2 mL. Previously 4.9 x 1.5 x 2.1 cm, volume 8.2 mL. Parenchyma: The gland echotexture is homogeneous. Thyroid vascularity is normal. Isthmus: 0.5 cm in maximum AP dimension. Previously 0.5 cm. Estimated total number of nodules greater than or equal to 1 cm: 3. Drawbench Operator Helper nodules are described as follows: 1. Location: Right mid. Size: 1.3 x 0.6 x 0.8 cm, volume 0.3 mL. Previously: 1.0 x 0.6 x 0.8 cm, volume 0.3 mL. Nodule characteristics: Composition: Spongiform (0). Echogenicity: Anechoic (0). Shape: Not taller than wide (0). Margins: Smooth (0). Echogenic Foci: None (0). ACR TI-RADS total points: 0 Previous: 0 ACR TI-RADS category: 1 Previous: 1 Significant change in size (>/= 20% in 2 dimensions and minimal increase of 2 mm or 50% or greater increase in volume): No Change in features: No Change in ACR TI-RADS risk category: No 2. Location: Right mid inferior. Size: 1.0 x 0.6 x 0.7 cm, volume 0.2 mL. Previously: 0.9 x 0.7 x 0.8 cm, volume 0.2 mL. Nodule characteristics: Composition: Spongiform (0). Echogenicity: Anechoic (0). Shape: Not taller than wide (0). Margins: Smooth (0). Echogenic Foci: None (0). ACR TI-RADS total points: 0 Previous: 0 ACR TI-RADS category: 1 Previous: 1 Significant change in size (>/= 20% in 2 dimensions and minimal increase of 2 mm or 50% or greater increase in volume): No Change in features: No Change in ACR TI-RADS risk category: No 3. Location: Left inferior. Size: 2.0 x 1.7 x 2.3 cm, volume 4.1 mL. Previously: 2.0 x 1.7 x 1.9 cm, volume 3.4 mL. Nodule characteristics: Composition: Solid (2). Echogenicity: Hyperechoic (1). Shape: Not taller than wide (0). Margins: Smooth (0). Echogenic Foci: None (0). ACR TI-RADS total points: 3 Previous: 3 ACR TI-RADS category: 3 Previous: 3 Significant change in size (>/= 20% in 2 dimensions and minimal increase of 2 mm or 50% or greater increase in volume): No Change in features: No Change in ACR TI-RADS risk category: No NODES: No lymphadenopathy is seen in the tissue surrounding the thyroid gland. IMPRESSION: Multinodular goiter. The left lower pole nodule meets the criteria for follow-up in one year. 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 Diabetes mellitus Essential hypertension Lumbar degenerative disc disease Surgical History History of esophagogastroduodenoscopy (EGD) Hx of colonoscopy Status post fine needle aspiration Hx of cystoscopy History of total abdominal hysterectomy and bilateral salpingo-oophorectomy History of lumbar fusion History of carpal tunnel release History of lumbar laminectomy History of cholecystectomy History of tubal ligation Family History Father Melanoma Hypercholesteremia Substance use disorder Mother Diabetes Hypertension Bladder cancer Maternal Grandmother Cancer Family/Other FH: mental illness Social History Household Members: Spouse Housing: House Alcohol intake: never Patient Tobacco Use Status: Former Tobacco user Tobacco use type: Cigarette Years Smoked: 30 years e-Cigarette/Vaping Use: Never Used Second Hand Smoke Exposure: No service: No Current occupational status: disabled Cognitive needs: No Hearing needs: No Vision needs: Yes Physical Exam Vital Signs: Last Vital Signs Pulse 91 05/07/25 13:19 BP 120/80 05/07/25 13:19 Pulse Ox 96 05/07/25 13:19 Oxygen Delivery Method Room Air 05/07/25 13:19 BMI result Body Mass Index 51.2 Assessment & Plan Assessment & Plan (1) Multinodular thyroid: Code(s): E04.2 - Nontoxic multinodular goiter Category: Medical Plan: Patient with well known MNG, she previously underwent FNA of left lower pole thyroid nodule, which resulted benign. After that the nodule has remained overall stable, with some growth noted from 2023 to 2024, but calculated Volume Change (%) 34.2, not requiring FNA. Patient reports that due to her previous experiences with thyroid FNA, she would not agree to have FNA if required. She would rather monitor and if needed undergo surgery directly without FNA. Plan Repeat Thyroid US and TFTs in 1 year Plan 45 minutes spent reviewing previous records, labs, imaging, education and documenting in the chart Coding Level of Care Code New Pt Level 4 (97000) Diagnoses Multinodular thyroid E04.2
[2025-05-07 13:19] VITALS: BP 120/80; PULSE 91; O2SAT 96; BMI 51.2
--- OUTSIDE RECORDS SUMMARY | 2025-05-07 17:05 | XMS_ITS | Clinical Summary ---
Author Organization [facility] Address [address] [place] [address] Care Team Providers Care Degreasing Solution Reclaimer Name Role Phone Unavailable Primary Care Provider Unavailabl e Social History Tobacco Use Types Packs/Day Years Used Date Smoking Tobacco: Never Assessed Sex and Gender Information Value Date Recorded Sex Assigned at Not on file Gender Identity Not on file Sexual Orientation Not on file Plan of Treatment Not on file
--- OUTSIDE RECORDS SUMMARY | 2025-05-07 17:05 | XMS_ITS | Clinical Summary ---
Author Organization [facility] Address [address] [place] [id number] Phone Care Team Providers Care Dairy Husbandry Worker Name Role Phone Taylor Bess MD Primary [...] sexual health is depicted as a propogating makah where a want of intimacy helps the body become stimulated and senses aroused; this in turn feeds desire, which when fulfilled, is experienced as satisfaction. That achievement helps propogate the makah of intimacy. In the figure, intercourse is [...] Devices Not on file [place] [facility] [place] BLUE REPLACEMENT [facility] MEDICARE O BLUE REPLACEMENT [facility] MEDICARE O BLUE REPLAC[place] Care Teams Dairy Husbandry Worker Relationship Specialty Start Date End Date Taylor Bess MD [address] [place] [address] PCP - General 08/27/15 Additional Source Comments The information contained in this document represents components of the legal health record. It is not the complete legal health record.[facility]
== END 2025-05-07 13:55 | disposition home or self-care (01) ==
LOC: HO.ENCR 13:17
PROVIDERS: PCP Internal Medicine; Visit Provider Student in an Organized Health Care Education/Training Program
DX: E04.2 Nontoxic multinodular goiter (principal)
CPT/HCPCS: 99204

== ENCOUNTER → 2025-05-07 13:16 | Outpatient (BNVA) | payer MEDICARE, SELFPAY | PROVIDERS: PCP Internal Medicine; Visit Provider Student in an Organized Health Care Education/Training Program | DX: E04.2 Nontoxic multinodular goiter (principal) | CPT/HCPCS: 99202 ==

== ENCOUNTER 2025-05-28 08:53 | Outpatient (REF) | payer MEDICARE, SELFPAY ==
--- OUTSIDE RECORDS SUMMARY | 2025-05-28 09:51 | XMS_ITS | Clinical Summary ---
Author Organization [facility] Address [address] [place] [id number] Phone Care Team Providers Care Faculty Support Coordinator Name Role Phone Taylor Bess MD Primary [...] sexual health is depicted as a propogating kaw where a want of intimacy helps the body become stimulated and senses aroused; this in turn feeds desire, which when fulfilled, is experienced as satisfaction. That achievement helps propogate the kaw of intimacy. In the figure, intercourse is [...] topic Medical Devices Not on file Insurance [facility] MEDICARE O BLUE REPLACEMENT [facility] MEDICARE O BLUE REPLACEMENT [place]ACEMENT Care Teams Faculty Support Coordinator Relationship Specialty Start Date End Date Taylor Bess MD [address] [place] [address] PCP - General 08/27/15 Additional Source Comments The information contained in this document represents components of the legal health record. It is not the complete legal health record.[facility]
--- OUTSIDE RECORDS SUMMARY | 2025-05-28 09:51 | XMS_ITS | Patient Health Record ---
Author Organization [facility] Address [address] [place] [address] Care Team Providers Care Rescue Instructor Name Role Phone BELÉN HERMAN MD, GIBRAN Primary Care Provider ILEANA Contreras Unavailable Allergies Allergen (clinical drug ingredient) Drug/Non Drug Allergy documented on EMR Reaction Allergy Type Onset Date Status erythromycin EMYCIN (uncoded) hives Allergy Active Pork PORK (uncoded) hives Allergy Activ e povidone-iodine Betadine blisters Drug Allergy A ctive morphine Morphine Cardiac arrest Drug Allergy Ac tive Penicillin Stiffness Drug Allergy Active Shellfish (FN) Shellfish-derived Products hives Drug Allergy Active Substance with sulfonamide structure and antibacterial mechanism of action (substance) Sulfa Antibiotics eye went blind Drug Allergy Active Tape blisters Allergy Active Reason For Referral No Information Medications Medication SIG (Take, Route, Frequency, Duration) Notes Start Date End Date Status glipiZIDE ER 5 MG Tablet Extended Release 24 Hour 2 tab(s) orally twice a day; Duration: 30 day(s) 01/22/2019 Active HYDROcodone-Acetamino phen 7.5-325 MG Tablet 1 tab(s) orally every 6 hours prn Active glipiZIDE ER 10 MG Tablet Extended Release 24 Hour 1 tab(s) orally twice a day 01/05/2018 Active Pantoprazole Sodium 40 MG Tablet Delayed Release 1 tab(s) breakfast orally once a day Active POTASSIUM CITRATE, 454 G 1080 MG 1 TAB ORALLY 1 PILL EVERY 3 DAYS *Please review for potential replacement for e-prescription and drug interaction check* Active Fenofibrate 54 MG Tablet 1 tab(s) orally once a day Active Atorvastatin Calcium 40 MG Tablet 1 tab(s) orally once a day Active metFORMIN HCl 1000 MG Tablet 1 tab(s) orally 2 times a day; Duration: 30 Active ONE TOUCH VERIO TEST STRIP TO CHECK BLOOD GLUCOSE DX E11.9 TWICE A DAY; Duration: 90 DAYS *Please review for potential replacement for e-prescription and drug interaction check* 01/16/2018 Active Social History Tobacco Use: Social History Observation Description Date Details (start date - stop date) Former Smoker NA - NA Social History Tobacco Use: Social Info Question Answer Notes Smoking Are you a: former smoker How long has it been since you last smoked? > 10 years Additional Details Category Social Info Options Details General Occupation: Disabled asbestos exposure: no alcohol use: no drug use: no Hobbies/Exercise habits: none Coffee/Tea/Soda: yes 1 cup of coffee daily, 2-3 cups of soda daily. Marital Status experience no Living with Pets none smokers in household no Drugs no Problems Problem Type SNOMED Code ICD Code Onset Dates Problem Status W/U Status Risk Notes Problem Type 2 diabetes mellitus ([id number]) Type 2 diabetes mellitus (E11.9) Active confirmed Plan Of Treatment No Information Insurance Providers Payer Name Payer Address Payer Phone Subscriber Number Group Number Insured Name Patient Relationship to Insured Coverage Start Date Coverage End Date [employer] [facility] [address] [place] [phone] [id number] DOTTIE CERDA Self - patient is the insured Medical (General) History Medical History History ICD Code Uterine CA High Cholesterol GERD Kidney stones Osteoarthritis Pneumonia Stomach Ulcer L5 S1 nerve cut Type 2 diabetes - dx ~ ? hx [facility] - Dr. Darell teague Surgical History Surgery Date(Month/Year) Removal of orange peel (lung) Hysterectomy - total Kidney stone surgery Gallbladder removal 9 Back surgeris Hospitalization History Reason Date(Month/Year) [facility] [place]
--- OUTSIDE RECORDS SUMMARY | 2025-05-28 09:51 | XMS_ITS | Clinical Summary ---
Author Organization [facility] Prior to 11/10/[address] [place] [id number] Care Team Providers Care Lithographers Printer Name Role Phone Unavailable Primary Care Provider Unavailabl e Social History Tobacco Use Types Packs/Day Years Used Date Smoking Tobacco: Never Assessed Sex and Gender Information Value Date Recorded Sex Assigned at Not on file Gender Identity Not on file Sexual Orientation Not on file Plan of Treatment Not on file
[2025-05-28 11:01] LABS: Appearance Urine Clear; Glucose Urine UA >=1000 mg/dL (Negative); PH 5.5 (5.0-9.0); Specific Gravity - Urine 1.025 (1.005-1.025); UMIC TRIGGER UACC YES
[2025-05-28 11:05] LABS: UACC Culture Trigger YES
== END 2025-05-28 08:54 | disposition home or self-care (01) ==
LOC: HO.HMGCLDS 08:53
PROVIDERS: PCP Internal Medicine; Visit Provider Internal Medicine
DX: R30.0 Dysuria (principal)
CPT/HCPCS: 81001; 81003; 87086; 87088; 87186